=== PATIENT | male | born 1955 | race Caucasian/White ===

== ENCOUNTER → 2016-06-14 | Outpatient (CLI) | payer OTHER ==
[~2016-06-14] MED LIST: AMIT75TA2 PO; ASPI81TA28 PO; ATOR-24 PO; CYAN500T PO; INSU100I23 PO; LIRA18IN SQ; LISI-725 PO; METF-384 PO; NVLNI SQ
[2016-06-14 10:29] LABS: BLOOD UREA NITROGEN 10 mg/dl (7-18); BUN/CREATININE RATIO 10.5 (10-20); CALCIUM 9.1 mg/dl (8.5-10.1); CARBON DIOXIDE 27 mmol/L (21-32); CHLORIDE 107 mmol/L (98-107); GLUCOSE 114 mg/dl (70-99); POTASSIUM 4.7 mmol/L (3.5-5.1); SODIUM 142 mmol/L (136-145)
[2016-06-14 10:34] LABS: CHOLESTEROL 150 mg/dl (0-200); CHOLESTEROL/HDL RATIO 3.8; HDL CHOLESTEROL 40 mg/dl; LDL CHOLESTEROL CALCULATED 74 mg/dl; TRIGLYCERIDES 179 mg/dl (0-150); VERY LOW DENSITY LIPOPROT CALC 36 mg/dl
[2016-06-14 10:40] LABS: ESTIMATED AVERAGE GLUCOSE 192 mg/dl; HA1C FLAG Normal (Normal)
== END | disposition home or self-care (01) ==
LOC: C.LAB1850 09:07
PROVIDERS: ATTEND Internal Medicine Pulmonary Disease
DX: F52.8 Other sexual dysfunction not due to a substance or known physiological condition (principal); E11.42 Type 2 diabetes mellitus with diabetic polyneuropathy

== ENCOUNTER → 2016-11-04 | Outpatient (CLI) | payer OTHER ==
[2016-11-04 12:31] LABS: ESTIMATED AVERAGE GLUCOSE 197 mg/dl; HA1C FLAG Normal (Normal)
== END | disposition home or self-care (01) ==
LOC: C.LAB1850 10:22
PROVIDERS: ATTEND Nurse Practitioner Adult Health
DX: E11.49 Type 2 diabetes mellitus with other diabetic neurological complication (principal)

== ENCOUNTER → 2016-12-12 | Outpatient (CLI) | payer OTHER ==
--- NOTE | 2016-12-12 10:18 | DIAGNOSTIC IMAGING REPORT ---
LUNG SCREENING, LOW DOSE CLINICAL HISTORY: Pulmonary nodule Pain COMPARISON STUDY: No previous studies for comparison. CT DOSE: 89.63 mGy.cm TECHNIQUE: Low-dose helical CT was acquired without intravenous contrast from lung apices to bases and reconstructed at 2.5 mm every 2 mm. CAD was utilized for this study. A dose lowering technique was utilized adhering to the principles of ALARA. FINDINGS: Lungs are clear. No significant pulmonary nodularity. No significant mediastinal or hilar adenopathy. Small pericardial cyst. Trace pericardial effusion. Nonobstructing 4 mm upper pole right renal calcification. Small hiatal hernia. IMPRESSION: 1. Lungs are clear. 2. Small pericardial effusion. 3. Small benign pericardial cyst. 4. Small nonobstructing right renal calcification. CAD FINDINGS: Overall Lung RADS Category: 1 Lung RADS Management Recommendation: Lung-RADS 1: Continue annual screening in 12 months. Lung RADS Follow Up Date: 2017-12-12 Lung RADS Nodule ID: The above report was generated using voice recognition software. It may contain grammatical, syntax or spelling errors. Electronically signed by: New Nunez M.D. 12/12/2016 10:17 AM Dictated Date/Time: 12/12/2016 10:10 AM
== END | disposition home or self-care (01) ==
LOC: C.CTS 09:16
PROVIDERS: ATTEND Neuromusculoskeletal Medicine & OMM
DX: Z72.0 Tobacco use (principal); Z87.891 Personal history of nicotine dependence; I31.3 Pericardial effusion (noninflammatory); N20.0 Calculus of kidney

== ENCOUNTER 2016-12-30 13:56 | Emergency (ER) | payer OTHER ==
[~2016-12-30] VITALS: Ht 175.3 cm; Wt 111.7 kg
[2016-12-30 14:03] VITALS: TEMP 37; Ht 175.3 cm; Wt 111.7 kg
[2016-12-30 14:56] LABS: BASO % 0.4 %; BASO ABS # 0.04 K/uL (0-0.2); COMPLETE YES; EOS % 3.6 %; HEMATOCRIT 42.8 % (42-52); IG% 0.4 %; LYMPH % 39.4 %; LYMPH ABS # 4.47 K/uL (1.2-3.4); MEAN CELL VOLUME 92.4 fL (80-100); MEAN CORPUSCULAR HEMOGLOBIN 30.7 pg (25-34); MEAN CORPUSCULAR HGB CONC 33.2 g/dl (32-36); MEAN PLATELET VOLUME 10.3 fL (7.4-10.4); MONO % 4.3 %; NEUT % 51.9 %; PLATELET COUNT 241 K/uL (130-400); RED BLOOD COUNT 4.63 M/uL (4.7-6.1); WHITE BLOOD COUNT 11.34 K/uL (4.8-10.8)
[2016-12-30 15:02] LABS: URINE APPEARANCE CLEAR (CLEAR); URINE BILIRUBIN NEG (NEG); URINE COLOR YELLOW; URINE NITRITE NEG (NEG); URINE SPECIFIC GRAVITY 1.021 (1.000-1.030); UROBILINOGEN NEG (NEG)
[2016-12-30 15:05] LABS: MANUAL MICROSCOPIC REQUIRED? NO; REVIEW REQ? NO
--- NOTE | 2016-12-30 15:16 | DIAGNOSTIC IMAGING REPORT ---
KUB CLINICAL HISTORY: right flank pain eval for stone pain COMPARISON STUDY: No previous studies for comparison. FINDINGS: Possible 3 mm calculus overlying the course of the distal right ureter within the soft tissue pelvic region. Bilateral nephrocalcinosis poorly seen in the right due to overlying bowel content. Bowel pattern itself is nonobstructive. IMPRESSION: Vascular calcification versus 3 mm calculus distal right ureter. Bilateral nephrocalcinosis. The above report was generated using voice recognition software. It may contain grammatical, syntax or spelling errors. Electronically signed by: New Nunez M.D. 12/30/2016 3:15 PM Dictated Date/Time: 12/30/2016 3:13 PM
[2016-12-30 15:17] LABS: BUN/CREATININE RATIO 12.9 (10-20); CALCIUM 9.6 mg/dl (8.5-10.1); CREATININE 1.2 mg/dl (0.60-1.40); POTASSIUM 4.1 mmol/L (3.5-5.1)
[2016-12-30 16:01] VITALS: BP 135/75; PULSE 80; O2SAT 95
[2016-12-30] MEDS ORDERED: LIRA18IN SQ (16:06)
[2016-12-30] MEDS ORDERED: METF-384 PO (16:06)
[2016-12-30] MEDS ORDERED: INSU100I23 PO (16:06)
[2016-12-30] MEDS ORDERED: ASPI81TA28 PO (16:06)
[2016-12-30] MEDS ORDERED: LISI-725 PO (16:06)
[2016-12-30] MEDS ORDERED: NVLNI SQ (16:06)
[2016-12-30] MEDS ORDERED: AMIT75TA2 PO (16:06)
[2016-12-30] MEDS ORDERED: ATOR-24 PO (16:06)
[2016-12-30] MEDS ORDERED: CYAN500T PO (16:06)
--- NOTE | 2016-12-30 16:20 | EMERGENCY ROOM VISIT NOTE ---
History Report prepared by Tammy: Andrey Ramos Under the Supervision of: Dr. Joselo Holland M.D. First contact with patient: 14:20 Chief Complaint: ABDOMINAL PAIN Stated Complaint: STOMACH PAIN Nursing Triage Summary: pt states, "Something popped in my belly." pt states 40 minutes ago he felt a pop to right lower abdomen, pain radiates to right flank. pt states he was lifting heavy things yesterday. denies urinary symptoms. pt states pain at this time is tolerable. History of Present Illness The patient is a 61 year old male who presents to the Emergency Room with complaints of resolved right lower quadrant abdominal pain that started an hour ago. He rates his pain as a 7/10 in severity. The patient describes his pain as sharp and as if something popped. He states that the pain radiated to his back. The patient reports that he started to experience diaphoresis and hot flashes. He reports that the pain persisted until about 30 minutes ago and the pain resolve. The patient admits that he had a CT scan a couple of weeks ago that showed a right sided kidney stone. He also reports that the CT scan showed a hiatal hernia. He admits that he has a history of hypertension, which he takes medication for, neuropathy, and Diabetes Mellitus. The patient denies fever, vomiting, diarrhea, urinary symptoms, chest pain, and shortness of breath. Source of History: patient Onset: an hour ago Position: abdomen (RLQ) Symptom Intensity: 7/10 Quality: sharp, other ("pop") Timing: resolved Associated Symptoms: + diaphoresis, No fevers, No chest pain, No SOB, No vomiting, No diarrhea, No urinary symptoms Review of Systems See HPI for pertinent positives & negatives. A total of 10 systems reviewed and were otherwise negative. Past Medical & Surgical Medical Problems: (1) Diabetes (2) Hiatal hernia (3) Hypertension (4) Kidney stones (5) Neuropathy Family History Patient reports no known family medical history. Social History Smoking Status: Current Every Day Smoker Marital Status: Housing Status: lives with significant other Current/Historical Medications Scheduled Amitriptyline Hcl (Elavil), 75 MG PO HS Aspirin (Aspirin Ec), 81 MG PO DAILY Atorvastatin (Lipitor), 40 MG PO HS Cyanocobalamin (Vitamin B-12), 1,000 MCG PO DAILY Insulin Glargine (Basaglar Kwikpen), 20 UNITS PO HS Insulin Human NPH (Novolin N), 20 UNITS SQ HS Liraglutide (Victoza), 1.8 MG SQ DAILY Lisinopril (Zestril), 20 MG PO DAILY Metformin Hcl (Glucophage), 1,000 MG PO BID Allergies Coded Allergies: No Known Allergies (Verified , 12/30/16) Physical Exam Vital Signs Date Time Temp Pulse Resp B/P (MAP) Pulse Ox O2 Delivery O2 Flow Rate FiO2 12/30/16 16:01 80 20 135/75 95 12/30/16 14:03 37.0 79 18 134/77 94 Room Air Physical Exam Constitutional: Vital signs reviewed. Eyes: Pupils are equal round reactive to light. Conjunctiva are noninjected. ENT: Pharynx is clear without erythema or exudate. Mucous membranes are moist. Neck supple without meningeal signs. Respiratory: Clear to auscultation bilaterally. Breath sounds are equal bilaterally. Cardiovascular: Regular rate and rhythm. No rubs or gallops. GI: Soft, nondistended and nontender. Bowel sounds are present. No testicular tenderness or swelling. No evidence of inguinal hernia. Musculoskeletal: No peripheral edema. No lower extremity tenderness. Integumentary: No cyanosis. Neurological: The patient is awake and alert. No focal deficits. Psychiatric: Normal affect. Medical Decision & Procedures ER Provider Diagnostic Interpretation: X-ray results as stated below per interpretation by me and the radiologist: KUB CLINICAL HISTORY: right flank pain eval for stone pain COMPARISON STUDY: No previous studies for comparison. FINDINGS: Possible 3 mm calculus overlying the course of the distal right ureter within the soft tissue pelvic region. Bilateral nephrocalcinosis poorly seen in the right due to overlying bowel content. Bowel pattern itself is nonobstructive. IMPRESSION: Vascular calcification versus 3 mm calculus distal right ureter. Bilateral nephrocalcinosis. The above report was generated using voice recognition software. It may contain grammatical, syntax or spelling errors. Electronically signed by: New Nunez M.D. 12/30/2016 3:15 PM Dictated Date/Time: 12/30/2016 3:13 PM Laboratory Results 12/30/16 14:20 Red Blood Count 4.63, Mean Corpuscular Volume 92.4, Mean Corpuscular Hemoglobin 30.7, Mean Corpuscular Hemoglobin Concent 33.2, Mean Platelet Volume 10.3, Neutrophils (%) (Auto) 51.9, Lymphocytes (%) (Auto) 39.4, Monocytes (%) (Auto) 4.3, Eosinophils (%) (Auto) 3.6, Basophils (%) (Auto) 0.4, Neutrophils # (Auto) 5.89, Lymphocytes # (Auto) 4.47, Monocytes # (Auto) 0.49, Eosinophils # (Auto) 0.41, Basophils # (Auto) 0.04 12/30/16 14:20 Test 12/30/16 14:05 12/30/16 14:20 Urine Color YELLOW Urine Appearance CLEAR (CLEAR) Urine pH 5.0 (4.5-7.5) Urine Specific [place] 1.021 (1.000-1.030) Urine Protein NEG (NEG) Urine Glucose (UA) NEG (NEG) Urine Ketones NEG (NEG) Urine Occult Blood 2+ (NEG) Urine Nitrite NEG (NEG) Urine Bilirubin NEG (NEG) Urine Urobilinogen NEG (NEG) Urine Leukocyte Esterase NEG (NEG) Urine WBC (Auto) 1-5 /hpf (0-5) Urine RBC (Auto) 5-10 /hpf (0-4) Urine Hyaline Casts (Auto) 1-5 /lpf (0-5) Urine Epithelial Cells (Auto) 10-20 /lpf (0-5) Urine Bacteria (Auto) NEG (NEG) White Blood Count 11.34 K/uL (4.8-10.8) Red Blood Count 4.63 M/uL (4.7-6.1) Hemoglobin 14.2 g/dL (14.0-18.0) Hematocrit 42.8 % (42-52) Mean Corpuscular Volume 92.4 fL (80-100) Mean Corpuscular Hemoglobin 30.7 pg (25-34) Mean Corpuscular Hemoglobin Concent 33.2 g/dl (32-36) Platelet Count 241 K/uL (130-400) Mean Platelet Volume 10.3 fL (7.4-10.4) Neutrophils (%) (Auto) 51.9 % Lymphocytes (%) (Auto) 39.4 % Monocytes (%) (Auto) 4.3 % Eosinophils (%) (Auto) 3.6 % Basophils (%) (Auto) 0.4 % Neutrophils # (Auto) 5.89 K/uL (1.4-6.5) Lymphocytes # (Auto) 4.47 K/uL (1.2-3.4) Monocytes # (Auto) 0.49 K/uL (0.11-0.59) Eosinophils # (Auto) 0.41 K/uL (0-0.5) Basophils # (Auto) 0.04 K/uL (0-0.2) RDW Standard Deviation 43.8 fL (36.4-46.3) RDW Coefficient of Variation 13.0 % (11.5-14.5) Immature Granulocyte % (Auto) 0.4 % Immature Granulocyte # (Auto) 0.04 K/uL (0.00-0.02) Anion Gap 7.0 mmol/L (3-11) Est Creatinine Clear Calc Drug Dose 81.7 ml/min Estimated GFR () 76.3 Estimated GFR (Non- 65.8 BUN/Creatinine Ratio 12.9 (10-20) Calcium Level 9.6 mg/dl (8.5-10.1) Total Bilirubin 0.6 mg/dl (0.2-1) Direct Bilirubin 0.2 mg/dl (0-0.2) Aspartate Amino Transf (AST/SGOT) 65 U/L (15-37) Alanine Aminotransferase (ALT/SGPT) 242 U/L (12-78) Alkaline Phosphatase 125 U/L (45-117) Total Protein 7.8 gm/dl (6.4-8.2) Albumin 4.2 gm/dl (3.4-5.0) Lipase 276 U/L (73-393) Laboratory results as reviewed by me. ED Course 1434: The patient was evaluated in room A12B. A complete history and physical exam was performed. 1541: I reevaluated the patient and he is no pain. He denies any tenderness in his abdomen. I discussed test results and possible CT scan, which he preferred to hold off on. I told him to follow up with his doctor. The patient is ready for discharge. Medical Decision This is a 61-year-old male who presents with right-sided flank pain. Differential diagnosis includes renal colic, hydronephrosis, hernia, appendicitis, ruptured appendicitis, muscle strain. I did perform a limited focused review of portions of the patient's old chart on the electronic medical record. The patient has had a visit on December 12 when he had a CT done. A non obstructive right kidney stone of 4 mm was found. I did evaluate the patient as noted above. The patient is presenting with sudden onset of right-sided abdominal pain. He states the pain is now completely resolved. He has no tenderness on examination. He has no signs of hernia on examination. He is asymptomatic at this time. He did have a CAT scan of the lungs which demonstrated a right intrarenal calculus. His symptoms seem most likely consistent with renal colic. IV access was established. I did order and personally review the patient's urinalysis as described above. There is hematuria but no signs of infection. I did order and review the patient's blood work as noted in the electronic medical record. His white blood cell count is elevated slightly. His LFTs are also slightly elevated as well. I did order a KUB x-ray. I did review the images myself as well as the radiology report as described above. The patient does have a constipation in the right pelvis that could be consistent with a distal ureteral stone. I did reevaluate the patient. He is completely asymptomatic at this time. He has no tenderness on exam. I did discuss the test results with him in detail. Given his history, physical exam, urine analysis and x-ray I did feel that renal colic was the most likely explanation. I did, however, offer CT scanning for further evaluation but the patient deferred at this time. He will follow closely with his doctor. I did review her return instructions with him as well as his laboratory findings. He will have his doctor repeat his LFTs. He was discharged in good condition. Medication Reconcilliation Current Medication List: was personally reviewed by me Blood Pressure Screening Patient's blood pressure: Elevated blood pressure Blood pressure disposition: Elevated BP felt to be situational Impression Primary Impression: Right flank pain Additional Impression: Abnormal LFTs Scribe Attestation The scribe's documentation has been prepared under my direct and personally reviewed by me in its entirety. I confirm that the note above accurately reflects all work, treatment, procedures, and medical decision making performed by me. Departure Information Dispostion Home / Self-Care Referrals No Doctor, Assigned (PCP) Forms Call Back Authorization, HOME CARE DOCUMENTATION FORM, IMPORTANT VISIT INFORMATION Patient Instructions ED Flank Pain Uncertain Cause, My [facility] Additional Instructions You have been examined and treated today on an emergency basis only. This is not a substitute for, or an effort to provide, complete comprehensive medical care. It is impossible to recognize and treat all injuries or illnesses in a single emergency department visit. It is therefore important that you follow up closely with your physician. Call as soon as possible for an appointment. Return for worsening symptoms or if you develop fever, vomiting, or any other concerning symptoms. Problem Qualifiers
== END 2016-12-30 16:02 | disposition home or self-care (01) ==
LOC: C.EDB 14:00 → C.EDA 16:02
DX: R10.31 Right lower quadrant pain (principal); R94.5 Abnormal results of liver function studies; N20.0 Calculus of kidney; K44.9 Diaphragmatic hernia without obstruction or gangrene; I10 Essential (primary) hypertension; E11.40 Type 2 diabetes mellitus with diabetic neuropathy, unspecified; F17.200 Nicotine dependence, unspecified, uncomplicated; Z87.442 Personal history of urinary calculi; Z79.82 Long term (current) use of aspirin; Z79.4 Long term (current) use of insulin; Z79.84 Long term (current) use of oral hypoglycemic drugs

== ENCOUNTER → 2017-02-25 | Outpatient (CLI) | payer OTHER ==
[2017-02-25 12:19] LABS: ESTIMATED AVERAGE GLUCOSE 197 mg/dl; HA1C FLAG Normal (Normal)
== END | disposition home or self-care (01) ==
LOC: C.LAB1850 11:01
PROVIDERS: ATTEND Neuromusculoskeletal Medicine & OMM
DX: Z51.81 Encounter for therapeutic drug level monitoring (principal); E11.49 Type 2 diabetes mellitus with other diabetic neurological complication; Z79.4 Long term (current) use of insulin

== ENCOUNTER → 2017-06-10 | Outpatient (CLI) | payer OTHER ==
[2017-06-10 09:52] LABS: BLOOD UREA NITROGEN 13 mg/dl (7-18); CALCIUM 9.3 mg/dl (8.5-10.1); CARBON DIOXIDE 24 mmol/L (21-32); CREATININE 1.13 mg/dl (0.60-1.40); GLUCOSE 148 mg/dl (70-99); POTASSIUM 4.2 mmol/L (3.5-5.1); SODIUM 137 mmol/L (136-145)
[2017-06-10 09:56] LABS: ALKALINE PHOSPHATASE 59 U/L (45-117); ALT/SGPT 50 U/L (12-78); AST/SGOT 33 U/L (15-37); CHOLESTEROL 129 mg/dl (0-200); LDL CHOLESTEROL CALCULATED 54 mg/dl; TOTAL PROTEIN 7.6 gm/dl (6.4-8.2)
[2017-06-10 10:22] LABS: HEMOGLOBIN A1C 9.8 % (4.5-5.6)
== END | disposition home or self-care (01) ==
LOC: C.LAB1850 07:08
PROVIDERS: ATTEND Neuromusculoskeletal Medicine & OMM
DX: Z00.00 Encounter for general adult medical examination without abnormal findings (principal); E78.5 Hyperlipidemia, unspecified; I10 Essential (primary) hypertension; E11.49 Type 2 diabetes mellitus with other diabetic neurological complication

== ENCOUNTER 2017-07-18 13:07 | Inpatient (IN) | payer OTHER ==
[~2017-07-18] VITALS: Ht 175.3 cm; Wt 110.0 kg
[~2017-07-18 13:07] MED LIST changes: -AMIT75TA2 PO; -ATOR-24 PO; -CYAN500T PO; -INSU100I23 PO; -LISI-725 PO; -METF-384 PO; -NVLNI SQ
[2017-07-18] MEDS ORDERED: ASPIRIN 81 MG CHEW PO STA (13:36)
[2017-07-18 13:42] LABS: BASO % 0.3 %; BASO ABS # 0.03 K/uL (0-0.2); EOS % 3.1 %; EOS ABS # 0.27 K/uL (0-0.5); HEMATOCRIT 42.1 % (42-52); HEMOGLOBIN 14.7 g/dL (14.0-18.0); IG# 0.03 K/uL (0.00-0.02); LYMPH % 35.4 %; LYMPH ABS # 3.04 K/uL (1.2-3.4); MEAN CELL VOLUME 89.2 fL (80-100); MEAN CORPUSCULAR HEMOGLOBIN 31.1 pg (25-34); MEAN CORPUSCULAR HGB CONC 34.9 g/dl (32-36); MEAN PLATELET VOLUME 9.6 fL (7.4-10.4); MONO % 6.8 %; MONO ABS # 0.58 K/uL (0.11-0.59); NEUT % 54.1 %; NEUT ABS # 4.63 K/uL (1.4-6.5); PLATELET COUNT 210 K/uL (130-400); RED CELL DISTRIBUTION WIDTH SD 42.9 fL (36.4-46.3); WHITE BLOOD COUNT 8.58 K/uL (4.8-10.8)
[2017-07-18] MEDS: NITROGLYCERIN 0.4 MG SL PER TAB CHARGE SL PRN ×3 (13:48→14:01)
--- NOTE | 2017-07-18 14:02 | DIAGNOSTIC IMAGING REPORT ---
SINGLE VIEW CHEST CLINICAL HISTORY: Atypical chest pain. FINDINGS: An AP, portable, upright chest radiograph is compared to study dated 09/29/2012. Correlation is made with chest CT dated 12/12/2016. The examination is degraded by portable technique and apical lordotic positioning. The heart is enlarged and there is atherosclerotic calcification of the thoracic aorta. The pulmonary vasculature is noncongested. Emphysema and chronic interstitial thickening are similar to previous. No airspace consolidation or pleural effusion is identified. No pneumothorax is seen. The bony thorax is grossly intact. IMPRESSION: Cardiomegaly and emphysema with no acute cardiopulmonary abnormality. Electronically signed by: Shaheen Nelson M.D. 07/18/2017 2:01 PM Dictated Date/Time: 07/18/2017 2:00 PM
[2017-07-18 14:04] LABS: BLOOD UREA NITROGEN 13 mg/dl (7-18); CALCIUM 9.8 mg/dl (8.5-10.1); CARBON DIOXIDE 27 mmol/L (21-32); CREATININE 1.22 mg/dl (0.60-1.40); GLUCOSE 237 mg/dl (70-99); POTASSIUM 4.1 mmol/L (3.5-5.1); SODIUM 135 mmol/L (136-145)
[2017-07-18 14:10] LABS: CKMB < 0.5 ng/ml (0.5-3.6)
[2017-07-18] MEDS ORDERED: MoRPHine SULFATE 4 MG/ML 1 ML CARP\\VIAL IV STA (14:21)
[2017-07-18 15:27] LABS: ALBUMIN 4.4 gm/dl (3.4-5.0); TOTAL PROTEIN 8.4 gm/dl (6.4-8.2)
[2017-07-18] MEDS ORDERED: MAGNESIUM HYDROXIDE SUSP 30 ML UDC PO PRN (16:00)
[2017-07-18] MEDS ORDERED: ALUMINUM/MAGNESIUM/SIMETH (MAALOX MAX) 30 ML UDC PO PRN (16:00)
[2017-07-18] MEDS ORDERED: ONDANSETRON INJ 2 MG/ML 2 ML VIAL IV PRN (16:00)
[2017-07-18] MEDS ORDERED: POLYETHYLENE (MIRALAX) 17 GM PACK PO PRN (16:00)
[2017-07-18] MEDS ORDERED: ACETAMINOPHEN 325 MG TAB PO PRN (16:00)
[2017-07-18] MEDS ORDERED: LISI-725 PO (16:06)
[2017-07-18] MEDS ORDERED: CYAN500T PO (16:06)
[2017-07-18] MEDS ORDERED: AMIT75TA2 PO (16:06)
[2017-07-18] MEDS ORDERED: NVLNI SQ (16:06)
[2017-07-18] MEDS ORDERED: METF-384 PO (16:06)
[2017-07-18] MEDS ORDERED: INSU100I23 PO (16:06)
[2017-07-18] MEDS ORDERED: ATOR-24 PO (16:06)
[2017-07-18 17:12] VITALS: BP 122/75; PULSE 74; TEMP 36.5; O2SAT 96; Ht 175.3 cm; Wt 110.0 kg
[2017-07-18 17:14] LABS: HEP C IGG 13 YRS+OLDER_RFLX NEG (NEG)
--- NOTE | 2017-07-18 17:30 | EMERGENCY ROOM VISIT NOTE ---
History Report prepared by Tammy: Maye Yoon Under the Supervision of: Dr. Patrick Ramos D.O. First contact with patient: 13:25 Chief Complaint: CHEST PAIN Stated Complaint: CHEST PAIN WITH TINGLING IN LEFT HAND History of Present Illness The patient is a 62 year old male who presents to the Emergency Room with complaints of constant chest aching beginning at 10 am this morning. The patient states he has had chest pain previously which was indigestion. He reports this current pain is different because he has numbness tingling in his fingers which he has never had before. He reports his pain started in his center chest before moving to left sided chest. The patient rates his pain as a 5/10. He notes taking Zyrtec and Tylenol with no relief. The patient has a history of diabetes, hypertension, high cholesterol and a hiatal hernia. He reports a family history of cardiac disease. The patient is a smoker. Pt denies headache, change in vision, fevers, shortness of breath, nausea, vomiting, diarrhea, pain with urination, and melena. Source of History: patient Onset: 10 am Position: chest (left) Symptom Intensity: 5/10 Quality: ache Timing: constant Associated Symptoms: + chest pain, + numbness, No fevers, No headache, No SOB, No nausea, No vomiting, No diarrhea, No urinary symptoms Review of Systems See HPI for pertinent positives & negatives. A total of 10 systems reviewed and were otherwise negative. Past Medical & Surgical Medical Problems: (1) Chest pain (2) Diabetes (3) Hiatal hernia (4) Hypertension (5) Kidney stones (6) Neuropathy Family History Patient reports no known family medical history. Social History Smoking Status: Current Every Day Smoker Marital Status: Housing Status: lives with significant other Current/Historical Medications Scheduled Amitriptyline Hcl (Elavil), 75 MG PO HS Aspirin (Aspirin Ec), 81 MG PO HS Atorvastatin (Lipitor), 40 MG PO HS Cyanocobalamin (Vitamin B-12), 1,000 MCG PO DAILY Insulin Glargine (Basaglar Kwikpen), 22 UNITS PO QAM Insulin Human NPH (Novolin N), 30 UNITS SQ HS Liraglutide (Victoza), 1.8 MG SQ HS Lisinopril (Zestril), 20 MG PO DAILY Metformin Hcl (Glucophage), 1,000 MG PO BID Allergies Coded Allergies: No Known Allergies (Verified , 12/30/16) Physical Exam Vital Signs Date Time Temp Pulse Resp B/P (MAP) Pulse Ox O2 Delivery O2 Flow Rate FiO2 07/18/17 15:50 84 18 129/63 96 Room Air 07/18/17 14:55 71 18 163/88 95 Room Air 07/18/17 14:03 88 18 148/85 94 Room Air 07/18/17 13:59 91 18 144/91 94 Room Air 07/18/17 13:56 90 18 151/93 95 Room Air 07/18/17 13:40 36.9 95 18 165/93 97 07/18/17 13:40 90 07/18/17 13:30 97 Room Air 07/18/17 13:30 89 18 173/97 96 Room Air 07/18/17 13:17 36.6 84 20 171/89 97 Room Air Physical Exam GENERAL: Sitting up in bed, alert, well appearing, well nourished, no distress, non-toxic EYE EXAM: normal conjunctiva. OROPHARYNX: no exudate, no erythema, lips, buccal mucosa, and tongue normal and mucous membranes are moist NECK: supple, no nuchal rigidity, no adenopathy, non-tender LUNGS: Clear to auscultation. Normal chest wall mechanics HEART: no murmurs, S1 normal and S2 normal ABDOMEN: abdomen soft, non-tender, normo-active bowel sounds, no masses, no rebound or guarding. BACK: Back is symmetrical on inspection and there is no deformity, no midline tenderness, no CVA tenderness. SKIN: no rashes and no bruising UPPER EXTREMITIES: upper extremities are grossly normal. radial pulses equal bilaterally LOWER EXTREMITIES: No pitting edema. calves equal bilaterally. NEURO EXAM: Normal sensorium, cranial nerves II-XII grossly intact, normal speech, no gross weakness of arms, no gross weakness of legs. Medical Decision & Procedures ER Provider Diagnostic Interpretation: Radiology results as stated below per my review and the radiologist's interpretation: SINGLE VIEW CHEST CLINICAL HISTORY: Atypical chest pain. FINDINGS: An AP, portable, upright chest radiograph is compared to study dated 09/29/2012. Correlation is made with chest CT dated 12/12/2016. The examination is degraded by portable technique and apical lordotic positioning. The heart is enlarged and there is atherosclerotic calcification of the thoracic aorta. The pulmonary vasculature is noncongested. Emphysema and chronic interstitial thickening are similar to previous. No airspace consolidation or pleural effusion is identified. No pneumothorax is seen. The bony thorax is grossly intact. IMPRESSION: Cardiomegaly and emphysema with no acute cardiopulmonary abnormality. Electronically signed by: Shaheen Nelson M.D. Laboratory Results 07/18/17 13:30 Red Blood Count 4.72, Mean Corpuscular Volume 89.2, Mean Corpuscular Hemoglobin 31.1, Mean Corpuscular Hemoglobin Concent 34.9, Mean Platelet Volume 9.6, Neutrophils (%) (Auto) 54.1, Lymphocytes (%) (Auto) 35.4, Monocytes (%) (Auto) 6.8, Eosinophils (%) (Auto) 3.1, Basophils (%) (Auto) 0.3, Neutrophils # (Auto) 4.63, Lymphocytes # (Auto) 3.04, Monocytes # (Auto) 0.58, Eosinophils # (Auto) 0.27, Basophils # (Auto) 0.03 07/18/17 13:30 Test 07/18/17 13:30 White Blood Count 8.58 K/uL (4.8-10.8) Red Blood Count 4.72 M/uL (4.7-6.1) Hemoglobin 14.7 g/dL (14.0-18.0) Hematocrit 42.1 % (42-52) Mean Corpuscular Volume 89.2 fL (80-100) Mean Corpuscular Hemoglobin 31.1 pg (25-34) Mean Corpuscular Hemoglobin Concent 34.9 g/dl (32-36) Platelet Count 210 K/uL (130-400) Mean Platelet Volume 9.6 fL (7.4-10.4) Neutrophils (%) (Auto) 54.1 % Lymphocytes (%) (Auto) 35.4 % Monocytes (%) (Auto) 6.8 % Eosinophils (%) (Auto) 3.1 % Basophils (%) (Auto) 0.3 % Neutrophils # (Auto) 4.63 K/uL (1.4-6.5) Lymphocytes # (Auto) 3.04 K/uL (1.2-3.4) Monocytes # (Auto) 0.58 K/uL (0.11-0.59) Eosinophils # (Auto) 0.27 K/uL (0-0.5) Basophils # (Auto) 0.03 K/uL (0-0.2) RDW Standard Deviation 42.9 fL (36.4-46.3) RDW Coefficient of Variation 13.0 % (11.5-14.5) Immature Granulocyte % (Auto) 0.3 % Immature Granulocyte # (Auto) 0.03 K/uL (0.00-0.02) Prothrombin Time 10.6 SECONDS (9.0-12.0) Prothromb Time International Ratio 1.0 (0.9-1.1) Anion Gap 5.0 mmol/L (3-11) Est Creatinine Clear Calc Drug Dose 79.8 ml/min Estimated GFR () 74.2 Estimated GFR (Non- 64.0 BUN/Creatinine Ratio 10.4 (10-20) Calcium Level 9.8 mg/dl (8.5-10.1) Total Bilirubin 1.7 mg/dl (0.2-1) Direct Bilirubin 1.1 mg/dl (0-0.2) Aspartate Amino Transf (AST/SGOT) 897 U/L (15-37) Alanine Aminotransferase (ALT/SGPT) 915 U/L (12-78) Alkaline Phosphatase 158 U/L (45-117) Total Creatine Kinase 107 U/L (39-308) Creatine Kinase MB < 0.5 ng/ml (0.5-3.6) Creatine Kinase MB Ratio (0-3.0) Troponin I < 0.015 ng/ml (0-0.045) Total Protein 8.4 gm/dl (6.4-8.2) Albumin 4.4 gm/dl (3.4-5.0) Lipase 267 U/L (73-393) Hepatitis B Surface Antigen NEG (NEG) Hepatitis C Antibody NEG (NEG) Laboratory results per my review. Medications Administered Medications (Trade) Dose Ordered Sig/Tia Route Start Time Stop Time Status Last Admin Dose Admin Nitroglycerin (Nitrostat Tab) 0.4 mg Q5M PRN SL 07/18/17 13:45 08/17/17 13:44 07/18/17 14:01 0.4 MG Aspirin (Aspirin Chew) 324 mg NOW STAT PO 07/18/17 13:36 4/13/18 13:37 DC 07/18/17 13:48 324 MG Morphine Sulfate (MoRPHine SULFATE INJ) 4 mg NOW STAT IV 07/18/17 14:21 07/18/17 14:22 DC 07/18/17 14:55 4 MG ECG Per My Interpretation Indication: chest pain Rate (beats per minute): 85 Rhythm: normal sinus Findings: no ectopy, other (normal axis) ED Course ED COURSE: Vital signs were reviewed and showed hypertensive The patients medical record was reviewed The above diagnostic studies were performed and reviewed. ED treatments and interventions as stated above. 1331: The patient was evaluated in room C3. A complete history and physical examination was performed. 1336: Ordered Aspirin 324 mg PO. 1345: Ordered Nitroglycerin 0.4 mg SL. 1421: Ordered Morphine Sulfate 4 mg IV. 1503: I updated the patient on his test results. He reports his pain has resolved. 1512: I reviewed the patient's case with Dr. Robins . He will evaluate the patient for further management. 1522: Upon reevaluation, the patient is resting comfortably.I discussed my findings with the patient and he understands and agrees with the treatment plan. Based on the patients age, coexisting illnesses, exam and lab findings the decision to treat as an inpatient was made. The patient remained stable while under my care. The patient will be evaluated for further management. Medical Decision Differential diagnoses includes but is not limited to acute coronary syndrome, myocardial infarction, pericarditis, pulmonary embolus, aortic dissection, pneumonia, pneumothorax, musculoskeletal, shingles, esophageal. Patient is a 62-year-old male presents to the ER for midsternal abdominal pain. Patient notes that this started at 10 AM. He did have some left arm numbness. It is a 3 out of 10 and constant. Patient does have a history of hypertension, hyperlipidemia, diabetes and a smoker. Patient was initially given aspirin and nitro. He was given morphine and did feel significant better. On reevaluation he was having supraumbilical abdominal pain. His chest pain had resolved. At this time added on LFTs and bilirubins. Lipase is normal. Bilirubin was 1.7 and had a transaminitis of 900. Chest x-ray was unremarkable. Patient was given IV fluids. Patient was admitted to internal medicine who will obtain the right upper quadrant ultrasound for additional workup of choledocholithiasis versus cholecystitis. Medication Reconcilliation Current Medication List: was personally reviewed by me Blood Pressure Screening Patient's blood pressure: Elevated blood pressure Blood pressure disposition: Elevated BP felt to be situational Consults Time Called: 1507 Consulting Physician: Dr. Robins Returned Call: 1512 I reviewed the patient's case with Dr. Robins . He will evaluate the patient for further management. Impression Primary Impression: Chest pain, precordial Additional Impressions: Transaminitis Epigastric abdominal pain Question choledocholithiasis versus cholecystitis Scribe Attestation The scribe's documentation has been prepared under my direction and personally reviewed by me in its entirety. I confirm that the note above accurately reflects all work, treatment, procedures, and medical decision making performed by me. Departure Information Dispostion Being Evaluated By Hospitalist Referrals Gaston Gallegos D.O. (PCP) Patient Instructions My [facility] Problem Qualifiers
[2017-07-18] MEDS ORDERED: IV FLUIDS COMPLETED PRN (17:45)
[2017-07-18] MEDS: ENOXAPARIN 40 MG/0.4 ML SYR SC SCH (18:10)
--- NOTE | 2017-07-18 19:55 | History and Physical ---
History & Physical Date & Time of Service: Jul 18, 2017 at 19:54 Chief Complaint: Chest Pain Primary Care Physician: Gaston Gallegos D.O. Past Medical/Surgical History Medical Problems: (1) Abnormal LFTs (2) Diabetes (3) Hiatal hernia (4) Hypertension (5) Kidney stones (6) Neuropathy (7) Right flank pain Family History Patient reports no known family medical history. Social History Smoking Status: Current Every Day Smoker Marital Status: Allergies Coded Allergies: No Known Allergies (Verified , 12/30/16) Home Medications Scheduled Amitriptyline Hcl (Elavil), 75 MG PO HS Aspirin (Aspirin Ec), 81 MG PO HS Atorvastatin (Lipitor), 40 MG PO HS Cyanocobalamin (Vitamin B-12), 1,000 MCG PO DAILY Insulin Glargine (Basaglar Kwikpen), 22 UNITS PO QAM Insulin Human NPH (Novolin N), 30 UNITS SQ HS Liraglutide (Victoza), 1.8 MG SQ HS Lisinopril (Zestril), 20 MG PO DAILY Metformin Hcl (Glucophage), 1,000 MG PO BID Physical Exam Vital Signs Date Time Temp Pulse Resp B/P (MAP) Pulse Ox O2 Delivery O2 Flow Rate FiO2 07/18/17 17:12 36.5 74 18 122/75 96 Room Air 07/18/17 15:50 84 18 129/63 96 Room Air 07/18/17 14:55 71 18 163/88 95 Room Air 07/18/17 14:03 88 18 148/85 94 Room Air 07/18/17 13:59 91 18 144/91 94 Room Air 07/18/17 13:56 90 18 151/93 95 Room Air 07/18/17 13:40 36.9 95 18 165/93 97 07/18/17 13:40 90 07/18/17 13:30 97 Room Air 07/18/17 13:30 89 18 173/97 96 Room Air 07/18/17 13:17 36.6 84 20 171/89 97 Room Air Diagnostics Laboratory Results Results Past 24 Hours Test 07/18/17 13:30 07/18/17 17:15 07/18/17 17:39 Range/Units White Blood Count 8.58 4.8-10.8 K/uL Red Blood Count 4.72 4.7-6.1 M/uL Hemoglobin 14.7 14.0-18.0 g/dL Hematocrit 42.1 42-52 % Mean Corpuscular Volume 89.2 80-100 fL Mean Corpuscular Hemoglobin 31.1 25-34 pg Mean Corpuscular Hemoglobin Concent 34.9 32-36 g/dl Platelet Count 210 130-400 K/uL Mean Platelet Volume 9.6 7.4-10.4 fL Neutrophils (%) (Auto) 54.1 % Lymphocytes (%) (Auto) 35.4 % Monocytes (%) (Auto) 6.8 % Eosinophils (%) (Auto) 3.1 % Basophils (%) (Auto) 0.3 % Neutrophils # (Auto) 4.63 1.4-6.5 K/uL Lymphocytes # (Auto) 3.04 1.2-3.4 K/uL Monocytes # (Auto) 0.58 0.11-0.59 K/uL Eosinophils # (Auto) 0.27 0-0.5 K/uL Basophils # (Auto) 0.03 0-0.2 K/uL RDW Standard Deviation 42.9 36.4-46.3 fL RDW Coefficient of Variation 13.0 11.5-14.5 % Immature Granulocyte % (Auto) 0.3 % Immature Granulocyte # (Auto) 0.03 0.00-0.02 K/uL Prothrombin Time 10.6 9.0-12.0 SECONDS Prothromb Time International Ratio 1.0 0.9-1.1 Sodium Level 135 136-145 mmol/L Potassium Level 4.1 3.5-5.1 mmol/L Chloride Level 103 98-107 mmol/L Carbon Dioxide Level 27 21-32 mmol/L Anion Gap 5.0 3-11 mmol/L Blood Urea Nitrogen 13 7-18 mg/dl Creatinine 1.22 0.60-1.40 mg/dl Est Creatinine Clear Calc Drug Dose 79.8 ml/min Estimated GFR () 74.2 Estimated GFR (Non- 64.0 BUN/Creatinine Ratio 10.4 10-20 Random Glucose 237 70-99 mg/dl Calcium Level 9.8 8.5-10.1 mg/dl Total Bilirubin 1.7 0.2-1 mg/dl Direct Bilirubin 1.1 0-0.2 mg/dl Aspartate Amino Transf (AST/SGOT) 897 15-37 U/L Alanine Aminotransferase (ALT/SGPT) 915 12-78 U/L Alkaline Phosphatase 158 45-117 U/L Total Creatine Kinase 107 39-308 U/L Creatine Kinase MB < 0.5 0.5-3.6 ng/ml Creatine Kinase MB Ratio 0-3.0 Troponin I < 0.015 0-0.045 ng/ml Total Protein 8.4 6.4-8.2 gm/dl Albumin 4.4 3.4-5.0 gm/dl Lipase 267 73-393 U/L Hepatitis B Surface Antigen NEG NEG Hepatitis C Antibody NEG NEG Acetaminophen Level < 2 10-30 ug/ml Bedside Glucose 198 70-99 mg/dl Impression Assessment and Plan admit #[id number] Advanced Directives Existing Living Will: No Existing Power of Geriatrics Physician: No Resuscitation Status VTE Prophylaxis Will order VTE Prophylaxis: Yes
[2017-07-18 19:58] VITALS: BP 129/76; PULSE 77; TEMP 36.9; O2SAT 92
[2017-07-18 20:04] VITALS: O2SAT 92
[2017-07-18] MEDS ORDERED: DEXTROSE 50% 50 ML SYR IV PRN (20:30)
[2017-07-18] MEDS ORDERED: GLUCOSE 10 TABS/TUBE PO PRN (20:30)
[2017-07-18] MEDS ORDERED: GLUCOSE 40% GEL 15 GM TUBE PO PRN (20:30)
[2017-07-18] MEDS ORDERED: GLUCAGON FOR INJ 1 MG VIAL SQ PRN (20:30)
[2017-07-18] MEDS ORDERED: ASPIRIN 81 MG ECTAB PO SCH (21:00)
[2017-07-18] MEDS: AMITRIPTYLINE HCL 50 MG TAB PO SCH (21:32)
[2017-07-18] MEDS: INSULIN ASPART 100 UNITS/ML 3 ML PEN SC SCH (21:39)
--- NOTE | 2017-07-18 21:56 | HISTORY & PHYSICAL EXAMINATION ---
DATE OF ADMISSION: 07/18/2017 CHIEF COMPLAINT: Chest pain. HISTORY OF PRESENT ILLNESS: The patient is a very pleasant 62-year-old male who noted earlier today rather abrupt onset of epigastric and substernal chest pain. He has hard time describing the pain, may be a bit like a pressure, but also more of a kind of a discomfort radiates around to the left side. He has had this off-again, on-again fairly frequently in the past; however, today he broke out in a sweat and had left arm tingling and numb sensation. He came to the ER for further evaluation. The pain has been there absolutely present for at least the last 5-1/2 hours. He notes it waxes and wanes some, but is absolutely not reach to 0. REVIEW OF SYSTEMS: Positive for indigestion on-again, off-again from [id number] or at least a chest pain like this that he believes is indigestion. REVIEW OF SYSTEMS: Otherwise negative, except for as above. PAST MEDICAL HISTORY: Diabetes with polyneuropathy, tobacco abuse, hypertension, hyperlipidemia, obesity, obstructive sleep apnea, and a pulmonary nodule. MEDICATIONS: Amitriptyline, aspirin, atorvastatin, Basaglar, lisinopril, metformin, Victoza, and vitamin B12. PAST SURGICAL HISTORY: Includes a colonoscopy. FAMILY HISTORY: Diabetes. SOCIAL HISTORY: He is a current smoker, a pack a day for several decades. He is . He lives with his . 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 He notes fairly high stress. ALLERGIES: No known drug allergies. PHYSICAL EXAMINATION: VITAL SIGNS: Temperature 36.6, pulse 84, respiratory rate 20, blood pressure 171/89, 97% on room air. GENERAL: He is awake, alert, oriented x3, pleasant, in no acute distress. HEENT: Normocephalic, atraumatic. Mucous membranes are moist. CARDIOVASCULAR: Regular without rubs, murmurs, or gallops. LUNGS: Clear to auscultation bilaterally. No rales, rhonchi, or wheezes. Good effort. ABDOMEN: Soft, nondistended, nontender. He is fairly obese, but there are no masses or organomegaly as best can be ascertained. SKIN: Shows no rashes, no pallor or icterus. EXTREMITIES: Show no cyanosis, clubbing, or edema. No calf tenderness. MUSCULOSKELETAL: Yields no gross lesions. His rib pain is not palpable or reproducible. NEUROLOGIC: Shows cranial nerves II-XII are grossly intact. Gross motor and sensory are intact. MENTAL STATE: Shows good recent and remote recall. Normal mood and affect. Good judgment and insight. LABS AND DIAGNOSTICS: CBC shows a white count of 8.6, hemoglobin 14.7, platelets 210. Complete metabolic panel of sodium 135, potassium 4.1, chloride 103, CO2 27, BUN 13, creatinine 1.22, calcium 9.8, glucose 237, total bilirubin of 1.7 with a direct of 1.1, AST 897, ALT 915, alkaline phosphatase 158. CK total of 107 with an MB of less than 0.5, troponin of less than 0.015. Total protein 8.4, albumin 4.4, lipase 267. Chest x-ray showed cardiomegaly and emphysema. His EKG was sinus without ischemic changes. ASSESSMENT AND PLAN: 1. Acute hepatitis, uncertain etiology of this. This is almost certainly the etiology of his indigestion type pain. See below otherwise. However, he denies any Tylenol ingestions recently. Obviously, we will check the level for completeness. He denies IV drug abuse. He has no recent travel. He has no recent changes in his medications. He has been eating fresh vegetables from the [facility], as a possible source, we will be trending his transaminases, check an acute hepatitis panel. Obviously particularly, if hep A is positive, the department of health will need to be involved. Otherwise, we will continue to trend his LFTs, follow up the ultrasound liver the etiology is yet to be discerned or if his numbers are not improving in the next 12-24 hours, we will need to consult gastroenterology for assistance. 2. Epigastric pain in the context of a smoker, diabetic, male, hypertensive, hyperlipidemic over 45. Given that he is exceedingly high risk, we will rule out acute coronary syndrome and if his cardiac enzymes are negative, check a stress test. 3. Type 2 diabetes. His last A1c was 9.8 just about a month ago. He notes freely that he eats very poorly and likes donuts quite a bit. I discussed the critical need for diet, lifestyle control, and management of his diabetes. His underscores this as well. In the meantime, continue insulin fingersticks and supplemental insulin as needed. 4. Hypertension. Continue his home meds. 5. Tobacco abuse. Weight Loss Physician on cessation. 6. Deep venous thrombosis prophylaxis, Lovenox. RAMÓN
[2017-07-18] MEDS ORDERED: INSULIN HUMAN NPH SQ SCH (22:00)
[2017-07-18 23:37] VITALS: BP 100/61; PULSE 74; TEMP 36.6; O2SAT 90
[2017-07-19 04:03] LABS: BASO % 0.6 %; BASO ABS # 0.05 K/uL (0-0.2); EOS % 3.8 %; EOS ABS # 0.33 K/uL (0-0.5); HEMATOCRIT 43.2 % (42-52); HEMOGLOBIN 15.2 g/dL (14.0-18.0); IG# 0.02 K/uL (0.00-0.02); LYMPH % 37.9 %; LYMPH ABS # 3.28 K/uL (1.2-3.4); MEAN CELL VOLUME 88.9 fL (80-100); MEAN CORPUSCULAR HEMOGLOBIN 31.3 pg (25-34); MEAN CORPUSCULAR HGB CONC 35.2 g/dl (32-36); MEAN PLATELET VOLUME 9.8 fL (7.4-10.4); MONO % 7.3 %; MONO ABS # 0.63 K/uL (0.11-0.59); NEUT % 50.2 %; NEUT ABS # 4.35 K/uL (1.4-6.5); PLATELET COUNT 201 K/uL (130-400); RED CELL DISTRIBUTION WIDTH CV 12.9 % (11.5-14.5); RED CELL DISTRIBUTION WIDTH SD 41.9 fL (36.4-46.3); WHITE BLOOD COUNT 8.66 K/uL (4.8-10.8)
[2017-07-19] MEDS ORDERED: NITROGLYCERIN 0.4 MG SL PER TAB CHARGE SL PRN (04:15)
[2017-07-19] MEDS ORDERED: MoRPHine SULFATE 2 MG/ML CARP IV PRN (04:15)
[2017-07-19 04:17] VITALS: BP 153/80; PULSE 80; TEMP 36.7; O2SAT 92
[2017-07-19 04:40] LABS: ALBUMIN 4.3 gm/dl (3.4-5.0); ALT/SGPT 922 U/L (12-78); AST/SGOT 700 U/L (15-37); BLOOD UREA NITROGEN 11 mg/dl (7-18); CALCIUM 9.3 mg/dl (8.5-10.1); CARBON DIOXIDE 26 mmol/L (21-32); CREATININE 1.16 mg/dl (0.60-1.40); GLUCOSE 159 mg/dl (70-99); POTASSIUM 4.1 mmol/L (3.5-5.1); SODIUM 136 mmol/L (136-145)
[2017-07-19 04:45] LABS: ALKALINE PHOSPHATASE 166 U/L (45-117); CHOLESTEROL 120 mg/dl (0-200); LDL CHOLESTEROL CALCULATED 47 mg/dl; TOTAL PROTEIN 7.8 gm/dl (6.4-8.2)
--- NOTE | 2017-07-19 06:58 | DIAGNOSTIC IMAGING REPORT ---
BILIARY ULTRASOUND CLINICAL HISTORY: Markedly elevated LFTs. COMPARISON STUDY: No previous studies for comparison. FINDINGS: The liver is of increased echogenicity. There are mildly dilated intrahepatic biliary ducts. Pancreas is obscured by overlying bowel. There is no right-sided hydronephrosis. The gallbladder is distended and sludge-filled. There is pericholecystic fluid. The technologist reports a positive sonographic Hernandez sign. The common bile duct is dilated measuring 8 mm. There is a complex mass/fluid collection within the kem hepatis containing echogenic foci. Calculi within a choledochocyst, or calculi within a markedly distended cystic duct cannot be excluded. Additional workup with a CT scan or MRI is suggested. IMPRESSION: 1. Abnormal study with intra and extrahepatic biliary ductal dilatation 2. Distended sludge-filled gallbladder with pericholecystic fluid and a positive sonographic Hernandez sign 3. Indeterminate complex mass/fluid collection within the kem hepatis containing echogenic foci. Calculi within a choledochocyst or markedly distended cystic duct with calculi cannot be excluded. Additional workup is recommended. Electronically signed by: Kash Retana M.D. 07/19/2017 6:56 AM Dictated Date/Time: 07/19/2017 6:48 AM
[2017-07-19] MEDS: CYANOCOBALAMIN 500 MCG TAB (VIT B-12) PO SCH (07:51)
[2017-07-19] MEDS: INSULIN ASPART 100 UNITS/ML 3 ML PEN SC SCH ×4 (07:54→20:21)
[2017-07-19 08:17] VITALS: BP 134/75; PULSE 75; TEMP 36.4; O2SAT 90
[2017-07-19] MEDS ORDERED: CIPROFLOXACIN 400MG / 200ML D5W IV STA (08:40)
[2017-07-19] MEDS ORDERED: INSULIN GLARGINE SOLOSTAR 100 UNITS/ML 3 ML PEN SQ SCH (09:00)
[2017-07-19] MEDS ORDERED: ASPIRIN 81 MG ECTAB PO SCH (09:00)
[2017-07-19] MEDS: LACTATED RINGER'S 1000ML 1,000 ML IV SCH ×2 (09:26→19:43)
[2017-07-19] MEDS: CIPROFLOXACIN / D5W 400 MG in PREMIXED IN D5W 200 ML IV SCH ×2 (09:31→20:28)
--- NOTE | 2017-07-19 10:50 | DIAGNOSTIC IMAGING REPORT ---
MRCP CLINICAL HISTORY: Acute cholangitis abdominal pain COMPARISON STUDY: No previous studies for comparison. FINDINGS: There is a small to moderate pericardial effusion. There is a 4.3 cm right anterior pericardial mass. There is mild intrahepatic biliary ductal dilatation. There is a 5.2 cm mass at the level of the kem hepatis. There is no pancreatic ductal dilatation. The gallbladder is distended, and there is mild pericholecystic edema/fluid. There is a 3 cm long area of common bile duct narrowing, likely secondary to the kem hepatus mass. The common bile duct distal to the mass measures 5 mm. The spleen is top normal in size measuring 11.6 cm. Coronal images reveal a lower mediastinal mass at the thoracoabdominal junction measuring 7 cm. IMPRESSION: 1. Lower mediastinal mass at the thoracoabdominal junction measuring 7 cm in diameter 2. 5.2 cm mass at the level kem hepatis 3. 4.3 cm right anterior pericardial mass 4. Common bile duct narrowing, likely extrinsic and secondary to the kem hepatis mass 5. Intrahepatic biliary ductal dilatation 6. Distended gallbladder with mild pericholecystic edema/fluid 7. No evidence of pancreatic mass. No evidence of pancreatic ductal dilatation. 8. Likely diagnostic considerations include lymphoma or metastatic disease. Electronically signed by: Kash Retana M.D. 07/19/2017 10:49 AM Dictated Date/Time: 07/19/2017 10:38 AM
[2017-07-19 12:29] VITALS: BP 110/70; PULSE 73; TEMP 36.5; O2SAT 90
--- NOTE | 2017-07-19 12:56 | Gastrointestinal Consultation ---
Gastrointestinal Consultation Date of Consultation: Jul 19, 2017 Attending Physician: Dr. Dyson Consulting Physician: Adarsh Frey MD Reason for Consultation: abnormal LFT History of Present Illness Patient is a 62 year old male admitted with abdominal pain and increasing lfts. His pain is now better after pains meds, last dose was at 6:15. First time this happened. He thought this was a heart attack, pain was RUQ + epi gastric and felt tingling on his arm. This has never happened before. has had heart burn kind of symptoms that did NOT respond to tums. Reviewed MR and US. Note hilar area mass Past Medical/Surgical History Medical Problems: (1) Chest pain, precordial Status: Acute (2) Epigastric abdominal pain Status: Acute (3) Transaminitis Status: Acute Family History Leukemia in mother, no colon cancer of other cancers Social History Smoking Status: Current Every Day Smoker Marital Status: Housing Status: lives with significant other Allergies Coded Allergies: No Known Allergies (Verified , 12/30/16) Current Medications Home Meds and Scripts Medications Dose Route/Sig Max Daily Dose Days Date Category Dose Instructions Vitamin B-12 (Cyanocobalamin) 500 Mcg Tab 1,000 Mcg PO DAILY 12/30/16 Reported Victoza (Liraglutide) 18 Mg/3 Ml Inj 1.8 Mg SQ HS 12/30/16 Reported Novolin N (Insulin Human NPH) 100 Units/Ml Susp 30 Units SQ HS 12/30/16 Reported increase ud Glucophage (Metformin Hcl) 1,000 Mg Tab 1,000 Mg PO BID 12/30/16 Reported Zestril (Lisinopril) 20 Mg Tab 20 Mg PO DAILY 12/30/16 Reported Basaglar Kwikpen (Insulin Glargine) 100 Unit/Ml Inj 22 Units PO QAM 12/30/16 Reported Lipitor (Atorvastatin Calcium) 40 Mg Tab 40 Mg PO HS 12/30/16 Reported Aspirin Ec (Aspirin) 81 Mg Tab 81 Mg PO HS 12/30/16 Reported Elavil (Amitriptyline Hcl) 75 Mg Tab 75 Mg PO HS 12/30/16 Reported Review of Systems Constitutional: + weight loss ( very minimal a couple pounds, poorly controlled DM), No fever, No chills Respiratory: No shortness of breath Cardiac: + chest pain Abdomen: + pain, + dark urine, No diarrhea, No constipation, No acolic stools Skin: No rash Physical Exam Date Time Temp Pulse Resp B/P (MAP) Pulse Ox O2 Delivery O2 Flow Rate FiO2 07/19/17 12:29 36.5 73 20 110/70 (83) 90 Room Air 07/19/17 12:00 Room Air 07/19/17 08:17 36.4 75 20 134/75 (94) 90 Room Air 07/19/17 08:00 Room Air 07/19/17 04:17 36.7 80 18 153/80 (104) 92 Room Air 07/19/17 04:10 Room Air 07/19/17 00:00 Room Air 07/18/17 23:37 36.6 74 18 100/61 (74) 90 Room Air 07/18/17 20:04 92 Room Air 07/18/17 19:58 36.9 77 20 129/76 (93) 92 Room Air 07/18/17 17:12 36.5 74 18 122/75 96 Room Air 07/18/17 15:50 84 18 129/63 96 Room Air 07/18/17 14:55 71 18 163/88 95 Room Air 07/18/17 14:03 88 18 148/85 94 Room Air 07/18/17 13:59 91 18 144/91 94 Room Air 07/18/17 13:56 90 18 151/93 95 Room Air 07/18/17 13:40 36.9 95 18 165/93 97 07/18/17 13:40 90 07/18/17 13:30 97 Room Air 07/18/17 13:30 89 18 173/97 96 Room Air 07/18/17 13:17 36.6 84 20 171/89 97 Room Air General Appearance: no apparent distress Neck: no adenopathy, thyroid normal, no JVD Abdomen: normal bowel sounds, no pulsatile mass, + guarding, + tenderness ( livr edge, GB tender), + hepatomegaly ( egde > 2 finger breadth below costal margin.) Extremities: normal inspection, no pedal edema Laboratory Results Last 24 Hours Test 07/18/17 13:30 07/18/17 17:15 07/18/17 17:39 07/18/17 20:31 White Blood Count 8.58 K/uL Red Blood Count 4.72 M/uL Hemoglobin 14.7 g/dL Hematocrit 42.1 % Mean Corpuscular Volume 89.2 fL Mean Corpuscular Hemoglobin 31.1 pg Mean Corpuscular Hemoglobin Concent 34.9 g/dl Platelet Count 210 K/uL Mean Platelet Volume 9.6 fL Neutrophils (%) (Auto) 54.1 % Lymphocytes (%) (Auto) 35.4 % Monocytes (%) (Auto) 6.8 % Eosinophils (%) (Auto) 3.1 % Basophils (%) (Auto) 0.3 % Neutrophils # (Auto) 4.63 K/uL Lymphocytes # (Auto) 3.04 K/uL Monocytes # (Auto) 0.58 K/uL Eosinophils # (Auto) 0.27 K/uL Basophils # (Auto) 0.03 K/uL RDW Standard Deviation 42.9 fL RDW Coefficient of Variation 13.0 % Immature Granulocyte % (Auto) 0.3 % Immature Granulocyte # (Auto) 0.03 K/uL Prothrombin Time 10.6 SECONDS Prothromb Time International Ratio 1.0 Sodium Level 135 mmol/L Potassium Level 4.1 mmol/L Chloride Level 103 mmol/L Carbon Dioxide Level 27 mmol/L Anion Gap 5.0 mmol/L Blood Urea Nitrogen 13 mg/dl Creatinine 1.22 mg/dl Est Creatinine Clear Calc Drug Dose 79.8 ml/min Estimated GFR () 74.2 Estimated GFR (Non- 64.0 BUN/Creatinine Ratio 10.4 Random Glucose 237 mg/dl Calcium Level 9.8 mg/dl Total Bilirubin 1.7 mg/dl Direct Bilirubin 1.1 mg/dl Aspartate Amino Transf (AST/SGOT) 897 U/L Alanine Aminotransferase (ALT/SGPT) 915 U/L Alkaline Phosphatase 158 U/L Total Creatine Kinase 107 U/L Creatine Kinase MB < 0.5 ng/ml Creatine Kinase MB Ratio Troponin I < 0.015 ng/ml Total Protein 8.4 gm/dl Albumin 4.4 gm/dl Lipase 267 U/L Hepatitis B Surface Antigen NEG Hepatitis C Antibody NEG Acetaminophen Level < 2 ug/ml Bedside Glucose 198 mg/dl 269 mg/dl Test 07/18/17 21:59 07/18/17 23:07 07/19/17 03:40 07/19/17 03:49 Troponin I < 0.015 ng/ml < 0.015 ng/ml Bedside Glucose 197 mg/dl 142 mg/dl White Blood Count 8.66 K/uL Red Blood Count 4.86 M/uL Hemoglobin 15.2 g/dL Hematocrit 43.2 % Mean Corpuscular Volume 88.9 fL Mean Corpuscular Hemoglobin 31.3 pg Mean Corpuscular Hemoglobin Concent 35.2 g/dl Platelet Count 201 K/uL Mean Platelet Volume 9.8 fL Neutrophils (%) (Auto) 50.2 % Lymphocytes (%) (Auto) 37.9 % Monocytes (%) (Auto) 7.3 % Eosinophils (%) (Auto) 3.8 % Basophils (%) (Auto) 0.6 % Neutrophils # (Auto) 4.35 K/uL Lymphocytes # (Auto) 3.28 K/uL Monocytes # (Auto) 0.63 K/uL Eosinophils # (Auto) 0.33 K/uL Basophils # (Auto) 0.05 K/uL RDW Standard Deviation 41.9 fL RDW Coefficient of Variation 12.9 % Immature Granulocyte % (Auto) 0.2 % Immature Granulocyte # (Auto) 0.02 K/uL Sodium Level 136 mmol/L Potassium Level 4.1 mmol/L Chloride Level 107 mmol/L Carbon Dioxide Level 26 mmol/L Anion Gap 3.0 mmol/L Blood Urea Nitrogen 11 mg/dl Creatinine 1.16 mg/dl Est Creatinine Clear Calc Drug Dose 83.9 ml/min Estimated GFR () 78.9 Estimated GFR (Non- 68.1 BUN/Creatinine Ratio 9.2 Random Glucose 159 mg/dl Calcium Level 9.3 mg/dl Total Bilirubin 2.2 mg/dl Aspartate Amino Transf (AST/SGOT) 700 U/L Alanine Aminotransferase (ALT/SGPT) 922 U/L Alkaline Phosphatase 166 U/L Total Protein 7.8 gm/dl Albumin 4.3 gm/dl Globulin 3.5 gm/dl Albumin/Globulin Ratio 1.2 Triglycerides Level 233 mg/dl Cholesterol Level 120 mg/dl HDL Cholesterol 26 mg/dl LDL Cholesterol, Calculated 47 mg/dl VLDL Cholesterol, Calculated 47 mg/dl Cholesterol/HDL Ratio 4.6 Test 07/19/17 06:59 07/19/17 09:19 07/19/17 11:33 Bedside Glucose 225 mg/dl 221 mg/dl Impression Patient is a 62 year old male with rising bilirubin and transaminases. MR suggesting hilar mass/ mediastinal mass: Personally I think this mediastinal area is a HH and the mass is originating form the GB infundibulum/CHD, this makes cholangiocarcinoma the top diagnosis. Consider differential of lymphoma, local hematoma, metastasis. Plan 1. CT abdomen, liver protocol 2. Repeat lfts, cbc today, if rising may do ERCP today: Else later with brushing. 3. check LDH and CEA levels 4. keep NPO for now 5. May need EUS with FNA
[2017-07-19 13:44] LABS: ALBUMIN 4.1 gm/dl (3.4-5.0); TOTAL PROTEIN 7.6 gm/dl (6.4-8.2)
[2017-07-19] MEDS ORDERED: OPTIRAY 320 IV PRN (14:45)
[2017-07-19 15:34] VITALS: BP 119/73; PULSE 72; TEMP 36.8; O2SAT 92
--- NOTE | 2017-07-19 16:53 | Progress Note ---
Subjective Date of Service: Jul 19, 2017. 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 w/ furniture sales consultant, review of inpatient medication list You have chest pain and epigastric pain, feels when pressed right upper quadrant no pain on the chest is getting worse, denies fever and chills, denies nausea vomiting diarrhea constipation Problem List Medical Problems: (1) Chest pain, precordial Status: Acute (2) Epigastric abdominal pain Status: Acute (3) Transaminitis Status: Acute Review of Systems Constitutional: + weakness, + fatigue, No fever, No chills, No sweats, No weight loss, No problem reported Eyes: No worsening of vision, No eye pain, No redness, No discharge, No diplopia ENT: No hearing loss, No unusual epistaxis, No nasal symptoms, No sore throat, No tinnitus, No dental problems, No trouble swallowing Respiratory: No cough, No sputum, No wheezing, No shortness of breath, No dyspnea on exertion, No dyspnea at rest, No hemoptysis Cardiac: + chest pain, No orthopnea, No PND, No edema, No claudication, No palpitations Abdomen: + pain, No nausea, No vomiting, No diarrhea, No constipation Musculoskeletal: No joint pain, No muscle pain, No swelling, No calf pain Male : No dysuria, No urinary frequency, No incontinence, No nocturia more than once/night, No slowing stream, No hematuria Neurologic: No memory loss, No paralysis, No weakness, No numbness/tingling, No vertigo, No balance problems Psychiatric: No depression symptoms, No anhedonism, No anxiety, No insomnia, No substance abuse Heme: No abnormal bleeding/bruising, No clotting problems, No swollen lymph nodes, No night sweats Endo: No fatigue, No excessive thirst, No excessive urination Skin: No rash, No itch, No new/changing skin lesions, No color change, No bleeding Objective Vital Signs Date Time Temp Pulse Resp B/P (MAP) Pulse Ox O2 Delivery O2 Flow Rate FiO2 07/19/17 16:00 Room Air 07/19/17 15:34 36.8 72 18 119/73 (88) 92 Room Air 07/19/17 12:29 36.5 73 20 110/70 (83) 90 Room Air 07/19/17 12:00 Room Air 07/19/17 08:17 36.4 75 20 134/75 (94) 90 Room Air 07/19/17 08:00 Room Air 07/19/17 04:17 36.7 80 18 153/80 (104) 92 Room Air 07/19/17 04:10 Room Air 07/19/17 00:00 Room Air 07/18/17 23:37 36.6 74 18 100/61 (74) 90 Room Air 07/18/17 20:04 92 Room Air 07/18/17 19:58 36.9 77 20 129/76 (93) 92 Room Air 07/18/17 17:12 36.5 74 18 122/75 96 Room Air Physical Exam General Appearance: WD/WN, no apparent distress, + obese Eyes: normal inspection, PERRL, EOMI, sclerae normal ENT: normal ENT inspection, hearing grossly normal, pharynx normal Neck: supple, no adenopathy, thyroid normal, no JVD, no carotid bruits, trachea midline Respiratory/Chest: chest non-tender, lungs clear, normal breath sounds, no respiratory distress, no accessory muscle use Cardiovascular: regular rate, rhythm, no edema, no gallop, no JVD, no murmur Abdomen: normal bowel sounds, no organomegaly, no pulsatile mass, + tenderness (In deep right upper quadrant) Extremities: normal range of motion, non-tender, normal inspection, no pedal edema, no calf tenderness, normal capillary refill, pelvis stable Neurologic/Psychiatric: cane cutter II-XII nml as tested, no motor/sensory deficits, alert, normal mood/affect, oriented x 3 Skin: normal color, warm/dry, no rash Lymphatic: no adenopathy Laboratory Results Last 24 Hours Test 07/18/17 17:15 07/18/17 17:39 07/18/17 20:31 07/18/17 21:59 Acetaminophen Level < 2 ug/ml Bedside Glucose 198 mg/dl 269 mg/dl Troponin I < 0.015 ng/ml Test 07/18/17 23:07 07/19/17 03:40 07/19/17 03:49 07/19/17 06:59 Bedside Glucose 197 mg/dl 142 mg/dl 225 mg/dl White Blood Count 8.66 K/uL Red Blood Count 4.86 M/uL Hemoglobin 15.2 g/dL Hematocrit 43.2 % Mean Corpuscular Volume 88.9 fL Mean Corpuscular Hemoglobin 31.3 pg Mean Corpuscular Hemoglobin Concent 35.2 g/dl Platelet Count 201 K/uL Mean Platelet Volume 9.8 fL Neutrophils (%) (Auto) 50.2 % Lymphocytes (%) (Auto) 37.9 % Monocytes (%) (Auto) 7.3 % Eosinophils (%) (Auto) 3.8 % Basophils (%) (Auto) 0.6 % Neutrophils # (Auto) 4.35 K/uL Lymphocytes # (Auto) 3.28 K/uL Monocytes # (Auto) 0.63 K/uL Eosinophils # (Auto) 0.33 K/uL Basophils # (Auto) 0.05 K/uL RDW Standard Deviation 41.9 fL RDW Coefficient of Variation 12.9 % Immature Granulocyte % (Auto) 0.2 % Immature Granulocyte # (Auto) 0.02 K/uL Sodium Level 136 mmol/L Potassium Level 4.1 mmol/L Chloride Level 107 mmol/L Carbon Dioxide Level 26 mmol/L Anion Gap 3.0 mmol/L Blood Urea Nitrogen 11 mg/dl Creatinine 1.16 mg/dl Est Creatinine Clear Calc Drug Dose 83.9 ml/min Estimated GFR () 78.9 Estimated GFR (Non- 68.1 BUN/Creatinine Ratio 9.2 Random Glucose 159 mg/dl Calcium Level 9.3 mg/dl Total Bilirubin 2.2 mg/dl Aspartate Amino Transf (AST/SGOT) 700 U/L Alanine Aminotransferase (ALT/SGPT) 922 U/L Alkaline Phosphatase 166 U/L Troponin I < 0.015 ng/ml Total Protein 7.8 gm/dl Albumin 4.3 gm/dl Globulin 3.5 gm/dl Albumin/Globulin Ratio 1.2 Triglycerides Level 233 mg/dl Cholesterol Level 120 mg/dl HDL Cholesterol 26 mg/dl LDL Cholesterol, Calculated 47 mg/dl VLDL Cholesterol, Calculated 47 mg/dl Cholesterol/HDL Ratio 4.6 Test 07/19/17 09:19 07/19/17 11:33 07/19/17 12:48 07/19/17 13:09 Bedside Glucose 221 mg/dl Total Bilirubin 1.0 mg/dl Direct Bilirubin 0.4 mg/dl Aspartate Amino Transf (AST/SGOT) 409 U/L Alanine Aminotransferase (ALT/SGPT) 796 U/L Alkaline Phosphatase 163 U/L Total Protein 7.6 gm/dl Albumin 4.1 gm/dl Lactate Dehydrogenase 230 U/L Carcinoembryonic Antigen 2.8 ng/ml Prostate Specific Antigen 2.770 ng/ml Assessment and Plan 62 year old male with admitted on July 18, 2017 because of rising bilirubin and transaminases Chest pain upon admission, there was no EKG changes, cardiac enzymes troponin negative 3, believe is atypical chest pain which is from possible radiation of gallbladder disease, differential diagnosis for the chest pain also include acute PE, however patient general condition looks good, possible was 92% in room air, denies difficulty breathing, shortness of breath, or hemoptysis therefore the risk of PE is very low Hilar mass/ mediastinal mass vs the mass form the GB infundibulum/CHD, Differential diagnoses include cholangiocarcinoma Under differential differential of lymphoma, local hematoma, metastasis CT abdomen and pelvis, liver protocol was done, will check chest CT if needed, stable biomarkers were ordered as well Talk to on-call GI doctor planning ERCP if rising liver function test keep NPO for now, May need EUS with FNA History of diabetes with polyneuropathy, tobacco abuse, hypertension, hyperlipidemia, obesity, obstructive sleep apnea, and a pulmonary nodule; related to stable continue current care check HbA1c, also quit smoking offered help, watch blood pressure, GI DVT prophylaxis is covered Continued [facility] stay due to: multiple IV medications needed Discharge planning: home
--- NOTE | 2017-07-19 17:17 | DIAGNOSTIC IMAGING REPORT ---
ABDOMEN AND PELVIS CT WITH IV AND ORAL CONTRAST CT DOSE: 1443.05 mGy.cm HISTORY: Esophageal mass. TECHNIQUE: Multiaxial CT images of the abdomen and pelvis were performed following the use of intravenous and oral contrast. A dose lowering technique was utilized adhering to the principles of ALARA. COMPARISON STUDY: MRCP 07/19/2017. FINDINGS: Bibasilar linear densities consistent with subsegmental atelectasis. No pneumoperitoneum. No pneumatosis. No suspicious lytic or blastic osseous lesions. There is a 4.7 x 2.5 cm anterior pericardial mass. Small pericardial effusion. There is also an ill-defined mass surrounding the distal esophagus/gastroesophageal junction and extending along the undersurface of the heart. This partially surrounds and results in mild narrowing of the suprahepatic IVC. This mass measures approximately 9.9 x 8.1 cm. Multiple gastrohepatic lymph nodes which are borderline enlarged. Dominant lymph node measures 1.4 x 0.9 cm. Gallbladder wall thickening with pericholecystic fluid/inflammatory change. There are few small layering gallstones. There is an infiltrative soft tissue mass at the kem hepatis which surrounds the intra and extrahepatic portions of the portal veins. This measures approximately 6.8 x 5.4 cm. This does not result in portal vein occlusion or significant stenosis. The pancreas and adrenal glands are unremarkable. Bilateral nephrolithiasis. No hydronephrosis. The kidneys enhance normally. There is an enlarged periportal lymph node measuring 2.2 cm. The bladder is unremarkable. No pelvic or inguinal lymphadenopathy. Normal caliber abdominal aorta. No significant bladder wall thickening. A few colonic diverticula. Moderate stool within the colon. No bowel wall thickening or obstruction. Normal appendix. No suspicious lytic or blastic osseous lesions. IMPRESSION: 1. A large soft tissue mass surrounding the distal esophagus and extending along the undersurface of the heart. This measures approximately 9.9 x 8.1 cm. There is a similar-appearing anterior pericardial mass and a kem hepatis mass as described above. There are few prominent gastrohepatic and periportal lymph nodes. Therefore, these findings are highly suspicious for a lymphoma. Metastatic disease could also have a similar appearance. 2. Small pericardial effusion. 3. Gallbladder wall thickening with pericholecystic fluid/inflammatory change and a few small gallstones. This is concerning for acute cholecystitis and could be due to compression of the common bile duct/cystic duct from the kem hepatis mass. Electronically signed by: Flynn Putnam M.D. 07/19/2017 5:16 PM Dictated Date/Time: 07/19/2017 5:06 PM
[2017-07-19] MEDS: ENOXAPARIN 40 MG/0.4 ML SYR SC SCH (18:33)
[2017-07-19 19:57] VITALS: BP 143/76; PULSE 75; TEMP 36.6; O2SAT 90
[2017-07-19] MEDS: AMITRIPTYLINE HCL 50 MG TAB PO SCH (20:27)
[2017-07-19] MEDS: INSULIN HUMAN NPH SQ SCH (20:35)
[2017-07-20 00:38] VITALS: BP 112/65; PULSE 68; TEMP 36.8; O2SAT 92
[2017-07-20 03:57] VITALS: BP 107/66; PULSE 67; TEMP 37.1; O2SAT 91
[2017-07-20] MEDS: LACTATED RINGER'S 1000ML 1,000 ML IV SCH ×2 (05:55→17:31)
[2017-07-20 06:16] LABS: BASO % 0.3 %; BASO ABS # 0.03 K/uL (0-0.2); EOS % 4.1 %; EOS ABS # 0.38 K/uL (0-0.5); HEMATOCRIT 41.1 % (42-52); HEMOGLOBIN 14.3 g/dL (14.0-18.0); IG# 0.02 K/uL (0.00-0.02); LYMPH % 37.9 %; LYMPH ABS # 3.51 K/uL (1.2-3.4); MEAN CELL VOLUME 88.6 fL (80-100); MEAN CORPUSCULAR HEMOGLOBIN 30.8 pg (25-34); MEAN CORPUSCULAR HGB CONC 34.8 g/dl (32-36); MEAN PLATELET VOLUME 9.8 fL (7.4-10.4); MONO % 7.4 %; MONO ABS # 0.68 K/uL (0.11-0.59); NEUT % 50.1 %; NEUT ABS # 4.63 K/uL (1.4-6.5); PLATELET COUNT 202 K/uL (130-400); RED CELL DISTRIBUTION WIDTH CV 13.2 % (11.5-14.5); RED CELL DISTRIBUTION WIDTH SD 42.5 fL (36.4-46.3); WHITE BLOOD COUNT 9.25 K/uL (4.8-10.8)
[2017-07-20 06:55] LABS: ALBUMIN 3.6 gm/dl (3.4-5.0); CALCIUM 9.2 mg/dl (8.5-10.1); CREATININE 1.05 mg/dl (0.60-1.40)
[2017-07-20 06:57] LABS: PHOSPHORUS 3.5 mg/dl (2.5-4.9); TOTAL PROTEIN 7.3 gm/dl (6.4-8.2)
[2017-07-20] MEDS ORDERED: OPTIRAY 320 IV PRN (08:00)
--- NOTE | 2017-07-20 08:11 | DIAGNOSTIC IMAGING REPORT ---
CT (CHEST) THORAX WITH CLINICAL HISTORY: 62 years-old Male presenting with lymphoma. TECHNIQUE: Multidetector CT imaging of the chest was performed without the use of intravenous contrast. IV contrast: None. A dose lowering technique was used consistent with the principles of ALARA (as low as reasonably achievable). COMPARISON: Chest x-ray from 07/18/[address] of the abdomen and pelvis from 07/19/2017. CT DOSE (mGy.cm): The estimated cumulative dose is 828.41. FINDINGS: Rubberizing Mechanic topogram: Unremarkable. On soft tissue windows, subcentimeter nodule noted in the right lobe of the thyroid. Pathologically enlarged pericardial lymph node measuring 2.4 cm in the short axis. Atherosclerosis of the aorta. Normal heart size. Coronary artery calcification. Small pericardial effusion. Extensive hypodensity along the inferior wall of the heart circumferentially involving the distal esophagus. This hypodensity is more dense than the small pericardial effusion. Ill-defined soft tissue at the level of the kem hepatis likely a harsh conglomerate. Additional pathologically enlarged lymph node in the kem hepatis measures 1.4 cm in the short axis. On lung windows, minimal dependent changes likely atelectasis. Mild apical predominant emphysema. No other focal nodule or infiltrate. Airways patent. On bone windows, degenerative changes of the spine. IMPRESSION: 1. Extensive abnormal hypodense soft tissue along the inferior wall of the heart and circumferentially involving the distal esophagus. This is associated with a pathologically enlarged pericardial lymph node and harsh conglomerate at the kem hepatis. These findings are highly suspicious for lymphoma. Further evaluation with PET CT to be considered. 2. Small pericardial effusion. A malignant effusion cannot be excluded. 3. Mild emphysema. Electronically signed by: Brooks Stephens M.D. 07/20/2017 8:10 AM Dictated Date/Time: 07/20/2017 8:03 AM
[2017-07-20] MEDS: INSULIN ASPART 100 UNITS/ML 3 ML PEN SC SCH ×4 (08:23→20:31)
[2017-07-20] MEDS: CYANOCOBALAMIN 500 MCG TAB (VIT B-12) PO SCH (08:24)
[2017-07-20] MEDS: CIPROFLOXACIN / D5W 400 MG in PREMIXED IN D5W 200 ML IV SCH ×2 (08:24→20:29)
[2017-07-20] MEDS: INSULIN GLARGINE SOLOSTAR 100 UNITS/ML 3 ML PEN SQ SCH (08:25)
[2017-07-20 08:39] VITALS: BP 138/80; PULSE 78; TEMP 36; O2SAT 92
--- NOTE | 2017-07-20 11:52 | ONCOLOGY CONSULTATION ---
DATE OF CONSULTATION: 07/20/2017 REASON FOR CONSULTATION: Suspected lymphoproliferative or neoplastic process involving the inferior wall of the heart and distal esophagus. HISTORY OF PRESENT ILLNESS: Mr. Clements is a very pleasant 62-year-old gentleman who presents and subsequently admitted to [facility] with atypical chest pain on 07/18/2017. On the day of admission, the patient had described substernal chest pain. He describes as a dull ache which had radiated towards the left side. He admits to previously experiencing similar pain, but became more alarmed during the last episode because of radiation to the left hand and fingers. The patient thought he was having a myocardial infarction and thought it was best to come to the Emergency Room. He describes the pain event lasting several hours. He was administered IV morphine with immediate relief. Part of the initial workup included a CT scan of the chest, abdomen, and pelvis which reveals an extensive hypodense soft tissue lesion along the inferior wall of the heart and circumferentially around the distal esophagus. A small pleural effusion is also noted. CT of the abdomen and pelvis again reveals the same described mass circumferentially around the distal esophagus in addition to gallbladder wall thickening concerning for acute cholecystitis. Mr. Clements's transaminases are markedly elevated. The primary service is screening for an underlying hepatitis. Clinically, the patient denies fevers, chills or sweats. His appetite and weight have remained stable. There is suggestion he will undergo an endobronchial ultrasound in hopes of obtaining a biopsy. At present, however, no established diagnosis has been made. PAST MEDICAL HISTORY: Significant for hyperlipidemia and hypertension as well as type 2 diabetes mellitus. MEDICATIONS: Prior to admission include aspirin, atorvastatin, amitriptyline, lisinopril, metformin, Victoza, vitamin B12, and BASAGLAR. ALLERGIES: No known drug allergies. 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 He is , has grown children. He is a pack and half a day smoker x45 years and no longer drinks alcohol. FAMILY HISTORY: Mother suffers from CLL and diabetes mellitus. REVIEW OF SYSTEMS: As per HPI, negative for fevers, chills or sweats. He is not anorexic or losing weight. SKIN: No rashes or lesions. No history of dermatoses. HEENT: Negative for headaches, lightheadedness or dizziness. No acute visual or hearing deficits. No sinus symptoms, sore throat or dysphagia noted. LYMPH: No history of lymphoproliferative disorder or peripheral lymphadenopathy. CARDIAC: Negative for history of coronary artery disease. Again, he was admitted for atypical chest pain, no palpitations otherwise described. PULMONARY: Negative for COPD. No shortness of breath, dyspnea or orthopnea. No cough or hemoptysis. GASTROINTESTINAL: Negative for abdominal pain, nausea, vomiting, diarrhea or constipation, hematochezia or melenic stools. GENITOURINARY: No hematuria, dysuria, urinary incontinence. PSYCHIATRIC: Negative for anxiety, depression or psychoses. ENDOCRINE: Positive for type 2 diabetes mellitus. NEUROLOGIC: Negative for seizure, stroke, or migraine headache. HEMATOLOGIC: No history of anemia, thrombophilia or bleeding diathesis. PHYSICAL EXAMINATION: GENERAL: Well developed and nourished 62-year-old gentleman, awake, alert and appropriate, in no acute distress. VITAL SIGNS: Temperature 36, pulse 78, respirations 18, blood pressure 138/80. SKIN: Warm, dry, noncyanotic without petechia, rash or ecchymosis. HEAD: Atraumatic, normocephalic. EYES: PERRLA, EOMI. Sclerae nonicteric. No conjunctival injection. ENT: Nares patent without rhinorrhea or discharge. Throat clear. Tongue is midline. Mucous membranes are moist. NECK: Supple without JVD or thyromegaly. LYMPH: No cervical, supraclavicular, axillary or inguinal palpable nodes. HEART: Regular rate and rhythm. No clicks, rubs, murmurs or gallops. LUNGS: Clear to auscultation bilaterally. ABDOMEN: Soft, nontender, nondistended, without palpable hepatosplenomegaly. EXTREMITIES: No calf tenderness or swelling. No clubbing, cyanosis or edema. NEUROLOGICAL: He is awake, alert and oriented x3. Cranial nerves are intact. No gross motor or sensory deficits are noted. LABORATORY DATA: WBC count 9250, hemoglobin 14.3, platelet count 202,000, sodium 136, potassium 4.0, chloride 106, carbon dioxide 26, BUN 11, creatinine 1.05. AST 194, ALT 527, alkaline phosphatase elevated at 141, direct bilirubin mildly elevated at 0.4. IMPRESSION: 1. Endocardial/distal esophageal soft tissue lesion. 2. Possible cholecystitis. 3. Elevated liver transaminases. 4. Atypical chest pain attributable to #1. PLAN: I had the pleasure to meet Mr. Clements at bedside today. I reviewed the most recent clinical notes, lab reports, and radiographic results. Clearly he has a relatively large soft tissue mass that surrounds the inferior portion of his heart and extends down to the distal esophagus. This anatomic location may be amenable to endobronchial ultrasound and subsequent biopsy. If not, would recommend consulting Dr. Osman, thoracic surgery, to facilitate obtaining tissue. As the interpreting radiologist suggests lymphomas tend to develop in unusual places and conceivably may be the diagnosis. However, he does have an extensive smoking history and therefore lung cancer cannot be excluded. Obviously, I cannot provde formal recommendations until diagnosis is confirmed. I will sign Mr. Clements's case out to my partner who will take over service tomorrow morning. His pain seems to be reasonably well controlled. As for the liver transaminases, I agree with screening for hepatitis. However, his gallbladder appears to be inflamed and therefore may be the underlying cause. I have nothing further to add at this time and we will continue to periodically follow Mr. Clements and arrange for outpatient followup as appropriate upon discharge. Thank you very much for allowing me to participate in his care. If you have any questions or concerns, feel free to call me at any time. RAMÓN
[2017-07-20 12:50] VITALS: BP 153/80; PULSE 72; TEMP 36.7; O2SAT 91
--- NOTE | 2017-07-20 13:01 | ECHOCARDIOGRAM REPORT ---
*NOTICE TO RECEIVING [employer] This information is strictly Confidential and protected under [place] law. [place] law prohibits you from making any further disclosure of this information unless further disclosure is expressly permitted by the written consent of the person to whom it pertains or is authorized by law. A general authorization for the release of medical or other information is not sufficient for this purpose. Hospital accepts no responsibility if the information is made available to any other person, INCLUDING THE PATIENT. Interpretation Summary * Name: PETTY GANNON Study Date: 07/20/2017 10:13 AM BP: 107/66 mmHg * Patient Location: C.2T\S\S231\S\1 HR: 67 * : 1955 (M/d/yyyy) Gender: Male Height: 69 in * Age: 62 yrs Ethnicity: CA Weight: 248 lb * Ordering Physician: Juan Pablo Dyson * Performed By: Mary Mast RDCS * * Reason For Study: LYMPHOMA * BSA: 2.3 m2 * -- Conclusions -- * 1. Normal LV size. Mild concentric LVH. * 2. Normal LV systolic function. LVEF 55-60 %. No regional wall motion abnormalities. Grade 1 diastolic dysfunction. * 3. Normal RV size and function. * 4. Moderate aortic valve sclerosis without stenosis. * 5. Small pericardial effusion without signs of tamponade. * 6. Normal estimated PA and RA pressures. * 7. No prior studies for comparison. Procedure Details * A complete two-dimensional transthoracic echocardiogram was performed (2D, M-mode, Doppler and color flow Doppler). Left Ventricle * The left ventricle is grossly normal size. * There is mild concentric left ventricular hypertrophy. * Ejection Fraction = 55-60%. * No regional wall motion abnormalities noted. Right Ventricle * The right ventricle is grossly normal size. * The right ventricular systolic function is normal as assessed by tricuspid annular plane systolic excursion (TAPSE) (normal >1.5 cm). Atria * The left atrial size is normal. * The right atrium is mildly dilated. Mitral Valve * The mitral valve leaflets appear normal. There is no evidence of stenosis, fluttering, or prolapse. * There is no mitral valve stenosis. * There is trace mitral regurgitation. Tricuspid Valve * There is trace tricuspid regurgitation. Aortic Valve * Aortic valve sclerosis moderate, without significant aortic valvular stenosis. * The aortic valve is trileaflet. * There is no significant aortic regurgitation. Pulmonic Valve * The pulmonary valve is inadequately visualized, but the Doppler data is adequate for interpretation. * Pulmonic stenosis is absent. * There is no significant pulmonary regurgitation. Great Vessels * The aortic root and proximal ascending aorta are normal sized. Pericardium/Pleural * Small pericardial effusion. * There are no echocardiographic indications of cardiac tamponade. Great Vessels * Normal inferior vena cava size and collapsability with sniff indicates a normal right atrial pressure of 3 mmHg Left Ventricular Diastolic Function * Grade I diastolic dysfunction, (abnormal relaxation pattern). MMode 2D Measurements and Calculations IVSd 1.1 cm IVSs 1.7 cm LVIDd 5.7 cm LVIDs 3.6 cm LVPWd 1.4 cm LVPWs 2.3 cm IVS/LVPW 0.75 FS 36.3 % EDV(Teich) 160.5 ml ESV(Teich) 55.7 ml EF(Teich) 65.3 % EDV(cubed) 185.9 ml ESV(cubed) 48.0 ml EF(cubed) 74.2 % % IVS thick 62.0 % % LVPW thick 61.1 % LV mass(C)d 308.0 grams LV mass(C)dI 136.1 grams/m\S\2 LV mass(C)s 339.4 grams LV mass(C)sI 149.9 grams/m\S\2 SV(Teich) 104.8 ml SI(Teich) 46.3 ml/m\S\2 SV(cubed) 137.9 ml SI(cubed) 60.9 ml/m\S\2 ACS 1.0 cm LA dimension 4.1 cm asc Aorta Diam 3.9 cm LVOT diam 2.4 cm LVOT area 4.7 cm\S\2 LVAd ap4 31.1 cm\S\2 LVLd ap4 8.0 cm EDV(MOD-sp4) 103.9 ml EDV(sp4-el) 103.4 ml LVAs ap4 15.6 cm\S\2 LVLs ap4 6.6 cm ESV(MOD-sp4) 37.1 ml ESV(sp4-el) 31.1 ml EF(MOD-sp4) 64.3 % EF(sp4-el) 69.9 % LVAd ap2 37.3 cm\S\2 LVLd ap2 8.6 cm EDV(MOD-sp2) 131.1 ml EDV(sp2-el) 137.6 ml LVAs ap2 19.4 cm\S\2 LVLs ap2 7.1 cm ESV(MOD-sp2) 45.2 ml ESV(sp2-el) 45.4 ml EF(MOD-sp2) 65.6 % EF(sp2-el) 67.0 % LVLd %diff 7.3 % EDV(MOD-bp) 119.6 ml LVLs %diff 5.9 % ESV(MOD-bp) 40.9 ml EF(MOD-bp) 65.8 % SV(MOD-sp4) 66.7 ml SI(MOD-sp4) 29.5 ml/m\S\2 SV(MOD-sp2) 85.9 ml SI(MOD-sp2) 38.0 ml/m\S\2 SV(MOD-bp) 78.8 ml SI(MOD-bp) 34.8 ml/m\S\2 SV(sp4-el) 72.3 ml SI(sp4-el) 31.9 ml/m\S\2 SV(sp2-el) 92.1 ml SI(sp2-el) 40.7 ml/m\S\2 Doppler Measurements and Calculations MV E max manny 87.0 cm/sec MV A max manny 92.1 cm/sec MV E/A 0.95 MV dec time 0.17 sec Ao V2 max 188.1 cm/sec Ao max PG 14.2 mmHg Ao max PG (full) 12.0 mmHg GISSELLE(V,A) 1.8 cm\S\2 GISSELLE(V,D) 1.8 cm\S\2 LV V1 max PG 2.1 mmHg LV V1 max 72.5 cm/sec PA V2 max 69.0 cm/sec PA max PG 1.9 mmHg
--- NOTE | 2017-07-20 14:41 | Progress Note ---
Subjective Date of Service: Jul 20, 2017. Subjective Pt evaluation today including: conversation w/ patient, conversation w/ family , physical exam, chart review, lab review, review of studies, conversation w/ siebel consultant, review of inpatient medication list Voiding: no voiding problems Generally doing good, but is over whelmed with too much informations Problem List Medical Problems: (1) Chest pain, precordial Status: Acute (2) Epigastric abdominal pain Status: Acute (3) Transaminitis Status: Acute Review of Systems Constitutional: + weakness, + fatigue, No fever, No chills, No sweats, No weight loss, No problem reported Eyes: No worsening of vision, No eye pain, No redness, No discharge, No diplopia ENT: No hearing loss, No unusual epistaxis, No nasal symptoms, No sore throat, No tinnitus, No dental problems, No trouble swallowing Respiratory: No cough, No sputum, No wheezing, No shortness of breath, No dyspnea on exertion, No dyspnea at rest, No hemoptysis Cardiac: No chest pain, No orthopnea, No PND, No edema, No claudication, No palpitations Abdomen: No pain, No nausea, No vomiting, No diarrhea, No constipation Musculoskeletal: No joint pain, No muscle pain, No swelling, No calf pain Male : No dysuria, No urinary frequency, No incontinence, No nocturia more than once/night, No slowing stream, No hematuria Neurologic: No memory loss, No paralysis, No weakness, No numbness/tingling, No vertigo, No balance problems Psychiatric: No depression symptoms, No anhedonism, No anxiety, No insomnia, No substance abuse Heme: No abnormal bleeding/bruising, No clotting problems, No swollen lymph nodes, No night sweats Endo: No fatigue, No excessive thirst, No excessive urination Skin: No rash, No itch, No new/changing skin lesions, No color change, No bleeding Objective Vital Signs Date Time Temp Pulse Resp B/P (MAP) Pulse Ox O2 Delivery O2 Flow Rate FiO2 07/20/17 12:50 36.7 72 20 153/80 (104) 91 Room Air 07/20/17 12:00 Room Air 07/20/17 08:39 36.0 78 18 138/80 (99) 92 Room Air 07/20/17 08:00 Room Air 07/20/17 04:00 Room Air 07/20/17 03:57 37.1 67 18 107/66 (80) 91 07/20/17 00:38 36.8 68 18 112/65 (81) 92 07/20/17 00:00 Room Air 07/19/17 20:00 Room Air 07/19/17 19:57 36.6 75 18 143/76 (98) 90 Room Air 07/19/17 16:00 Room Air 07/19/17 15:34 36.8 72 18 119/73 (88) 92 Room Air Physical Exam General Appearance: WD/WN, no apparent distress, + obese Eyes: normal inspection, PERRL, EOMI, sclerae normal ENT: normal ENT inspection, hearing grossly normal, pharynx normal Neck: supple, no adenopathy, thyroid normal, no JVD, no carotid bruits, trachea midline Respiratory/Chest: chest non-tender, normal breath sounds, no respiratory distress, no accessory muscle use, + decreased breath sounds Cardiovascular: regular rate, rhythm, no edema, no gallop, no JVD, no murmur Abdomen: normal bowel sounds, non tender, soft, no organomegaly, no pulsatile mass Extremities: normal range of motion, non-tender, normal inspection, no pedal edema, no calf tenderness, normal capillary refill, pelvis stable Neurologic/Psychiatric: jackerman II-XII nml as tested, no motor/sensory deficits, alert, normal mood/affect, oriented x 3 Skin: normal color, warm/dry, no rash Lymphatic: no adenopathy Laboratory Results Last 24 Hours Test 07/19/17 17:40 07/19/17 20:14 07/20/17 05:41 07/20/17 06:55 Bedside Glucose 105 mg/dl 129 mg/dl 134 mg/dl White Blood Count 9.25 K/uL Red Blood Count 4.64 M/uL Hemoglobin 14.3 g/dL Hematocrit 41.1 % Mean Corpuscular Volume 88.6 fL Mean Corpuscular Hemoglobin 30.8 pg Mean Corpuscular Hemoglobin Concent 34.8 g/dl Platelet Count 202 K/uL Mean Platelet Volume 9.8 fL Neutrophils (%) (Auto) 50.1 % Lymphocytes (%) (Auto) 37.9 % Monocytes (%) (Auto) 7.4 % Eosinophils (%) (Auto) 4.1 % Basophils (%) (Auto) 0.3 % Neutrophils # (Auto) 4.63 K/uL Lymphocytes # (Auto) 3.51 K/uL Monocytes # (Auto) 0.68 K/uL Eosinophils # (Auto) 0.38 K/uL Basophils # (Auto) 0.03 K/uL RDW Standard Deviation 42.5 fL RDW Coefficient of Variation 13.2 % Immature Granulocyte % (Auto) 0.2 % Immature Granulocyte # (Auto) 0.02 K/uL Sodium Level 136 mmol/L Potassium Level 4.0 mmol/L Chloride Level 106 mmol/L Carbon Dioxide Level 26 mmol/L Anion Gap 4.0 mmol/L Blood Urea Nitrogen 11 mg/dl Creatinine 1.05 mg/dl Est Creatinine Clear Calc Drug Dose 92.7 ml/min Estimated GFR () 89.0 Estimated GFR (Non- 76.8 BUN/Creatinine Ratio 10.0 Random Glucose 122 mg/dl Calcium Level 9.2 mg/dl Phosphorus Level 3.5 mg/dl Magnesium Level 2.0 mg/dl Total Bilirubin 1.0 mg/dl Direct Bilirubin 0.4 mg/dl Aspartate Amino Transf (AST/SGOT) 194 U/L Alanine Aminotransferase (ALT/SGPT) 527 U/L Alkaline Phosphatase 141 U/L Total Protein 7.3 gm/dl Albumin 3.6 gm/dl Report of chest CT on July 20, 2017: 1. Extensive abnormal hypodense soft tissue along the inferior wall of the heart and circumferentially involving the distal esophagus. This is associated with a pathologically enlarged pericardial lymph node and harsh conglomerate at the kem hepatis. These findings are highly suspicious for lymphoma. Further evaluation with PET CT to be considered. 2. Small pericardial effusion. A malignant effusion cannot be excluded. 3. Mild emphysema. MRCP on July 19, 2017 per report 1. Lower mediastinal mass at the thoracoabdominal junction measuring 7 cm in diameter 2. 5.2 cm mass at the level kem hepatis 3. 4.3 cm right anterior pericardial mass 4. Common bile duct narrowing, likely extrinsic and secondary to the kem hepatis mass 5. Intrahepatic biliary ductal dilatation 6. Distended gallbladder with mild pericholecystic edema/fluid 7. No evidence of pancreatic mass. No evidence of pancreatic ductal dilatation. 8. Likely diagnostic considerations include lymphoma or metastatic disease. Abdominal CT per report: 1. A large soft tissue mass surrounding the distal esophagus and extending along the undersurface of the heart. This measures approximately 9.9 x 8.1 cm. There is a similar-appearing anterior pericardial mass and a kem hepatis mass as described above. There are few prominent gastrohepatic and periportal lymph nodes. Therefore, these findings are highly suspicious for a lymphoma. Metastatic disease could also have a similar appearance. 2. Small pericardial effusion. 3. Gallbladder wall thickening with pericholecystic fluid/inflammatory change and a few small gallstones. This is concerning for acute cholecystitis and could be due to compression of the common bile duct/cystic duct from the kem hepatis mass. Assessment and Plan 62 year old male with admitted on July 18, 2017 because of rising bilirubin and transaminases Chest pain upon admission, there was no EKG changes, cardiac enzymes troponin negative 3, believe is atypical chest pain which is from possible radiation of gallbladder disease, differential diagnosis for the chest pain also include acute PE, however patient general condition looks good, possible was 92% in room air, denies difficulty breathing, shortness of breath, or hemoptysis therefore the risk of PE is very low Possible lymphoma with Hilar mass/ mediastinal mass vs the mass form the GB infundibulum/CHD, Endocardial/distal esophageal soft tissue lesion. differential differential of lymphoma, local hematoma, metastasis Possible cholecystitis, Differential diagnoses include cholangiocarcinoma Elevated liver transaminases. MRCP, abdominal CT and chest CT results see in the above keep NPO for now, GI Dr. Ronquillo plan for EUS with FNA tomorrow with flow cytometry Has requested surgeon to see if need to have cholecystectomy or not, will continue current antibiotics for now, possible only need a short course of antibiotics such as total 7 days for possible cholecystitis, all possible patient will need to follow-up with surgeons recommendation above possible cholecystitis If he was not able to get enough samples we will recommend consulting Dr. Osman, thoracic surgery, to facilitate obtaining tissue. Discussed with patient and with the present orders bedside in detail about patient conditions, oncologist Dr. Gaitan saw the patient as well, can follow-up with him after definite pathology report. Patient may be okay to discharge to home if has good enough sample was obtained tomorrow. History of diabetes with polyneuropathy, tobacco abuse, hypertension, hyperlipidemia, obesity, obstructive sleep apnea, and a pulmonary nodule: relative to stable, continue current care His consult to quit smoking offered help, watch blood pressure, GI DVT prophylaxis is covered Continued [facility] stay due to: multiple IV medications needed Discharge planning: home
[2017-07-20 14:46] LABS: HEPATITIS A IGM TC 51813E NON-REACTIVE (NON-REACTIVE); HEPATITIS B CORE IGM TC51854R NON-REACTIVE (NON-REACTIVE)
[2017-07-20 15:23] VITALS: BP 153/91; PULSE 75; TEMP 36.8; O2SAT 90
[2017-07-20] MEDS: ENOXAPARIN 40 MG/0.4 ML SYR SC SCH (17:32)
--- NOTE | 2017-07-20 17:46 | Medical Consult ---
Consultation Date of Consultation: Jul 20, 2017. Attending Physician: Juan Pablo Dyson MD, PhD Reason for Consultation: Possible Cholecystitis. History of Present Illness Mr. Clements is a 62-year-old male with past medical history significant for diabetes, hypertension, hyperlipidemia, obstructive sleep apnea and lung nodule who was admitted to [facility] with abdominal pain and increasing LFTs. Patient reports that he has experienced pain in his right upper quadrant and epigastric region off and on now for a while. He denies nausea or vomiting. He denies constipation or diarrhea. Total Bili 1.0; Direct Bili 0.4; AST 194; ALT 527; Alk Phos 141. Currently, patient is afebrile. The abdominal pain has greatly improved since admission. Past Medical/Surgical History Medical Problems: (1) Chest pain, precordial Status: Acute (2) Epigastric abdominal pain Status: Acute (3) Transaminitis Status: Acute Family History Patient reports no known family medical history. Social History Smoking Status: Current Every Day Smoker Marital Status: Housing Status: lives with significant other Allergies Coded Allergies: No Known Allergies (Verified , 12/30/16) Current Inpatient Medications Current Inpatient Medications Medications (Trade) Dose Ordered Sig/Tia Route Start Time Stop Time Status Last Admin Dose Admin Enoxaparin Sodium (Lovenox Inj) 40 mg Q24H SC 07/18/17 18:00 08/17/17 17:59 07/19/17 18:33 40 MG Al Hydrox/Mg Hydrox/Simethicone (Maalox Max Susp) 15 ml Q4H PRN PO 07/18/17 16:00 08/17/17 15:59 07/19/17 04:15 15 ML Magnesium Hydroxide (Milk Of Magnesia Susp) 30 ml Q12H PRN PO 07/18/17 16:00 08/17/17 15:59 Ondansetron HCl (Zofran Inj) 4 mg Q6H PRN IV 07/18/17 16:00 08/17/17 15:59 Polyethylene (Miralax Powder Packet) 17 gm DAILY PRN PO 07/18/17 16:00 08/17/17 15:59 Miscellaneous (Iv Fluids Completed) 1 ea PRN PRN N/A 07/18/17 17:45 07/18/18 17:44 Insulin Aspart (novoLOG ASPART) SLIDING SCALE G... ACHS SC 07/18/17 21:00 08/17/17 20:59 07/20/17 12:19 2 UNITS Glucose (Glucose 40% Gel) 15-30 GRAMS 15 GRAMS... UD PRN PO 07/18/17 20:30 08/17/17 20:29 Glucose (Glucose Chew Tab) 4-8 Tablets 4 Tabl... UD PRN PO 07/18/17 20:30 08/17/17 20:29 Dextrose (Dextrose 50% 50ML Syringe) 25-50ML OF 50% DW IV FOR... UD PRN IV 07/18/17 20:30 08/17/17 20:29 Glucagon (Glucagon Inj) 1 mg UD PRN SQ 07/18/17 20:30 08/17/17 20:29 Amitriptyline HCl (Elavil Tab) 75 mg HS PO 07/18/17 21:00 08/17/17 20:59 07/19/17 20:27 75 MG Aspirin (Ecotrin Tab) 81 mg HS PO 07/18/17 21:00 08/17/17 20:59 Future Hold 07/18/17 21:32 81 MG Cyanocobalamin (Vitamin B-12 Tab) 1,000 mcg DAILY PO 07/19/17 09:00 08/18/17 08:59 07/20/17 08:24 1,000 MCG Nitroglycerin (Nitrostat Tab) 0.4 mg UD PRN SL 07/19/17 04:15 08/18/17 04:14 07/19/17 04:15 0.4 MG Morphine Sulfate (MoRPHine SULFATE INJ) 2 mg Q30M PRN IV 07/19/17 04:15 08/02/17 04:14 07/19/17 06:15 2 MG Ciprofloxacin/ Dextrose 400 mg/ Prmx 200 ml @ 100 mls/hr Q12 IV 07/19/17 09:00 07/29/17 08:59 07/20/17 08:24 100 MLS/HR Insulin Glargine (Lantus Solostar Pen) 11 units QAM SQ 07/20/17 09:00 08/19/17 08:59 07/20/17 08:25 11 UNITS Lactated Ringer's 1,000 ml @ 100 mls/hr Q10H IV 07/19/17 09:00 08/18/17 08:59 07/20/17 05:55 100 MLS/HR Ioversol (Optiray 320) 100 ml UD PRN IV 07/19/17 14:45 07/23/17 14:44 Insulin Human NPH (novoLIN-N NPH) 15 units HS SQ 07/19/17 21:00 08/17/17 21:59 07/19/17 20:35 15 UNITS Ioversol (Optiray 320) 100 ml UD PRN IV 07/20/17 08:00 07/24/17 07:59 Review of Systems Constitutional: No fever, No chills, No fatigue Cardiovascular: No chest pain Abdomen: No pain, No nausea, No vomiting, No diarrhea, No constipation Physical Exam Date Time Temp Pulse Resp B/P (MAP) Pulse Ox O2 Delivery O2 Flow Rate FiO2 07/20/17 16:00 Room Air 07/20/17 15:23 36.8 75 18 153/91 (111) 90 Room Air 07/20/17 12:50 36.7 72 20 153/80 (104) 91 Room Air 07/20/17 12:00 Room Air 07/20/17 08:39 36.0 78 18 138/80 (99) 92 Room Air 07/20/17 08:00 Room Air 07/20/17 04:00 Room Air 07/20/17 03:57 37.1 67 18 107/66 (80) 91 07/20/17 00:38 36.8 68 18 112/65 (81) 92 07/20/17 00:00 Room Air 07/19/17 20:00 Room Air 07/19/17 19:57 36.6 75 18 143/76 (98) 90 Room Air General Appearance: WD/WN, no apparent distress Head: normocephalic, atraumatic Eyes: normal inspection Respiratory/Chest: no respiratory distress, no accessory muscle use Abdomen/GI: non tender, soft Skin: normal color, warm/dry Laboratory Results Last 24 Hours Test 07/19/17 17:40 07/19/17 20:14 07/20/17 05:41 07/20/17 06:55 Bedside Glucose 105 mg/dl 129 mg/dl 134 mg/dl White Blood Count 9.25 K/uL Red Blood Count 4.64 M/uL Hemoglobin 14.3 g/dL Hematocrit 41.1 % Mean Corpuscular Volume 88.6 fL Mean Corpuscular Hemoglobin 30.8 pg Mean Corpuscular Hemoglobin Concent 34.8 g/dl Platelet Count 202 K/uL Mean Platelet Volume 9.8 fL Neutrophils (%) (Auto) 50.1 % Lymphocytes (%) (Auto) 37.9 % Monocytes (%) (Auto) 7.4 % Eosinophils (%) (Auto) 4.1 % Basophils (%) (Auto) 0.3 % Neutrophils # (Auto) 4.63 K/uL Lymphocytes # (Auto) 3.51 K/uL Monocytes # (Auto) 0.68 K/uL Eosinophils # (Auto) 0.38 K/uL Basophils # (Auto) 0.03 K/uL RDW Standard Deviation 42.5 fL RDW Coefficient of Variation 13.2 % Immature Granulocyte % (Auto) 0.2 % Immature Granulocyte # (Auto) 0.02 K/uL Sodium Level 136 mmol/L Potassium Level 4.0 mmol/L Chloride Level 106 mmol/L Carbon Dioxide Level 26 mmol/L Anion Gap 4.0 mmol/L Blood Urea Nitrogen 11 mg/dl Creatinine 1.05 mg/dl Est Creatinine Clear Calc Drug Dose 92.7 ml/min Estimated GFR () 89.0 Estimated GFR (Non- 76.8 BUN/Creatinine Ratio 10.0 Random Glucose 122 mg/dl Calcium Level 9.2 mg/dl Phosphorus Level 3.5 mg/dl Magnesium Level 2.0 mg/dl Total Bilirubin 1.0 mg/dl Direct Bilirubin 0.4 mg/dl Aspartate Amino Transf (AST/SGOT) 194 U/L Alanine Aminotransferase (ALT/SGPT) 527 U/L Alkaline Phosphatase 141 U/L Total Protein 7.3 gm/dl Albumin 3.6 gm/dl Test 07/20/17 11:33 07/20/17 16:27 Bedside Glucose 177 mg/dl 128 mg/dl Ultrasound of Abdomen: IMPRESSION 1. Abnormal study with intra and extrahepatic biliary ductal dilatation 2. Distended sludge-filled gallbladder with pericholecystic fluid and a positive sonographic Hernandez sign 3. Indeterminate complex mass/fluid collection within the kem hepatis containing echogenic foci. Calculi within a choledochocyst or markedly distended cystic duct with calculi cannot be excluded. Additional workup is recommended. MRCP IMPRESSION: 1. Lower mediastinal mass at the thoracoabdominal junction measuring 7 cm in diameter 2. 5.2 cm mass at the level kem hepatis 3. 4.3 cm right anterior pericardial mass 4. Common bile duct narrowing, likely extrinsic and secondary to the kem hepatis mass 5. Intrahepatic biliary ductal dilatation 6. Distended gallbladder with mild pericholecystic edema/fluid 7. No evidence of pancreatic mass. No evidence of pancreatic ductal dilatation. 8. Likely diagnostic considerations include lymphoma or metastatic disease. CT of Abdomen and Pelvis with IV and PO contrast. IMPRESSION: 1. A large soft tissue mass surrounding the distal esophagus and extending along the undersurface of the heart. This measures approximately 9.9 x 8.1 cm. There is a similar-appearing anterior pericardial mass and a kem hepatis mass as described above. There are few prominent gastrohepatic and periportal lymph nodes. Therefore, these findings are highly suspicious for a lymphoma. Metastatic disease could also have a similar appearance. 2. Small pericardial effusion. 3. Gallbladder wall thickening with pericholecystic fluid/inflammatory change and a few small gallstones. This is concerning for acute cholecystitis and could be due to compression of the common bile duct/cystic duct from the kem hepatis mass. Assessment & Plan 62-year-old male - Possible Lymphoma with Metastatic Disease, Gen Surg Consult for Possible Cholecystitis. Patient seen and examined with Dr. Osman. Imaging and recent labs reviewed. GI consultation reviewed. At this time, surgical intervention is not required. Agree that patient should receive EUS tomorrow with Dr. Justin. Discussed with patient and patient's - they are in agreement that other medical issues need to be completely worked up at this time. They had no further questions. Please call with questions or concerns.
[2017-07-20 19:34] VITALS: BP 144/80; PULSE 75; TEMP 36.9; O2SAT 91
[2017-07-20] MEDS: AMITRIPTYLINE HCL 50 MG TAB PO SCH (20:28)
[2017-07-20] MEDS: INSULIN HUMAN NPH SQ SCH (20:30)
[2017-07-21] VITALS (7 sets, daily range): BP systolic 129–150; BP diastolic 74–92; PULSE 68–82; TEMP 34.8–36.6; O2SAT 85–95
[2017-07-21] MEDS: LACTATED RINGER'S 1000ML 1,000 ML IV SCH ×2 (01:00→21:14)
[2017-07-21] MEDS: INSULIN ASPART 100 UNITS/ML 3 ML PEN SC SCH ×4 (07:00→21:04)
--- NOTE | 2017-07-21 07:48 | Progress Note ---
Subjective Date of Service: Jul 21, 2017. Subjective this pt is doing well, tolerating after procedure and discussed with . Problem List Medical Problems: (1) Chest pain, precordial Status: Acute (2) Epigastric abdominal pain Status: Acute (3) Transaminitis Status: Acute Review of Systems Constitutional: No fever, No chills, No weakness, No fatigue Respiratory: No cough, No sputum, No wheezing, No shortness of breath Cardiac: No chest pain, No orthopnea, No edema Abdomen: No pain, No nausea, No vomiting, No diarrhea Musculoskeletal: No joint pain, No muscle pain Male : No dysuria, No urinary frequency, No incontinence Objective Vital Signs Date Time Temp Pulse Resp B/P (MAP) Pulse Ox O2 Delivery O2 Flow Rate FiO2 07/21/17 04:00 Room Air 07/21/17 03:44 36.5 71 16 129/74 (92) 91 Room Air 07/21/17 00:39 36.6 68 16 130/78 (95) 91 07/21/17 00:00 Room Air 07/20/17 20:00 Room Air 07/20/17 19:34 36.9 75 18 144/80 (101) 91 Room Air 07/20/17 16:00 Room Air 07/20/17 15:23 36.8 75 18 153/91 (111) 90 Room Air 07/20/17 12:50 36.7 72 20 153/80 (104) 91 Room Air 07/20/17 12:00 Room Air 07/20/17 08:39 36.0 78 18 138/80 (99) 92 Room Air 07/20/17 08:00 Room Air Physical Exam General Appearance: WD/WN, no apparent distress Neck: supple, no JVD Respiratory/Chest: chest non-tender, lungs clear, normal breath sounds Cardiovascular: regular rate, rhythm, no murmur Abdomen: normal bowel sounds, non tender, soft Extremities: no pedal edema, no calf tenderness Neurologic/Psychiatric: alert, oriented x 3 Laboratory Results Last 24 Hours Test 07/20/17 11:33 07/20/17 16:27 07/20/17 19:48 07/21/17 06:49 Bedside Glucose 177 mg/dl 128 mg/dl 168 mg/dl 136 mg/dl Assessment and Plan 62 year old male with admitted on July 18, 2017 because of rising bilirubin and transaminases, found to have distal esophageal and pericardial mass with some concern for mass in the kem hepatis also, awaiting tissue diagnosis Chest pain upon admission, there was no EKG changes, cardiac enzymes troponin negative 3, believe is atypical chest pain which is from Masses identified on CT chest, stress echo without concern 07/21 Possible lymphoma with Hilar mass/ mediastinal mass vs the mass form the GB infundibulum/CHD, Endocardial/distal esophageal soft tissue lesion. Differential will be malignancy lymphoma or esophageal, possibly cholangiocarcinoma Possible cholecystitis,Elevated liver transaminases. MRCP, abdominal CT and chest CT results see in the above plan for EUS with FNA with flow cytometry continue current antibiotics Consult surgeons to consider recommendation above possible cholecystitis History of diabetes with polyneuropathy, tobacco abuse, hypertension, hyperlipidemia, obesity, obstructive sleep apnea, and a pulmonary nodule: continue outpatient medicines His consult to quit smoking offered help Continued [facility] stay due to: multiple IV medications needed Discharge planning: home
[2017-07-21] MEDS: CIPROFLOXACIN / D5W 400 MG in PREMIXED IN D5W 200 ML IV SCH (08:14)
[2017-07-21] MEDS: INSULIN GLARGINE SOLOSTAR 100 UNITS/ML 3 ML PEN SQ SCH (09:29)
--- NOTE | 2017-07-21 10:28 | Hematology/Oncology Prog Note ---
Hematology/Onc Progress Note Date of Service Jul 21, 2017. Diagnoses Mediastinal mass Medications Medications Administered Medications (Trade) Dose Ordered Sig/Tia Route Start Time Stop Time Status Last Admin Dose Admin Nitroglycerin (Nitrostat Tab) 0.4 mg Q5M PRN SL 07/18/17 13:45 07/18/17 21:13 DC 07/18/17 14:01 0.4 MG Aspirin (Aspirin Chew) 324 mg NOW STAT PO 07/18/17 13:36 07/18/17 13:37 DC 07/18/17 13:48 324 MG Morphine Sulfate (MoRPHine SULFATE INJ) 4 mg NOW STAT IV 07/18/17 14:21 07/18/17 14:22 DC 07/18/17 14:55 4 MG Enoxaparin Sodium (Lovenox Inj) 40 mg Q24H SC 07/18/17 18:00 08/17/17 17:59 07/20/17 17:32 40 MG Al Hydrox/Mg Hydrox/Simethicone (Maalox Max Susp) 15 ml Q4H PRN PO 07/18/17 16:00 08/17/17 15:59 07/19/17 04:15 15 ML Insulin Aspart (novoLOG ASPART) SLIDING SCALE G... ACHS SC 07/18/17 21:00 08/17/17 20:59 07/20/17 20:31 1 UNITS Amitriptyline HCl (Elavil Tab) 75 mg HS PO 07/18/17 21:00 08/17/17 20:59 07/20/17 20:28 75 MG Aspirin (Ecotrin Tab) 81 mg HS PO 07/18/17 21:00 08/17/17 20:59 Future Hold 07/18/17 21:32 81 MG Cyanocobalamin (Vitamin B-12 Tab) 1,000 mcg DAILY PO 07/19/17 09:00 08/18/17 08:59 07/20/17 08:24 1,000 MCG Insulin Glargine (Lantus Solostar Pen) 22 units QAM SQ 07/19/17 09:00 07/19/17 09:00 DC 07/19/17 07:55 22 UNITS Insulin Human NPH (novoLIN-N NPH) 30 units HS SQ 07/18/17 22:00 07/19/17 16:54 DC 07/18/17 23:09 30 UNITS Nitroglycerin (Nitrostat Tab) 0.4 mg UD PRN SL 07/19/17 04:15 08/18/17 04:14 07/19/17 04:15 0.4 MG Morphine Sulfate (MoRPHine SULFATE INJ) 2 mg Q30M PRN IV 07/19/17 04:15 08/02/17 04:14 07/19/17 06:15 2 MG Ciprofloxacin/ Dextrose 400 mg/ Prmx 200 ml @ 100 mls/hr Q12 IV 07/19/17 09:00 07/29/17 08:59 07/21/17 08:14 100 MLS/HR Insulin Glargine (Lantus Solostar Pen) 11 units QAM SQ 07/20/17 09:00 08/19/17 08:59 07/21/17 09:29 5 UNITS Lactated Ringer's 1,000 ml @ 100 mls/hr Q10H IV 07/19/17 09:00 08/18/17 08:59 07/21/17 01:00 100 MLS/HR Insulin Human NPH (novoLIN-N NPH) 15 units HS SQ 07/19/17 21:00 08/17/17 21:59 07/20/17 20:30 15 UNITS Subjective He seems to be doing well. He really denies any new pain. He denies dysphagia. He states he is able to swallow most everything. Review of Systems: Constitutional: Negative for night sweats, or fever Eyes: Negative for event change of vision ENT: Negative for epistaxis, nasal discharge, sore throat, or deafness Cardiovascular: Negative for chest pain, palpitations, dizziness, diaphoresis Respiratory: Negative for new shortness of breath,hemoptysis, or purulent cough Gastrointestinal: Negative for diarrhea, hematemesis, melena, nausea, vomiting , or dyspepsia Integumentary (skin): Negative for rash or jaundice discoloration Genitourinary: Negative for urinary frequency, hematuria, or dysuria Neurological: Negative for weakness, seizure activity, headache, or dizziness Lymphatic/Hematologic: Negative for petechiae, bleeding or new adenopathy Musculoskeletal: Negative for new joint or back pain Allergic/Immunologic: Negative for unusual rash or pruritis. Vital Signs Vital Signs Past 12 Hours Date Time Temp Pulse Resp B/P (MAP) Pulse Ox O2 Delivery O2 Flow Rate FiO2 07/21/17 08:18 36.3 81 18 138/79 (98) 91 Room Air 07/21/17 04:00 Room Air 07/21/17 03:44 36.5 71 16 129/74 (92) 91 Room Air 07/21/17 00:39 36.6 68 16 130/78 (95) 91 07/21/17 00:00 Room Air Physical Exam Constitutional: vitals are stable. Eyes: Eyes are AUGUSTIN EOMI without conjuctival erythema or icterus. ENT: External examination was negative for masses. Neck: Negative for masses or palpable thyromegaly Respiratory: Lung sounds were generally clear bilaterally Cardiovascular: Heart was RRR without significant murmur, gallops aoe rubs Gastrointestinal: No palpable hepatic or splenomegaly. The abdomen was soft with normal bowel sounds. Lymphatic system: there was no palpable peripheral lymphadenopathy Musculoskeletal System: The musculoskeletal system seemed concordant with age. Skin: The skin was negative for jaundice. Neurologic exam: The exam was negative for any focal findings. Deep tendon reflexes were equal and symmetrical. Psychiatric exam: Was essentially negative with normal mood and effect. Extremities: negative for edema Laboratory Last 24 Hours Test 07/20/17 11:33 07/20/17 16:27 07/20/17 19:48 07/21/17 06:49 Bedside Glucose 177 mg/dl 128 mg/dl 168 mg/dl 136 mg/dl Assessment & Plan I understand an EUS is being planned today and hopefully we will get some tissue. Scans were reviewed and the radiologist feels that the findings are most consistent with perhaps an lymphoproliferative process. We will of course await for the results of the biopsy. His scans were reviewed at bedside with him today.
[2017-07-21] MEDS ORDERED: SODIUM CHLORIDE 0.9% 500ML 500 ML IV ONE (13:10)
--- NOTE | 2017-07-21 13:11 | History & Physical Bridge Note ---
H&P Re-Evaluation Bridge Note: I have examined the patient, reviewed the History & Physical and in the interval since the performance of the History & Physical I have noted the following changes of clinical significance: No changes noted
--- NOTE | 2017-07-21 13:32 | EXERCISE STRESS ECHO ---
*NOTICE TO RECEIVING DEMOCRAT AGENCY This information is strictly Confidential and protected under [place] law. [place] law prohibits you from making any further disclosure of this information unless further disclosure is expressly permitted by the written consent of the person to whom it pertains or is authorized by law. A general authorization for the release of medical or other information is not sufficient for this purpose. Hospital accepts no responsibility if the information is made available to any other person, INCLUDING THE PATIENT. Interpretation Summary * Name: PETTY GANNON Study Date: 07/21/2017 10:43 AM BP: 124/82 mmHg * Patient Location: C.2T\S\S231\S\1 HR: 77 * : 1955 (M/d/yyyy) Gender: Male Height: 69 in * Age: 62 yrs Ethnicity: [place] Weight: 248 lb * Ordering Physician: Patrick Sheriff * Referring Physician: Self, Referred * Performed By: Annmarie Weathers RCS * * Reason For Study: Chest Pain * BSA: 2.3 m2 * -- Conclusions -- * Stress Echo: * 1. Negative stress echo for ischemia at 88 % MPHR. * 2. Negative exercise ECG for ischemia at 88 % MPHR. * 3. Hypertensive blood pressure response to exercise. * 4. No arrhythmia. * 5. Study terminated due to fatigue. No chest pain reported. * 6. Poor exercise tolerance. * 7. Technically difficult study, enhanced with IV Definity. Procedure Details * ECHOEX, CPT #13916 * A contrast injection of Definity was performed to improve assessment of LV function. * Contrast was injected into an intravenous site in the right arm. * One vial of Definity ultrasound contrast was diluted in normal saline to a total volume of 10 ml. A total of '2' ml of solution was administered during imaging. * Lot # [id number] of Definity utilized for procedure. * Expiration date 1APR19. * The attending nurse who injected the contrast agent was Altagracia Farrell RN. Left Ventricle * The left ventricle is normal in size. * Left ventricular systolic function is normal. * The left ventricular ejection fraction increases normally with stress. The left ventricular end-systolic cavity size reduces post-stress (normal response). The left ventricular wall motion with stress is normal. * Resting wall motion: Normal. Stress wall motion: Appropriate increase in Left ventricular systolic function and decrease in cavity size. No stress induced segmental wall motion abnormalities. Stress Parameters * Sinus rhythm at 77 bpm. * Stress ECG: No ST changes. No arrhythmias. * No arrhythmia were noted with stress. * Rest heart rate was '77' BPM. * Rest blood pressure was '124/82' * Maximum heart rate achieved was 142 bpm. * Maximum heart rate was 88 % of maximum age-predicted heart rate. * Maximum blood pressure was '203/79' * Total exercise time was '3.53' * Maximum exercise MET level achieved was '5.6' METS * Maximum treadmill speed was '2.5' miles per hour. * Maximum treadmill elevation was '12'% grade. * Exercise was terminated due to 'fatigue after achieving target heart rate' * Normal blood pressure response to exercise.
[2017-07-21] MEDS ORDERED: ONDANSETRON INJ 2 MG/ML 2 ML VIAL ONE (13:52)
[2017-07-21] MEDS ORDERED: NEOSTIGMINE METHYLSULFATE 5 MG/5 ML SYR ONE (13:52)
[2017-07-21] MEDS ORDERED: LARYING-O-JET KIT (LTA) ONE (13:52)
[2017-07-21] MEDS ORDERED: ROCURONIUM BROMIDE 10 MG/ML 5 ML VIAL IV ONE (13:52)
[2017-07-21] MEDS ORDERED: MIDAZOLAM HCL 1 MG/ML 2ML VIAL ONE (13:52)
[2017-07-21] MEDS ORDERED: SUCCINYLCHOLINE CHLORIDE 20 MG/ML 10 ML VIAL IV ONE (13:52)
[2017-07-21] MEDS ORDERED: GLYCOPYRROLATE INJ 0.2 MG/ML VIAL ONE (13:52)
[2017-07-21] MEDS ORDERED: PROPOFOL IV EMULSION 10 MG/ML 20 ML VIAL IV ONE (13:52)
[2017-07-21] MEDS ORDERED: DEXAMETHASONE SOD INJ 4 MG/ML VIAL ONE (13:52)
[2017-07-21] MEDS ORDERED: FENTANYL CITRATE INJ 50 MCG/1 ML 2 ML VIAL ONE (13:52)
[2017-07-21] MEDS ORDERED: LIDOCAINE HCL 2% 2 ML VIAL (20MG/ML) ONE (13:52)
[2017-07-21] MEDS ORDERED: PERFLUTREN LIPID MICROSPHERE (DEFINITY) IV ONE (14:06)
[2017-07-21] MEDS ORDERED: EpHEDrine SULFATE INJ 50 MG/ML AMP IV PRN (15:15)
[2017-07-21] MEDS ORDERED: ATROPINE SULFATE 0.1 MG/ML 5ML SYR IV PRN (15:15)
[2017-07-21] MEDS ORDERED: HYDROmorphone INJ 0.5 MG/0.5 ML SYR IV PRN (15:15)
[2017-07-21] MEDS ORDERED: LABETALOL HCL IV 5 MG/ML 20ML IV PRN (15:15)
[2017-07-21] MEDS ORDERED: PHENYLEPHRINE 100MCG/ML 5ML SYR IV PRN (15:15)
[2017-07-21] MEDS ORDERED: ONDANSETRON INJ 2 MG/ML 2 ML VIAL IV PRN (15:15)
[2017-07-21] MEDS ORDERED: PROMETHAZINE HCL INJ 12.5 MG in SODIUM CHLORIDE 0.9% 50ML 50 ML IV PRN (15:15)
[2017-07-21] MEDS ORDERED: FENTANYL CITRATE INJ 50 MCG/1 ML 2 ML VIAL IV PRN (15:15)
[2017-07-21] MEDS ORDERED: CIPROFLOXACIN 400MG / 200ML D5W IV STA (16:07)
[2017-07-21] MEDS ORDERED: CIPROFLOXACIN 400MG / 200ML D5W ONE (16:09)
--- NOTE | 2017-07-21 16:48 | [facility] Post Operative Brief Note ---
Immediate Operative Summary Operative Date Jul 21, 2017. Pre-Operative Diagnosis Abnormal liver tests; Abnormal imaging Post-Operative Diagnosis Abnormal liver tests; Abnormal imaging Gastritis, Fatty Liver, Lymph node sample Procedure(s) Performed Upper Gastrointestinal Endoscopy, Endoscopic Ultrasound with fine needle aspiration of kem hepatis mass and core biopsies, Lymph node sample Surgeon Dr. Saurabh Justin Configuration Management Architect Surgeon(s) None Estimated Blood Loss 0 mL Findings Consistent with Post-Op Diagnosis Specimens All pathology specimens to be labeled and handled as needed by Endoscopy staff and Cytology staff Anesthesia Type General Complication(s) none Disposition Disposition: Recovery Room / PACU
--- NOTE | 2017-07-21 16:59 | GI REPORT ---
Procedure Date: 07/21/2017 3:03 PM Procedure: Upper GI endoscopy Indications: Abnormal CT of the GI tract Medicines: General Anesthesia Complications: No immediate complications. Estimated blood loss: Minimal. Estimated Blood Loss: Estimated blood loss was minimal. Procedure: Pre-Anesthesia Assessment: - Prior to the procedure, a History and Physical was performed, and patient medications and allergies were reviewed. The patient's tolerance of previous anesthesia was also reviewed. The risks and benefits of the procedure and the sedation options and risks were discussed with the patient. All questions were answered, and informed consent was obtained. Prior Anticoagulants: The patient has taken no previous anticoagulant or antiplatelet agents. ASA Grade Assessment: III - A patient with severe systemic disease. After reviewing the risks and benefits, the patient was deemed in satisfactory condition to undergo the procedure. After obtaining informed consent, the endoscope was passed under direct vision. Throughout the procedure, the patient's blood pressure, pulse, and oxygen saturations were monitored continuously. The Scope was introduced through the mouth, and advanced to the second part of duodenum. The upper GI endoscopy was accomplished without difficulty. The patient tolerated the procedure well. Findings: The examined esophagus was normal. Patchy mild inflammation characterized by erosions and erythema was found in the entire examined stomach. Biopsies were taken with a cold forceps for histology. Estimated blood loss was minimal. Verification of patient identification for the specimen was done by the physician and clean room technician using the patient's name and medical record number. Retained gastric contents are not identified on this exam. The examined duodenum was normal. The cardia and gastric fundus were normal on retroflexion. Impression: - Normal esophagus. - Gastritis. Biopsied. - Normal examined duodenum. Recommendation: - Return patient to hospital art for ongoing care. - Perform an upper endoscopic ultrasound (UEUS) today. - Await pathology results. - Clear liquid diet today. - Cipro (ciprofloxacin) 500 mg PO BID for 3 weeks. MD Saurabh Fuentes MD 07/21/2017 4:58:24 PM This report has been signed electronically. Note Initiated On: 07/21/2017 3:03 PM I attest to the content of the Intraoperative Record and orders documented therein, exceptions below
--- NOTE | 2017-07-21 17:28 | GASTROENTEROLOGY PROGRESS NOTE ---
DATE: 07/21/2017 This is an inpatient gastroenterology progress note update. Chart reviewed and the patient examined. The patient underwent EUS and EGD today for abnormal findings on CT scan. In addition, the patient had abnormal liver tests on initial presentation with total and direct bilirubin of 1.7 and 1.1, AST 897, ALT 915, alkaline phosphatase 158. Over the subsequent days, the patient had an elevated GGT of 2028 with transaminases eventually slowly trending downward with yesterday's labs showing alkaline phosphatase down to 141, ALT 527, AST 194, total and direct of 1 and 0.4. EGD revealed a mild pattern of diffuse patchy gastritis; otherwise without any mucosal masses, evidence of obstruction or retained gastric contents. This was to the second portion of the duodenum. EUS revealed an approximate 11 x 6 mm lymph node at 36 cm from the incisors at the distal esophagus. This underwent FNA and final cytology is pending, although may represent a benign lymph node. Liver has a fatty appearance and there was a questionable soft tissue density mass in the vicinity of the kem hepatis that was adjacent to the bile duct, although this does not demonstrate good echogenic features. The mass is described in the distal esophageal region, kem hepatis region are not well identified by this technique. There was one questionable area in the kem hepatis and this one underwent FNA and results are pending at this time. Bile duct was approximately 7 mm by ultrasound, although in the one area there may be a slight narrowing adjacent to what may represent a soft tissue mass that has poor echo quality. These lesions may not be amenable to ultrasound detection as these are better seen on CT imaging, perhaps a CT guided biopsy of these lesions may yield better samples. We will await the results of FNA. The patient was given Cipro 400 mg during the procedure as an FNA was performed and will continue 500 mg twice daily for 3 days. The patient can advance his diet to clears this evening and can further advance later tonight if feeling well. Further recommendations once the gastric mucosal biopsies and FNAs are known. Would follow LFTs tomorrow to see if there is an ongoing resolution of these. The gallbladder itself may contain a fair amount of sludge that occasionally had bright tiny particles that may reflect a small sludge or microcrystals. At some point, consideration for cholecystectomy may be needed. MTDD
--- NOTE | 2017-07-21 17:28 | Anesthesiology Progress Note ---
Anesthesia Post Op Note Date & Time Jul 21, 2017 at 17:28 Vital Signs Pain Intensity: 0 Vital Signs Past 12 Hours Date Time Temp Pulse Resp B/P (MAP) Pulse Ox O2 Delivery O2 Flow Rate FiO2 07/21/17 17:07 36.4 73 18 133/82 (89) 95 Nasal Cannula 2 Oxymask 07/21/17 17:06 130/77 07/21/17 17:06 130/77 07/21/17 17:05 76 16 91 07/21/17 17:05 76 16 91 07/21/17 17:05 76 16 07/21/17 17:05 76 16 07/21/17 17:01 123/77 07/21/17 17:01 123/77 07/21/17 17:00 78 14 07/21/17 17:00 78 14 07/21/17 17:00 79 14 92 07/21/17 17:00 79 14 92 07/21/17 16:56 127/79 07/21/17 16:56 127/79 07/21/17 16:55 78 12 96 07/21/17 16:55 78 12 07/21/17 16:55 78 12 96 07/21/17 16:55 78 12 07/21/17 16:54 77 14 07/21/17 16:54 76 14 95 07/21/17 16:51 129/79 07/21/17 16:49 80 17 97 07/21/17 16:49 81 17 07/21/17 16:46 127/71 07/21/17 16:44 77 17 98 07/21/17 16:44 78 17 07/21/17 16:41 138/67 07/21/17 16:40 130/80 07/21/17 16:39 36.2 74 16 130/80 (114) 97 Oxymask 10 07/21/17 16:39 76 14 96 07/21/17 16:39 76 14 07/21/17 12:00 Room Air 07/21/17 08:18 36.3 81 18 138/79 (98) 91 Room Air 07/21/17 08:00 Room Air Notes Mental Status: alert / awake / arousable, participated in evaluation Pt Amnestic to Procedure: Yes Nausea / Vomiting: adequately controlled Pain: adequately controlled Airway Patency, RR, SpO2: stable & adequate BP & HR: stable & adequate Hydration State: stable & adequate Anesthetic Complications: no major complications apparent
--- NOTE | 2017-07-21 17:35 | GI REPORT ---
Procedure Date: 07/21/2017 2:36 PM Procedure: Upper EUS Indications: Suspected mass in esophagus on CT scan, Suspected mass in liver on CT scan, Abnormal abdominal/pelvic CT scan Medicines: General Anesthesia Complications: No immediate complications. Estimated blood loss: Minimal. Estimated Blood Loss: Estimated blood loss was minimal. Procedure: Pre-Anesthesia Assessment: - Prior to the procedure, a History and Physical was performed, and patient medications and allergies were reviewed. The patient's tolerance of previous anesthesia was also reviewed. The risks and benefits of the procedure and the sedation options and risks were discussed with the patient. All questions were answered, and informed consent was obtained. Prior Anticoagulants: The patient has taken no previous anticoagulant or antiplatelet agents. ASA Grade Assessment: III - A patient with severe systemic disease. After reviewing the risks and benefits, the patient was deemed in satisfactory condition to undergo the procedure. After obtaining informed consent, the endoscope was passed under direct vision. Throughout the procedure, the patient's blood pressure, pulse, and oxygen saturations were monitored continuously. The scope was introduced through the mouth, and advanced to the duodenum for ultrasound examination from the esophagus, stomach and duodenum. The upper EUS was accomplished without difficulty. The patient tolerated the procedure well. The patient tolerated the procedure well. Findings: Endosonographic Finding : The esophagus, stomach and duodenum and adjacent structures were visualized endosonographically. There was no sign of significant endosonographic abnormality in the esophagus. There was no sign of significant endosonographic abnormality in the area of major papilla, within the duodenum and in the examined duodenum. No pathologic lymphadenopathy and no masses were identified. There was no sign of significant endosonographic abnormality in the ampulla. No pathologic lymphadenopathy was identified. Moderate hyperechoic material consistent with sludge was visualized endosonographically in the gallbladder. There was diffuse abnormal echotexture in the visualized portion of the liver. This was characterized by a heterogenous appearance and a hyperechoic appearance. There was no sign of significant endosonographic abnormality in the pancreatic head, pancreatic body and pancreatic tail. The pancreatic duct measured up to 2 mm in diameter. The pancreas was well visualized, no masses, no cysts. One abnormal lymph node was visualized in the lower paraesophageal mediastinum (level 8L) with the ultrasound probe located 36 cm from the incisors. It measured 11 mm by 6 mm in maximal cross-sectional diameter. The node was oval, hypoechoic and heterogenous and had well defined margins. Fine needle aspiration for cytology was performed. Color Doppler imaging was utilized prior to needle puncture to confirm a lack of significant vascular structures within the needle path. Three passes were made with the 22 gauge needle using a transesophageal approach. A stylet was used. A personnel quality assurance auditor was present to evaluate the adequacy of the specimen. The cellularity of the specimen was adequate. Final cytology results are pending. Estimated blood loss was minimal. A single irregularly shaped lesion was found in the portahepatis region. This lesion was hypoechoic and hyperechoic. Fine needle aspiration for cytology was performed. Color Doppler imaging was utilized prior to needle puncture to confirm a lack of significant vascular structures within the needle path. Two passes were made with the 22 gauge needle using a transduodenal approach. A stylet was used. A pen tester was present and performed a preliminary cytologic examination. The cellularity of the specimen was adequate. Final cytology results are pending. No other lymph nodes are dectetd during this exam. Impression: - There was no sign of significant pathology in the esophagus. - Normal stomach. - There was no sign of significant pathology in the area of major papilla, within the duodenum and in the examined duodenum. - There was no sign of significant pathology in the ampulla. - Hyperechoic material consistent with sludge was visualized endosonographically in the gallbladder. - There was diffuse abnormal echotexture in the visualized portion of the liver. This was characterized by a heterogenous appearance and a hyperechoic appearance. - There was no sign of significant pathology in the pancreatic head, pancreatic body and pancreatic tail. - One abnormal lymph node was visualized in the lower paraesophageal mediastinum (level 8L) at 36 cm. Fine needle aspiration performed. - A single hypoechoic, hyperechoic density was found in the port hepatitis region adjacent to bile duct. Fine needle aspiration performed. Recommendation: - Return patient to hospital art for ongoing care. - Clear liquid diet today. - Continue present medications. - Await cytology results and await path results. - Follow LFTs for trend. Await cytology, if unrvealing , CT guided bx may be a better choice as these sizable lesions are not well detected by US technique. MD Saurabh Fuentes MD 07/21/2017 5:34:56 PM This report has been signed electronically. Note Initiated On: 07/21/2017 2:36 PM I attest to the content of the Intraoperative Record and orders documented therein, exceptions below
[2017-07-21] MEDS: CYANOCOBALAMIN 500 MCG TAB (VIT B-12) PO SCH (17:55)
[2017-07-21] MEDS: ENOXAPARIN 40 MG/0.4 ML SYR SC SCH (17:55)
[2017-07-21] MEDS: INSULIN HUMAN NPH SQ SCH (21:04)
[2017-07-21] MEDS: CIPROFLOXACIN 500 MG TAB PO SCH (21:05)
[2017-07-21] MEDS: AMITRIPTYLINE HCL 50 MG TAB PO SCH (21:06)
[2017-07-22 00:11] VITALS: BP 119/69; PULSE 73; TEMP 37.1; O2SAT 90
[2017-07-22 04:00] VITALS: BP 125/75; PULSE 78; TEMP 37.1; O2SAT 90
[2017-07-22] MEDS: INSULIN ASPART 100 UNITS/ML 3 ML PEN SC SCH ×2 (07:00→11:57)
[2017-07-22 07:33] VITALS: BP 120/76; PULSE 74; TEMP 37.2; O2SAT 96
--- NOTE | 2017-07-22 07:49 | Anesthesiology Progress Note ---
Anesthesia Post Op Note Date & Time Jul 22, 2017 at 07:49 Vital Signs Pain Intensity: 0.0 Vital Signs Past 12 Hours Date Time Temp Pulse Resp B/P (MAP) Pulse Ox O2 Delivery O2 Flow Rate FiO2 07/22/17 04:00 37.1 78 18 125/75 (92) 90 07/22/17 04:00 Room Air 07/22/17 00:11 37.1 73 18 119/69 (86) 90 Room Air 07/22/17 00:00 Room Air 07/21/17 20:00 Room Air 07/21/17 19:56 34.8 82 18 137/92 (107) 92 Room Air 07/21/17 19:50 36.2 78 16 150/89 (109) 85 Room Air Notes Mental Status: alert / awake / arousable, participated in evaluation Pt Amnestic to Procedure: Yes Nausea / Vomiting: adequately controlled Pain: adequately controlled Airway Patency, RR, SpO2: stable & adequate BP & HR: stable & adequate Hydration State: stable & adequate Anesthetic Complications: no major complications apparent
[2017-07-22] MEDS: CIPROFLOXACIN 500 MG TAB PO SCH (08:18)
[2017-07-22] MEDS: INSULIN GLARGINE SOLOSTAR 100 UNITS/ML 3 ML PEN SQ SCH (08:23)
[2017-07-22] MEDS: CYANOCOBALAMIN 500 MCG TAB (VIT B-12) PO SCH (08:37)
--- NOTE | 2017-07-22 09:31 | Discharge Instructions ---
Discharge Instructions Date of Service Jul 22, 2017. Admission Reason for Admission: Chest Pain Discharge Discharge Diagnosis / Problem: non cardiac chest pain, paraesophageal, pericardial and portahepatis mass Discharge Goals Goal(s): Diagnostic testing, Therapeutic intervention Activity Recommendations Activity Limitations: as noted below Lifting Limitations: gradually increase as tolerated . Current Hospital Diet Patient's current hospital diet: Diabetes Type 2 Diet, Low Fat Diet Discharge Diet Recommended Diet: Regular Diet Procedures Procedures Performed: Upper Gastrointestinal Endoscopy, Endoscopic Ultrasound with fine needle aspiration of kem hepatis mass and core biopsies, Lymph node sample Pending Studies Studies pending at discharge: yes List of pending studies: final pathology report Laboratory Results Hemoglobin A1c Test 06/10/17 07:11 Range/Units Estimated Average Glucose 235 mg/dl Hemoglobin A1c 9.8 H 4.5-5.6 % Lipid Panel Test 07/19/17 03:49 Range/Units Triglycerides Level 233 H 0-150 mg/dl Cholesterol Level 120 0-200 mg/dl HDL Cholesterol 26 mg/dl Cholesterol/HDL Ratio 4.6 LDL Cholesterol, Calculated 47 mg/dl Medical Emergencies . Who to Call and When: Medical Emergencies: If at any time you feel your situation is an emergency, please call 911 immediately. . Non-Emergent Contact Non-Emergency issues call your: Primary Care Provider Call Non-Emergent contact if: temperature is above 101, your pain is unusual for you . . "Provider Documentation" section prepared by Joselo Leyva. .
[2017-07-22 09:39] VITALS: BP 120/76; PULSE 74; TEMP 37.2; O2SAT 96
[2017-07-22 10:35] VITALS: BP 144/76; PULSE 74; TEMP 36.6; O2SAT 97
[2017-07-22 12:59] LABS: ALBUMIN 3.9 gm/dl (3.4-5.0); TOTAL PROTEIN 7.6 gm/dl (6.4-8.2)
--- NOTE | 2017-07-22 14:37 | SURGICAL CONSULTATION ---
DATE OF CONSULTATION: 07/22/2017 REASON FOR CONSULTATION: Chest masses. HISTORY OF PRESENT ILLNESS: This is a 62-year-old outwardly healthy male, who has a history of cigarette smoking for many years. He has a long history of cigarette smoking, started smoking at 17, smoked up until the time he came into the hospital. For the last 45 years, he has been averaged 1-2 packs per day. He developed atypical chest pain on 07/18/2017 with radiation down his left arm and presented for rule out [facility]. He has been to multiple studies and his heart appears to be stable. He does not have evidence of ischemia. A CTA was obtained compared to a screening CAT scan done in December 2016. The patient has a mass anteriorly adjacent to his pericardium behind the sternum. It is on the right side. This is well-delineated and does not appear to be growing into anything. He also has a mass around his distal esophagus. This was not well-seen on the screening CT because there was no contrast use. It was seen much better on the CTA which was done on this admission. The patient has absolutely no signs of any systemic disease. His weight has been stable. He has no night sweats. He has no pain other than that described in history of present illness and that is now resolved. He has no joint pain. 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 Denies shortness of breath or cough. In short, he looks quite good. In comparing these two scans, it could be seen that he does have a small pericardial effusion that appeared to be the same. This mass encircling his distal esophagus is very similar. His transaminases are elevated, however, it appears this process may be occluding his cystic duct. PAST MEDICAL HISTORY: 1. Obesity. 2. History of cigarette smoking. 3. Hyperlipidemia. 4. Hypertension. 5. Adult onset diabetes mellitus. PAST SURGICAL HISTORY: Endoscopic ultrasound with biopsy. MEDICATIONS (AT HOME): 1. Elavil. 2. Aspirin. 3. Metformin. 4. Lipitor. 5. Zestril. 6. Victoza. 7. Vitamin B12. 8. Insulin Glargine. 9. NPH insulin. ALLERGIES: No known drug allergies. 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 Smokes about a pack of cigarettes a day. He lives with his of many years. He has children and grandchildren in the area and he is quite involved with them. He is independent in his activities of daily living. FAMILY MEDICAL HISTORY: The patient's mother and father are still alive. Mother had leukemia, treated many years ago, still living in her late 70s. Father in his early 80s. His siblings, children, and grandchildren are all healthy. REVIEW OF SYSTEMS: The patient's weight has been stable. He has had no night sweats. He has had no chills. He has no dysphagia. He has no nausea, vomiting, or diarrhea. He did have chest pain as described in history of present illness, this is resolved. He has no palpitations. He denies any visual or auditory symptoms. He has had no skin breakdown or rashes. He denies any neurologic events such as amaurosis fugax, transient ischemic attack, or seizures. He denies peripheral edema. He has no dyspnea on exertion. PHYSICAL EXAMINATION: GENERAL: This is a 5 feet 9 inch, 243 pound male, who is awake, alert, and oriented. HEENT: His extraocular movements are intact. Pupils are equal, round, and reactive. Sclerae are anicteric. Teeth are in fairly good repair. He has no nasolabial flattening. Tongue is midline. NECK: I palpated his axillary, supraclavicular, and cervical areas quite well. I did not detect any significant adenopathy. LUNGS: His lungs are grossly clear. HEART: He has a regular rate and rhythm of his heart. ABDOMEN: His abdomen is a bit distended, but nontender. He has no ascites or hepatosplenomegaly. I do not palpate any right upper epigastric masses. EXTREMITIES: He has excellent peripheral pulses. He has no joint effusions. NEUROLOGIC: He is awake, alert, and oriented. He has no focal deficits. ASSESSMENT AND PLAN: 1. Process involving the distal esophagus and kem hepatis area. 2. Process involving the anterior pericardial area on the right. We discussed this at our multidisciplinary cancer conference today. These are both solid masses. This is not a pericardial cyst. More than likely, we are dealing with a lymphoma. We had a long discussion, we elected to proceed with a right thoracoscopy, biopsy of the paraesophageal as well and excise the mass anterior to the pericardium. This will give us an answer as we are quite suspicious we are dealing with lymphoma despite his lack of symptoms. We will allow the patient to be discharged home today and I will set him up for surgery in the office. Thank you very much. RAMÓN
--- NOTE | 2017-07-22 15:20 | Discharge Summary ---
Discharge Summary Date of Service Jul 22, 2017. Discharge Summary Admission Date: Jul 19, 2017 at 12:43 Discharge Date: Jul 22, 2017 Discharge Disposition: Home Principal Diagnosis: non cardiac chest pain, transaminitis, paraesophageal mass Procedures: Stress echo negative for concern for ACS Consultations: Dr More performed EGD and eus biopsy Medication Reconciliation Continued Medications: Amitriptyline Hcl (Elavil) 75 Mg Tab 75 MG PO HS, TAB Aspirin (Aspirin Ec) 81 Mg Tab 81 MG PO HS Atorvastatin (Lipitor) 40 Mg Tab 40 MG PO HS, TAB Cyanocobalamin (Vitamin B-12) 500 Mcg Tab 1000 MCG PO DAILY, TAB Insulin Glargine (Basaglar Kwikpen) 100 Unit/Ml Inj 22 UNITS PO QAM Insulin Human NPH (Novolin N) 100 Units/Ml Susp 30 UNITS SQ HS increase ud Liraglutide (Victoza) 18 Mg/3 Ml Inj 1.8 MG SQ HS Lisinopril (Zestril) 20 Mg Tab 20 MG PO DAILY, TAB Metformin Hcl (Glucophage) 1,000 Mg Tab 1000 MG PO BID, TAB Discharge Exam Review of Systems: Constitutional: No fever, No chills, No sweats Cardiovascular: No chest pain, No edema Abdomen: No pain, No nausea, No diarrhea Musculoskeletal: No joint pain, No muscle pain Genitourinary - Male: No hematuria, No dysuria Physical Exam: General Appearance: WD/WN, no apparent distress Eyes: normal inspection, sclerae normal Respiratory/Chest: chest non-tender, lungs clear, normal breath sounds Cardiovascular: regular rate, rhythm, no murmur Abdomen / GI: normal bowel sounds, non tender, soft Neurologic/Psychiatric: alert, oriented x 3 Hospital Course 62 year old male with admitted on July 18, 2017 because of rising bilirubin and transaminases, found to have distal esophageal and pericardial mass with some concern for mass in the kem hepatis also, awaiting tissue diagnosis Chest pain upon admission, there was no EKG changes, cardiac enzymes troponin negative 3, believe is atypical chest pain which is from Masses identified on CT chest, stress echo without concern 07/21 Possible lymphoma with Hilar mass/ mediastinal mass vs the mass form the GB infundibulum/CHD, Endocardial/distal esophageal soft tissue lesion. Differential will be malignancy lymphoma or esophageal, possibly cholangiocarcinoma Possible cholecystitis,Elevated liver transaminases. MRCP, abdominal CT and chest CT results plan for EUS with FNA with flow cytometry, pending at time of discharge but preliminary not with confirmed diagnosis History of diabetes with polyneuropathy, tobacco abuse, hypertension, hyperlipidemia, obesity, obstructive sleep apnea, and a pulmonary nodule: continue outpatient medicines His councelled to quit smoking I personally spoke to Dr Almonte and Dr Osman approximately 30 minutes to coordinate further diagnostic workup of the paraesophageal lesions, Dr Osman will coordinate outpt biopsy Total Time Spent: Greater than 30 minutes This includes examination of the patient, discharge planning, medication reconciliation, and communication with other providers. Discharge Instructions Please refer to the electronic Patient Visit Report (Discharge Instructions) for additional information.
== END 2017-07-22 12:43 | disposition home or self-care (01) | DRG 358 ==
LOC: C.EDB 13:08 → C.2T 15:59 → ENRESERV 16:06 → OBSVTOIN 07-19 12:43
PROVIDERS: ADMIT Family Medicine; ATTEND Internal Medicine
PROC: 0FB04ZX Excision of Liver, Percutaneous Endoscopic Approach, Diagnostic (ICD-10-PCS; principal; 2017-07-21 10:00)
PROC: 0DB68ZX Excision of Stomach, Via Natural or Artificial Opening Endoscopic, Diagnostic (ICD-10-PCS; principal; 2017-07-21 10:00)
PROC: 07B74ZX Excision of Thorax Lymphatic, Percutaneous Endoscopic Approach, Diagnostic (ICD-10-PCS; principal; 2017-07-21 10:00)
DX: K22.8 Other specified diseases of esophagus (principal); R16.0 Hepatomegaly, not elsewhere classified; R74.0 Nonspecific elevation of levels of transaminase and lactic acid dehydrogenase [LDH]; E11.40 Type 2 diabetes mellitus with diabetic neuropathy, unspecified; I10 Essential (primary) hypertension; E78.5 Hyperlipidemia, unspecified; E66.9 Obesity, unspecified; F17.200 Nicotine dependence, unspecified, uncomplicated; G47.33 Obstructive sleep apnea (adult) (pediatric); Z79.4 Long term (current) use of insulin; Z79.82 Long term (current) use of aspirin; Z79.84 Long term (current) use of oral hypoglycemic drugs; Z79.899 Other long term (current) drug therapy

== ENCOUNTER 2017-08-08 07:15 | Inpatient (IN) | payer OTHER ==
[2017-08-04 15:29] VITALS: BMI 39.0
[~2017-08-08] VITALS: Ht 170.2 cm; Wt 113.6 kg
[2017-08-08] VITALS (10 sets, daily range): BP systolic 107–126; BP diastolic 57–78; PULSE 65–87; TEMP 36.2–36.9; O2SAT 91–97; Ht 170.2 cm; Wt 113.6 kg
[~2017-08-08 07:15] MED LIST changes: +AMIT75TA2 PO; +ATOR-24 PO; +CYAN500T PO; +INSDGI SC; +LACTATED RINGER'S 1000ML 1,000 ML IV SCH; +LISI-725 PO; +METF-384 PO; +NVLNI SQ
[2017-08-08] MEDS ORDERED: DEXAMETHASONE SOD INJ 4 MG/ML VIAL ONE (08:12)
[2017-08-08] MEDS ORDERED: FENTANYL CITRATE INJ 50 MCG/1 ML 2 ML VIAL ONE (08:12)
[2017-08-08] MEDS ORDERED: GLYCOPYRROLATE INJ 0.2 MG/ML VIAL ONE (08:12)
[2017-08-08] MEDS ORDERED: NEOSTIGMINE METHYLSULFATE 5 MG/5 ML SYR ONE (08:12)
[2017-08-08] MEDS ORDERED: ONDANSETRON INJ 2 MG/ML 2 ML VIAL ONE (08:12)
[2017-08-08] MEDS ORDERED: MIDAZOLAM HCL 1 MG/ML 2ML VIAL ONE (08:12)
[2017-08-08] MEDS ORDERED: LIDOCAINE HCL 2% 2 ML VIAL (20MG/ML) ONE (08:12)
[2017-08-08] MEDS ORDERED: PROPOFOL IV EMULSION 10 MG/ML 20 ML VIAL ONE (08:12)
[2017-08-08] MEDS ORDERED: ROCURONIUM BROMIDE 10 MG/ML 5 ML VIAL ONE (08:12)
[2017-08-08] MEDS ORDERED: ATROPINE SULFATE 0.1 MG/ML 5ML SYR IV PRN (09:00)
[2017-08-08] MEDS ORDERED: EpHEDrine SULFATE INJ 50 MG/ML AMP IV PRN (09:00)
[2017-08-08] MEDS ORDERED: ONDANSETRON INJ 2 MG/ML 2 ML VIAL IV PRN ×2 (09:00→11:45)
[2017-08-08] MEDS ORDERED: FENTANYL CITRATE INJ 50 MCG/1 ML 2 ML VIAL IV PRN (09:00)
[2017-08-08] MEDS ORDERED: BUPIVACAINE LIPOSOME 1/3% 266 MG/20 ML VIAL ONE (09:11)
[2017-08-08] MEDS ORDERED: BUPIVACAINE 0.5 % 5 MG/1 ML MPF 30ML VIAL ONE (09:11)
[2017-08-08] MEDS ORDERED: SODIUM CHLORIDE 0.9% PF 50 ML VIAL ONE ×2 (09:11)
[2017-08-08] MEDS ORDERED: CEFAZOLIN SOD 1 GM VIAL ONE ×2 (10:00→10:04)
--- NOTE | 2017-08-08 11:20 | [facility] Post Operative Brief Note ---
Immediate Operative Summary Operative Date August 08, 2017. Pre-Operative Diagnosis Right Anterior mediastinal masses Distal esophageal and kem hepatis infiltrative mass Post-Operative Diagnosis Same Procedure(s) Performed Right Video Assisted Thoracoscopy with Biopsy of Mediastinal Masses Surgeon Dr Osman Game Agent Surgeon(s) Manny Benítez PA-C Estimated Blood Loss 5ml Findings Consistent with Post-Op Diagnosis Specimens Frozen section #1 mediastinal mass for diagnosis sent out at [address] Osman Frozen section #2 mediastinal tissue sent out at 1107 Frozen section #3 inferior mediastinal tissue sent out at 1117 Anesthesia Type General
[2017-08-08] MEDS ORDERED: METOCLOPRAMIDE HCL INJ 5 MG/ML 2 ML VIAL IV. STA (11:34)
[2017-08-08] MEDS ORDERED: OXYCODONE HCL IR 5 MG TAB (IMMEDIATE RELEASE) PO PRN (11:45)
[2017-08-08] MEDS ORDERED: MoRPHine SULFATE 2 MG/ML CARP IV PRN (11:45)
--- NOTE | 2017-08-08 12:10 | DIAGNOSTIC IMAGING REPORT ---
SINGLE VIEW CHEST CLINICAL HISTORY: Postoperative examination. Status post VATS. FINDINGS: An AP, portable, upright chest radiograph is compared to study dated 07/18/2017. Correlation is made with chest CT dictated 07/20/2017. The examination is degraded by portable technique and apical lordotic positioning. The heart is enlarged and there is atherosclerotic calcification of the thoracic aorta. The pulmonary vasculature is noncongested. Emphysema and chronic interstitial thickening are similar to previous. A chest tube projects over the right apex. There is a trace right apical pneumothorax. Trace pleural fluid is seen at the right lung base. Bibasilar scarring/atelectasis is similar to previous. The skeletal structures are osteopenic. The bony thorax is grossly intact. IMPRESSION: 1. Cardiomegaly and emphysema. 2. A right-sided chest tube is in place. There is a trace right apical pneumothorax. 3. Trace pleural fluid seen at the right lung base, likely on a postoperative basis. Electronically signed by: Shaheen Nelson M.D. 08/08/2017 12:09 PM Dictated Date/Time: 08/08/2017 12:06 PM
--- NOTE | 2017-08-08 13:09 | Anesthesiology Progress Note ---
Anesthesia Post Op Note Date & Time August 08, 2017 at 13:09 Vital Signs Pain Intensity: 1 Vital Signs Past 12 Hours Date Time Temp Pulse Resp B/P (MAP) Pulse Ox O2 Delivery O2 Flow Rate FiO2 08/08/17 12:42 68 95 08/08/17 12:42 68 08/08/17 12:37 72 14 08/08/17 12:37 72 14 95 08/08/17 12:36 115/58 08/08/17 12:32 66 16 93 08/08/17 12:32 66 16 08/08/17 12:31 118/73 08/08/17 12:27 63 16 08/08/17 12:27 62 16 92 08/08/17 12:25 117/63 08/08/17 12:22 63 18 95 08/08/17 12:22 63 18 08/08/17 12:20 113/64 08/08/17 12:17 65 16 94 08/08/17 12:17 66 16 08/08/17 12:16 36.4 112/51 08/08/17 12:15 64 22 08/08/17 12:15 63 22 93 08/08/17 12:11 118/52 08/08/17 12:10 63 18 94 08/08/17 12:10 64 18 08/08/17 12:06 112/44 08/08/17 12:05 69 19 96 08/08/17 12:05 70 19 08/08/17 12:01 113/50 08/08/17 12:00 Nasal Cannula 3 08/08/17 12:00 67 18 98 08/08/17 12:00 67 18 08/08/17 11:55 66 18 08/08/17 11:55 65 18 113/57 99 08/08/17 11:51 112/50 08/08/17 11:50 67 16 08/08/17 11:50 16 08/08/17 11:40 36 71 16 109/57 96 Oxymask 7 08/08/17 07:54 36.6 79 20 123/66 (85) 96 Room Air Notes Mental Status: alert / awake / arousable, participated in evaluation Pt Amnestic to Procedure: Yes Nausea / Vomiting: adequately controlled Pain: adequately controlled Airway Patency, RR, SpO2: stable & adequate BP & HR: stable & adequate Hydration State: stable & adequate Anesthetic Complications: no major complications apparent
[2017-08-08] MEDS ORDERED: GLUCOSE 10 TABS/TUBE PO PRN (13:45)
[2017-08-08] MEDS ORDERED: GLUCOSE 40% GEL 15 GM TUBE PO PRN (13:45)
[2017-08-08] MEDS ORDERED: DEXTROSE 50% 50 ML SYR IV PRN (13:45)
[2017-08-08] MEDS ORDERED: CARBOHYDRATES FOR HYPOGLYCEMIA PO PRN (13:45)
[2017-08-08] MEDS ORDERED: GLUCAGON FOR INJ 1 MG VIAL IM PRN (13:45)
--- NOTE | 2017-08-08 14:15 | OPERATIVE REPORT ---
DATE OF OPERATION: 08/08/2017 PREOPERATIVE DIAGNOSES: Anterior mediastinal mass and infiltrative process of lower thorax and upper abdomen involving the kem hepatis. POSTOPERATIVE DIAGNOSIS: Questionable parathyroid carcinoma. ANESTHESIA: General anesthesia with single lumen intubation. PROCEDURE: Right thoracoscopy with biopsies of both of these masses. SURGEON: Philip Osman MD STAGE ELECTRICIAN: CASTILLO Miles (Mr. Carranza was present for the entire case and was masterful at managing the camera and first assisting. He closed skin incisions at the conclusion of the case.) SPECIFICS OF PROCEDURE: This is a 62-year-old male who had presented with chest pain. A CT scan showed some asymptomatic anterior mediastinal mass and he also had infiltrative process in the lower mediastinum and upper abdomen involving the kem hepatis. We had a long discussion about this. The patient underwent an endoscopic ultrasound with biopsy but we did not get an answer. This was discussed at our multidisciplinary cancer conference and we elected to proceed with a biopsy thoracoscopically. On 08/18/2017 patient underwent uncomplicated biopsy. The frozen section was interesting in that Dr. Watts felt that this represented parathyroid tissue. We will have to wait for immunohistochemical stains. He tolerated it well. PROCEDURE: Patient was brought to the operating room and laid in supine position. General anesthesia induced and endotracheal intubation was performed with a single lumen tube. The patient was turned in the left lateral decubitus position, his right chest prepped and draped in usual sterile fashion. After appropriate timeout, a call had been called and prophylactic antibiotics were given. Three separate ports were made. Two 5 mm ports were made, 1 about the fourth space anteriorly to the latissimus dorsi. Another 5-mm port was placed posteriorly at about the one interspace below the tip of the scapula posteriorly. CO2 was insufflated. We could see there were no adhesions. I then could immediately see this mass, although there was a large amount of pericardial fat around it. This is anterior and I used the Harmonic scalpel rather liberally to remove much of this; however, it was very difficult to grasp because it was so hard. I ended up using the Harmonic scalpel around it multiple times but it came out in pieces. We then put an Endobag and removed several of these pieces into the Endobag and delivered them off the field. Aquamantys was used to control bleeding. It was difficult to get this entire mass out and I removed probably the 3/4 of it. Frozen section came back as possible parathyroid tissue. We did not send all the tissue for frozen. Dr. Watts asked this be sent, he froze it again and again, this looked like parathyroid tissue. Attention was then turned towards the posterior mediastinum, right the diaphragmatic hiatus essentially. There was whitish tissue and I grasped this and removed a good portion of this. There was minimal bleeding with this. It should be noted also that this appeared to be involving the lung also, not in this particular area, but around the inferior pulmonary vein was this whitish hard tissue also. I did not biopsy that. 266 mg of Exparel mixed with 30 mL of 0.5% bupivacaine and 150 mL of normal saline was used to not only block all of the incisions but also did an intercostal block from the 2nd-11th rib. A 20-Moldovan chest tube was directed to the anterior thoracoscopy port and directed towards the apex. It was sutured in place with heavy silk suture. A 4-0 Monocryl was used in running subcuticular fashion to approximate the wound edges of the other 2 thoracostomy incisions. He tolerated it well and was extubated in the room with negligible blood loss. I attest to the content of the Intraoperative Record and any orders documented therein. Any exception s are noted below.
[2017-08-08] MEDS: SODIUM CHLORIDE 0.9% 1000ML 1,000 ML IV SCH (14:21)
[2017-08-08] MEDS: KETOROLAC TROMETHAMINE 15 MG/ML VIAL IV. SCH ×2 (14:21→21:59)
[2017-08-08] MEDS: ACETAMINOPHEN IV 1,000 MG in EMPTY BAG 0 ML IV SCH ×2 (14:21→21:59)
[2017-08-08] MEDS: METOCLOPRAMIDE HCL INJ 5 MG/ML 2 ML VIAL IV. SCH ×2 (14:22→21:58)
[2017-08-08] MEDS: INSULIN ASPART 100 UNITS/ML 3 ML PEN SC SCH ×2 (18:01→20:47)
[2017-08-08] MEDS: DOCUSATE SODIUM 100 MG CAP PO SCH (20:43)
[2017-08-08] MEDS ORDERED: ASPIRIN 81 MG ECTAB PO SCH (21:00)
[2017-08-08] MEDS ORDERED: AMITRIPTYLINE HCL 50 MG TAB PO SCH (21:00)
[2017-08-08] MEDS ORDERED: INSULIN HUMAN NPH SQ SCH (21:00)
[2017-08-08] MEDS ORDERED: ATORVASTATIN 20 MG TAB PO SCH (21:00)
[2017-08-09 00:48] VITALS: BP 119/68; PULSE 77; TEMP 36.4; O2SAT 90
[2017-08-09] MEDS: SODIUM CHLORIDE 0.9% 1000ML 1,000 ML IV SCH (02:25)
[2017-08-09 04:50] VITALS: BP 126/67; PULSE 80; TEMP 36.4; O2SAT 92
[2017-08-09] MEDS: KETOROLAC TROMETHAMINE 15 MG/ML VIAL IV. SCH (05:21)
[2017-08-09] MEDS: METOCLOPRAMIDE HCL INJ 5 MG/ML 2 ML VIAL IV. SCH (05:21)
[2017-08-09] MEDS: ACETAMINOPHEN IV 1,000 MG in EMPTY BAG 0 ML IV SCH (05:22)
--- NOTE | 2017-08-09 07:20 | DIAGNOSTIC IMAGING REPORT ---
CHEST ONE VIEW PORTABLE CLINICAL HISTORY: 62 years-old Male presenting with RVATS. TECHNIQUE: Portable upright AP view of the chest was obtained. COMPARISON: 08/08/2017. FINDINGS: Large bore right pleural drain remains positioned at the right upper lung. Atherosclerosis of the aortic arch. Cardiac silhouette mildly enlarged, unchanged. Pulmonary vasculature prominence has slightly decreased from prior. No focal opacity or large effusion in the right lung. Allowing for portable technique, no residual pneumothorax is apparent. Left lung and pleural space clear. Osseous structures normal. IMPRESSION: 1. Large bore right pleural drain remains in place. Allowing for portable technique, no residual pneumothorax. 2. Mild cardiomegaly with decreased vascular prominence. Electronically signed by: Brooks Stephens M.D. 08/09/2017 7:18 AM Dictated Date/Time: 08/09/2017 7:17 AM
[2017-08-09 08:17] VITALS: BP 120/69; PULSE 73; TEMP 36.4; O2SAT 94
[2017-08-09] MEDS: DOCUSATE SODIUM 100 MG CAP PO SCH (08:58)
[2017-08-09] MEDS ORDERED: ENOXAPARIN 40 MG/0.4 ML SYR SQ SCH (09:00)
[2017-08-09] MEDS ORDERED: CYANOCOBALAMIN 500 MCG TAB (VIT B-12) PO SCH (09:00)
[2017-08-09] MEDS ORDERED: LISINOPRIL 20 MG TAB PO SCH (09:00)
[2017-08-09] MEDS ORDERED: INSULIN GLARGINE SOLOSTAR 100 UNITS/ML 3 ML PEN SC SCH (09:00)
[2017-08-09] MEDS: INSULIN ASPART 100 UNITS/ML 3 ML PEN SC SCH (09:07)
--- NOTE | 2017-08-09 10:06 | Discharge Instructions ---
Discharge Instructions Date of Service August 09, 2017. Admission Reason for Admission: Mediastinal Masses, Type 2 Diabetes Discharge Discharge Diagnosis / Problem: Mediastinal / Ge junction masses Discharge Goals Goal(s): Learn about illness (Return to office next week to go over pathology) Activity Recommendations Activity Limitations: as noted below Lifting Limitations: gradually increase as tolerated Exercise/Sports Limitations: gradually increase as tolerated May Resume Sexual Activity: when tolerated Shower/Bathe: may shower/bathe in 3 days . Instructions / Follow-Up Instructions / Follow-Up Remove all dressings and shower on Saturday, August 12, 2017. Walk!!! Current Hospital Diet Patient's current hospital diet: Diabetes Type 2 Diet Discharge Diet Recommended Diet: Diabetes Type 2 Diet Procedures Procedures Performed: Right Video Assisted Thoracoscopy with Biopsy of Mediastinal Masses Pending Studies Studies pending at discharge: yes List of pending studies: Final pathology Laboratory Results Hemoglobin A1c Test 06/10/17 07:11 Range/Units Estimated Average Glucose 235 mg/dl Hemoglobin A1c 9.8 H 4.5-5.6 % Lipid Panel Test 07/19/17 03:49 Range/Units Triglycerides Level 233 H 0-150 mg/dl Cholesterol Level 120 0-200 mg/dl HDL Cholesterol 26 mg/dl Cholesterol/HDL Ratio 4.6 LDL Cholesterol, Calculated 47 mg/dl Medical Emergencies . Who to Call and When: Medical Emergencies: If at any time you feel your situation is an emergency, please call 911 immediately. . Non-Emergent Contact Non-Emergency issues call your: Surgeon (Call [phone] Osman for any issues.) . "Provider Documentation" section prepared by Philip Osman. .
--- NOTE | 2017-08-09 10:10 | DIAGNOSTIC IMAGING REPORT ---
CHEST ONE VIEW PORTABLE CLINICAL HISTORY: 62 years-old Male presenting with chest tube removal. TECHNIQUE: Portable supine AP view of the chest was obtained. COMPARISON: 08/09/2017 at 6:48 AM. FINDINGS: Atherosclerosis of aortic arch. Cardiac silhouette enlarged. The large bore right pleural drain has been removed. Trace soft tissue emphysema noted over the right anterior chest wall. No focal opacity. No large effusion or pneumothorax. Osseous structures normal. IMPRESSION: 1. No pneumothorax status post right chest tube removal. Electronically signed by: Brooks Stephens M.D. 08/09/2017 10:09 AM Dictated Date/Time: 08/09/2017 10:08 AM
[2017-08-09 10:40] VITALS: BP 120/69; PULSE 73; TEMP 36.4; O2SAT 94
--- NOTE | 2017-08-09 14:25 | DISCHARGE SUMMARY ---
DISCHARGE DIAGNOSES: Anterior mediastinal mass and gastroesophageal junction mass (questionable parathyroid tissue). HOSPITAL COURSE: Manuela Clements is a very nice 62-year-old male who underwent a screening CT scan back in December and was found to have an anterior mediastinal mass which was felt to be a possible pericardial cyst. It was benign in appearance. He had no symptoms. He then presented with chest pain, he underwent a CT scan to rule out pulmonary embolism and was found to have not only this mass, but also some process around his GE junction. Endoscopic ultrasound just showed reactive tissue. We discussed his case at our multidisciplinary cancer conference and I elected to proceed with biopsy of this. On 08/18/2017, the patient underwent an uncomplicated left thoracoscopy. I removed the majority of the anterior mediastinal mass. Frozen section showed this to be parathyroid tissue. I then biopsied the GE junction tumor and this likewise was appeared to be parathyroid tissue on frozen. Endocrine markers are still pending of course. The patient did superbly. We had no air leak. He had really no pain. I removed his chest tube the following morning. His x-ray looked very good after we removed this. I will see him back in the office next week to go over our final pathology.
== END 2017-08-09 11:44 | disposition home or self-care (01) | DRG 989 ==
LOC: C.ACU 07:15 → C.MSW 08:55 → ENRESERV 12:03
PROVIDERS: ADMIT Surgery; ATTEND Surgery
PROC: 0WBF4ZX Excision of Abdominal Wall, Percutaneous Endoscopic Approach, Diagnostic (ICD-10-PCS; principal; 2017-08-08 09:00)
PROC: 0WBC4ZX Excision of Mediastinum, Percutaneous Endoscopic Approach, Diagnostic (ICD-10-PCS; principal; 2017-08-08 09:00)
DX: J98.59 Other diseases of mediastinum, not elsewhere classified (principal); R09.89 Other specified symptoms and signs involving the circulatory and respiratory systems; E11.42 Type 2 diabetes mellitus with diabetic polyneuropathy; R20.8 Other disturbances of skin sensation; Z85.828 Personal history of other malignant neoplasm of skin; Z87.891 Personal history of nicotine dependence; E78.5 Hyperlipidemia, unspecified; I10 Essential (primary) hypertension; F52.8 Other sexual dysfunction not due to a substance or known physiological condition; E66.9 Obesity, unspecified; G47.33 Obstructive sleep apnea (adult) (pediatric); E11.49 Type 2 diabetes mellitus with other diabetic neurological complication; E11.65 Type 2 diabetes mellitus with hyperglycemia; Z79.4 Long term (current) use of insulin; J44.9 Chronic obstructive pulmonary disease, unspecified; Z87.2 Personal history of diseases of the skin and subcutaneous tissue; Z83.3 Family history of diabetes mellitus; Z80.42 Family history of malignant neoplasm of prostate; Z82.49 Family history of ischemic heart disease and other diseases of the circulatory system; Z79.82 Long term (current) use of aspirin; Z68.38 Body mass index [BMI] 38.0-38.9, adult

== ENCOUNTER → 2017-08-19 | Outpatient (CLI) | payer OTHER ==
[~2017-08-19] MED LIST changes: -LACTATED RINGER'S 1000ML 1,000 ML IV SCH
--- NOTE | 2017-08-19 08:53 | DIAGNOSTIC IMAGING REPORT ---
CHEST 2 VIEWS ROUTINE HISTORY: R91.1 Pulmonary [id number] COMPARISON: Chest 08/09/2017. FINDINGS: No pleural effusions. No pneumothorax. The heart remains mildly enlarged. No evidence for pulmonary edema. Trace right pleural effusion and right basilar linear density. Otherwise, the lungs are clear. IMPRESSION: 1. Trace right pleural effusion and a right basilar linear density suggestive of subsegmental atelectasis. 2. No pneumothorax. 3. Stable mild cardiomegaly. Electronically signed by: Flynn Putnam M.D. 08/19/2017 8:52 AM Dictated Date/Time: 08/19/2017 8:50 AM
== END | disposition home or self-care (01) ==
LOC: C.RAD 08:23
PROVIDERS: ATTEND Surgery
DX: R91.1 Solitary pulmonary nodule (principal); J90 Pleural effusion, not elsewhere classified

== ENCOUNTER 2022-11-09 19:10 | Inpatient (IN) ==
[2022-11-09] MEDS ORDERED: SODIUM CHLORIDE 0.9% 1000ML 1,000 ML IV ONE (19:25)
--- NOTE | 2022-11-09 19:49 | XRay Report ---
SINGLE VIEW CHEST CLINICAL HISTORY: Sepsis. FINDINGS: 2 AP, portable, upright chest radiographs are compared to study dated 08/15/2022. The cardio mediastinal silhouette is unremarkable noting atherosclerotic calcification of the thoracic aorta. Th ere is bibasilar scarring/atelectasis. No airspace consolidation or large pleural effusion is identif ied. No pneumothorax is seen. The bony thorax is grossly intact. IMPRESSION: No active disease in the chest. ACT 112: Negative or not required by law. Electronically signed by: Shaheen Nelson M.D. 11/09/2022 7:46 PM
[2022-11-09 20:18] LABS: Basophils # (auto) 0.05 K/uL (0-0.2); Basophils % (auto) 0.3 %; Eosinophils # (auto) 0.19 K/uL (0-0.50); Eosinophils % (auto) 1.3 %; Hematocrit (blood only) 36.4 % (42.0-52.0); Hemoglobin 12.4 g/dl (14.0-18.0); Immature Granulocytes # (auto) 0.07 K/uL (0.01-0.20); Immature Granulocytes % (auto) 0.5 %; Lymphocytes # (auto) 0.98 K/uL (1.2-3.4); Lymphocytes % (auto) 6.6 %; Mean Corpuscular Hemoglobin 30.9 pg (25.0-34.0); Mean Corpuscular Hgb Conc 34.1 g/dL (32.0-36.0); Mean Corpuscular Volume 90.8 fL (80.0-100.0); Mean Platelet Volume 10.4 fL (9.4-12.4); Monocytes % (auto) 8.8 %; Neutrophils # (auto) 12.17 K/uL (1.40-6.50); Neutrophils % (auto) 82.5 %; Platelet Count 203 K/uL (130-400); RDW Coefficient of Variation 12.7 % (11.5-14.5); RDW Standard Deviation 41.9 fL (36.4-46.3); Red Blood Count 4.01 M/uL (4.70-6.10); White Blood Count 14.76 K/ul (4.8-10.8)
[2022-11-09] MEDS ORDERED: SODIUM CHLORIDE 0.9% 1000ML 500 ML IV ONE (20:22)
[2022-11-09] MEDS ORDERED: SODIUM CHLORIDE 0.9% 1000ML 2,000 ML IV ONE (20:22)
[2022-11-09] MEDS ORDERED: PIPERACILLIN/TAZOBACTAM 4.5 GM/120 ML BAG IV ONE (20:22)
[2022-11-09 20:36] LABS: Albumin Level 4.7 gm/dl (3.4-5.0); BUN Creatinine Ratio 9.2 (10-20); Bilirubin Direct 0.2 mg/dl (0-0.2); Bilirubin,Total 0.8 mg/dl (0.2-1.0); Calcium 10.1 mg/dl (8.6-10.3); Creatinine Clr Calc Pharmacy 63.7 ml/min; Est GFR (African American) 59.6 ml/min; Est GFR (Non-African American) 51.5 ml/min; Magnesium 1.3 mg/dl (1.7-2.4); Potassium 4.2 mmol/L (3.5-5.1); Total Protein 7.7 gm/dl (6.0-8.3)
[2022-11-09 20:43] LABS: Troponin I High Sensitivity 8.8 pg/ml (0-20)
[2022-11-09 20:46] LABS: INR 1.1 (0.9-1.1); Partial Thromboplastin Ratio 0.9; Partial Thromboplastin Time 26.6 Seconds (21.0-31.0); Prothrombin Time 11.5 Seconds (9.0-12.0)
[2022-11-09] MEDS ORDERED: IBUPROFEN 600 MG TAB PO STA (20:48)
[2022-11-09 22:15] LABS: Appearance Urine Clear (Clear); Bacteria Urine Automated 4+ (Negative); Bilirubin Urine Negative (Negative); Blood Urine Trace (Negative); Color Urine Yellow; Epithelial Cell Urine Auto 0-5 /lpf (0-5); Glucose Urine UA Negative (Negative); Ketones Urine Trace (Negative); Leukocyte Esterase Urine 2+ (Negative); Nitrite Urine Positive (Negative); Protein Urine Negative (Negative); RBC Urine Automated 0-4 /hpf (0-4); Urobilinogen Urine Negative (Negative)
[2022-11-09 22:18] LABS: Cast Urine Automated >30 /lpf (0-5)
[2022-11-09] MEDS ORDERED: ACETAMINOPHEN 325 MG TAB PO STA (22:37)
[2022-11-09] MEDS ORDERED: DEXTROSE 50% 50 ML SYRINGE IV PRN (23:35)
[2022-11-09] MEDS ORDERED: GLUCAGON FOR INJ 1 MG VIAL SQ PRN (23:35)
[2022-11-09] MEDS ORDERED: GLUCOSE 10 TAB/TUBE PO PRN (23:35)
[2022-11-09] MEDS ORDERED: ACETAMINOPHEN 325 MG TAB PO PRN (23:35)
[2022-11-09] MEDS ORDERED: CARBOHYDRATES FOR HYPOGLYCEMIA PO PRN (23:35)
[2022-11-09] MEDS ORDERED: SODIUM CHLORIDE 0.9% 1000ML 1,000 ML IV SCH (23:35)
[2022-11-09] MEDS ORDERED: GLUCOSE 40% GEL 15 GM TUBE PO PRN (23:35)
[2022-11-09] MEDS ORDERED: ONDANSETRON INJ 2 MG/ML 2 ML VIAL IV PRN (23:35)
--- NOTE | 2022-11-09 23:45 | Emergency Department Note ---
History of Present Illness General Chief complaint: Fever Stated complaint: SHAKES,FEVER Time Seen by Provider: 11/09/22 19:44 History of Present Illness Provider complaint: Fever Onset (ago): day(s) 1 Associated symptoms: + fever/chills 67-year-old male presents emergency department for fever and chills. Patient reports symptoms began today. Tmax 103.1 today. Patient took Tylenol prior to arrival in the emergency department. Patient reports he is having hematuria. No dysuria. No chest pain or abdominal pain. No difficulty breathing. No headache. Patient reports he had a recent biopsy done by urology. Home Medications Medication Instructions Recorded Confirmed Type cyanocobalamin (vitamin B-12) 500 1,000 mcg PO QAM 11/10/18 11/09/22 History mcg tablet aspirin 81 mg tablet,delayed 81 mg PO QPM 02/14/21 11/09/22 History release pen needle, diabetic 31 gauge x #500 ea 05/15/21 11/08/22 Rx 3/16" (BD Ultra-Fine Mini Pen Needle) cholecalciferol (vitamin D3) 50 100 mcg PO DAILY #30 caps 10/15/21 11/09/22 Rx mcg (2,000 unit) capsule lisinopril 20 mg tablet 20 mg PO QAM Hypertension #90 tabs 12/13/21 11/09/22 Rx amitriptyline 75 mg tablet 75 mg PO HS Diabetic Polyneuopathy 01/01/22 11/09/22 Rx 90 days #90 tabs semaglutide 2 mg/dose (8 mg/3 mL) 2 mg (0.75 mL) subcut Q7D 3 months 01/16/22 11/09/22 Rx subcutaneous pen injector (Ozempic) #9 mL Basaglar KwikPen U-100 Insulin 100 See Rx Instructions .Route 04/24/22 11/09/22 Rx unit/mL (3 mL) subcutaneous .COMPLEX #45 mL (insulin glargine) atorvastatin 40 mg tablet 40 mg PO QPM #90 tabs 05/14/22 11/09/22 Rx OneTouch Ultra Test (blood sugar #300 ea 06/03/22 11/09/22 Rx diagnostic) Novolin N FlexPen 100 unit/mL (3 25 unit (0.25 mL) subcut QPM #30 mL 06/20/22 11/09/22 Rx mL) subcutaneous insulin pen (insulin NPH isoph U-100 human) metformin 1,000 mg tablet 1,000 mg PO BID #180 tabs 06/20/22 11/09/22 Rx insulin aspart U-100 100 unit/mL See Rx Instructions subcut TID 06/24/22 11/09/22 Rx (3 mL) subcutaneous pen (Novolog Type 2 Diabetes #60 mL FlexPen U-100 Insulin aspart) oxybutynin chloride 5 mg 5 mg PO DAILY #30 tabs 08/22/22 11/09/22 Rx tablet,extended release 24 hr (Ditropan XL) tamsulosin 0.4 mg capsule 0.4 mg PO DAILY 20 days #30 caps 08/28/22 11/09/22 Rx pantoprazole 40 mg tablet,delayed 40 mg PO DAILY #90 tabs 09/12/22 11/09/22 Rx release Allergies Allergy/AdvReac Type Severity Reaction Status Date / Time No Known Allergies Allergy Unknown Verified 11/08/22 14:39 Past Med/Surg History Medical History Carotid bruit No hemodynamically significant stenosis noted on 2012 carotid doppler; no carotid bruit noted on 08/05/22 at sleep medicine appt No bruits noted at PCP appt 2020 Diabetic neuropathy DM type 2 (diabetes mellitus, type 2) IDDM Esophagitis Hairy cell leukemia Dx 2017, 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 Jorge History of colonoscopy History of esophagogastroduodenoscopy (EGD) History of melanoma excision History of removal of Port-a-Cath (03/07/20) Port removal. Dr. Jorge 03/07/2020 History of tooth extraction Hx of cystoscopy 08/2022 [facility] S/P tonsillectomy Status post lung surgery (~07/2017) right thoracoscopy with biopsy Family History Father Diabetes Grandfather (Paternal) Diabetes Denies family history of Ovarian cancer Prostate cancer Myocardial infarction Breast cancer Colorectal cancer Social History Smoking Status: Current every day smoker Tobacco Type: Cigarettes Age Started Using Tobacco: 18; packs per day: 1.5; Cigarettes Per Day: 1 PPD- ADVISED; Second Hand Exposure: Yes (as a child); Do You Dip or Chew Tobacco: No; Hx Alcohol Use: No Hx Substance Use: No Preferred Language: Maltese Communication Ability: Effective Visual Impairment: No Limitations Hearing Ability: Normal Gold Prospector Required: No Beliefs That Will Affect Care: None marital status: Current Living Situation: Spouse current occupational status: retired 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 [employer] Feels Safe at Home: Yes Childhood Exposure to Second-Hand Smoke: Yes Dental Care, Regularly: No Physical Activity Frequency: Does not Exercise Physical Activity Frequency Comment: Walking Seatbelt Use: always Sunscreen Use: Yes Do you think of yourself as: straight/heterosexual Assistive Devices: CPAP and Denture - Upper Physical Exam Vital Signs Vital Signs - 24 hr 11/09/22 19:15 11/09/22 20:01 11/09/22 20:03 Temperature 37.7 C H Temperature Source Temporal Artery Scan Pulse Rate 128 H 116 H 116 H Pulse Rate [Apical] Pulse Rate from SpO2 Sensor Pulse Rhythm Regular Pulse Rhythm [Apical] Pulse Strength Normal Pulse Strength [Apical] Respiratory Rate 20 28 H 26 H Respiratory Effort / Characteristics Non-Labored Spontaneous Respiratory Depth Normal Blood Pressure 135/65 144/64 H Blood Pressure [Right Arm] Blood Pressure Mean 88 90 Blood Pressure Mean [Right Arm] Blood Pressure Position Sitting Pulse Oximetry 94 93 93 Oxygen Delivery Method Room Air Room Air Room Air Sepsis Recent Fever Within 48 Hours Yes Sepsis New/Unexplained Change in Mental Status N/A Sepsis Action Taken by Nursing No Action Required 11/09/22 20:04 11/09/22 20:10 11/09/22 20:40 Temperature 37.3 C 39.2 C H Temperature Source Oral Oral Pulse Rate 111 H Pulse Rate [Apical] 119 H Pulse Rate from SpO2 Sensor Pulse Rhythm Pulse Rhythm [Apical] Regular Pulse Strength Pulse Strength [Apical] Normal Respiratory Rate 22 Respiratory Effort / Characteristics Respiratory Depth Deep Blood Pressure Blood Pressure [Right Arm] 187/99 H Blood Pressure Mean Blood Pressure Mean [Right Arm] 128 Blood Pressure Position Pulse Oximetry 94 Oxygen Delivery Method Room Air Sepsis Recent Fever Within 48 Hours Sepsis New/Unexplained Change in Mental Status Sepsis Action Taken by Nursing 11/09/22 20:10 11/09/22 20:15 11/09/22 20:30 Temperature Temperature Source Pulse Rate 111 H 112 H 109 H Pulse Rate [Apical] Pulse Rate from SpO2 Sensor 111 H 112 H 111 H Pulse Rhythm Pulse Rhythm [Apical] Pulse Strength Pulse Strength [Apical] Respiratory Rate 26 H 29 H 24 Respiratory Effort / Characteristics Respiratory Depth Blood Pressure Blood Pressure [Right Arm] Blood Pressure Mean Blood Pressure Mean [Right Arm] Blood Pressure Position Pulse Oximetry 93 93 97 Oxygen Delivery Method Sepsis Recent Fever Within 48 Hours Sepsis New/Unexplained Change in Mental Status Sepsis Action Taken by Nursing 11/09/22 20:31 11/09/22 20:45 11/09/22 20:46 Temperature Temperature Source Pulse Rate 113 H 122 H 121 H Pulse Rate [Apical] Pulse Rate from SpO2 Sensor 113 H Pulse Rhythm Pulse Rhythm [Apical] Pulse Strength Pulse Strength [Apical] Respiratory Rate 29 H 29 H 22 Respiratory Effort / Characteristics Respiratory Depth Blood Pressure 187/99 H 136/84 Blood Pressure [Right Arm] Blood Pressure Mean 128 101 Blood Pressure Mean [Right Arm] Blood Pressure Position Pulse Oximetry 97 95 Oxygen Delivery Method Sepsis Recent Fever Within 48 Hours Sepsis New/Unexplained Change in Mental Status Sepsis Action Taken by Nursing 11/09/22 21:00 11/09/22 21:15 11/09/22 22:00 Temperature 39.3 C H Temperature Source Skin Pulse Rate 110 H 110 H Pulse Rate [Apical] Pulse Rate from SpO2 Sensor 116 H 111 H Pulse Rhythm Pulse Rhythm [Apical] Pulse Strength Pulse Strength [Apical] Respiratory Rate 33 H 35 H Respiratory Effort / Characteristics Respiratory Depth Blood Pressure 126/83 142/67 H Blood Pressure [Right Arm] Blood Pressure Mean 97 92 Blood Pressure Mean [Right Arm] Blood Pressure Position Pulse Oximetry 94 95 Oxygen Delivery Method Room Air Sepsis Recent Fever Within 48 Hours Sepsis New/Unexplained Change in Mental Status Sepsis Action Taken by Nursing 11/09/22 21:30 11/09/22 21:45 11/09/22 22:00 Temperature Temperature Source Pulse Rate 117 H 113 H 112 H Pulse Rate [Apical] Pulse Rate from SpO2 Sensor 113 H 112 H Pulse Rhythm Pulse Rhythm [Apical] Pulse Strength Pulse Strength [Apical] Respiratory Rate 24 33 H 29 H Respiratory Effort / Characteristics Respiratory Depth Blood Pressure 129/66 127/71 Blood Pressure [Right Arm] Blood Pressure Mean 87 89 Blood Pressure Mean [Right Arm] Blood Pressure Position Pulse Oximetry 90 89 L Oxygen Delivery Method Sepsis Recent Fever Within 48 Hours Sepsis New/Unexplained Change in Mental Status Sepsis Action Taken by Nursing Physical Exam GENERAL: She is oriented to person, place, and time. She appears well-developed and well-nourished. She does not appear distressed. HENT: Exam performed. -Head: Normocephalic and atraumatic. -Right Ear: External ear normal. No mastoid erythema -Left Ear: External ear normal. No mastoid erythema -Mouth/Throat: The oropharynx is clear and moist. No trismus in the jaw. No dental abscesses or uvula swelling. No oropharyngeal exudate or tonsillar abscesses. EYES: Conjunctivae and EOM are normal.Right eye exhibits no discharge. Left eye exhibits no discharge. No scleral icterus. NECK: Normal range of motion. Neck supple. No JVD present. No tracheal deviation and normal range of motion present. CV: Tachycardia rate, regular rhythm, normal heart sounds and intact distal pulses. There is no peripheral edema. Palpable radial pulses bue. PULM/CHEST: Effort normal and breath sounds normal. No respiratory distress. No stridor. She has no wheezes. She has no rales. -Chest Wall: She exhibits no tenderness. ABD: The abdomen is soft. Bowel sounds are normal. She has no distension. No mass is present. There is no tenderness. There is no rebound, no guarding, no Hernandez's sign and no tenderness at McBurney's point. Rovsig negative MUSC/SKEL: Normal range of motion. There is no peripheral edema, tenderness or deformity. NEURO: Motor and sensation grossly intact. SKIN: Skin is warm and dry. She is not diaphoretic. PSYCH: She has a normal mood and affect. Behavior is normal. Judgment and thought content normal. Course Course 194: The patient was evaluated in room A12. A complete history and physical exam was performed Cardiac monitoring: An order was placed for continuous cardiac monitoring. The monitor shows a rate of 110 with sinus tachycardia rhythm interpreted by me Sepsis protocols were initiated. 2020: Patient remains tachycardic. White blood cell count 14.76. Lactic acid 2.5. Spoke with Dr. De La O on-call urology. He states that the patient most likely became bacteremic secondary to his recent biopsy. He states no need for CT imaging at this time and states that the patient should be treated with broad-spectrum antibiotics. 30 cc/kg bolus based off the patient's ideal body weight ordered for the patient as well as Zosyn. [facility]. Administered Medications Discontinued Medications Sodium Chloride (Nss 1000ml) 1,000 mls @ 999 mls/hr IV .Q1H1M ONE Stop: 11/09/22 20:25 Last Infusion: 11/09/22 21:10 Dose: 0 mls/hr Documented By: Admin: 11/09/22 20:00 Dose: 999 mls/hr Documented By: Sodium Chloride (Nss 1000ml) 2,000 mls @ 999 mls/hr IV .Q2H1M ONE Stop: 11/09/22 22:22 Last Infusion: 11/09/22 22:39 Dose: 0 mls/hr Documented By: Admin: 11/09/22 20:44 Dose: 999 mls/hr Documented By: SAB Sodium Chloride (Nss 1000ml) 500 mls @ 999 mls/hr IV .Q31M ONE Stop: 11/09/22 20:52 Last Infusion: 11/09/22 21:26 Dose: 0 mls/hr Documented By: Admin: 11/09/22 20:58 Dose: 999 mls/hr Documented By: SAB Piperacillin Sod/Tazobactam Sod (Zosyn) 4.5 gm in 120 mls @ 240 mls/hr IV NOW ONE Stop: 11/09/22 20:51 Last Infusion: 11/09/22 21:21 Dose: 0 mls/hr Documented By: Admin: 11/09/22 20:52 Dose: 240 mls/hr Documented By: SAB Ibuprofen (Ibuprofen 600 Mg Tab) 600 mg PO NOW STA Stop: 11/09/22 20:49 Last Admin: 11/09/22 20:52 Dose: 600 mg Documented By: SAB Medical Decision Making Medical Records Attestation: I reviewed the patient's medical records. External medical records were reviewed. The patient was seen by urology Dr. Rosa yesterday. Patient had a transrectal ultrasound and a transrectal biopsy of the patient's prostate was taken. Laboratory Data Attestation: I reviewed the patient's lab results. 11/09/22 19:50 11/09/22 19:50 Lab Results 11/09/22 11/09/22 11/09/22 Range/Units 19:50 19:50 19:50 WBC 14.76 H (4.8-10.8) K/ul RBC 4.01 L (4.70-6.10) M/uL Hgb 12.4 L (14.0-18.0) g/dl Hct 36.4 L (42.0-52.0) % MCV 90.8 (80.0-100.0) fL MCH 30.9 (25.0-34.0) pg MCHC 34.1 (32.0-36.0) g/dL RDW Std Deviation 41.9 (36.4-46.3) fL RDW Coeff of [place] 12.7 (11.5-14.5) % Plt Count 203 (130-400) K/uL MPV 10.4 (9.4-12.4) fL Immature Gran % (Auto) 0.5 % Neut % (Auto) 82.5 % Lymph % (Auto) 6.6 % [place] % (Auto) 8.8 % Eos % (Auto) 1.3 % Baso % (Auto) 0.3 % Neut # (Auto) 12.17 H (1.40-6.50) K/uL Lymph # (Auto) 0.98 L (1.2-3.4) K/uL [place] # (Auto) 1.30 H (0.11-0.59) K/uL Eos # (Auto) 0.19 (0-0.50) K/uL Baso # (Auto) 0.05 (0-0.2) K/uL Immature Gran # (Auto) 0.07 (0.01-0.20) K/uL PT 11.5 (9.0-12.0) Seconds INR 1.1 (0.9-1.1) APTT 26.6 (21.0-31.0) Seconds PTT Ratio 0.9 Sodium 135 L (136-145) mmol/L Potassium 4.2 (3.5-5.1) mmol/L Chloride 103 (98-107) mmol/L Carbon Dioxide 23 (21-32) mmol/L Anion Gap 9 (3-11) BUN 13 (6-23) mg/dl Creatinine 1.42 H (0.6-1.4) mg/dl Est Cr Clr Drug Dosing 63.7 ml/min Est GFR ( Amer) 59.6 ml/min Est GFR (Non-Af Amer) 51.5 ml/min BUN/Creatinine Ratio 9.2 L (10-20) Glucose 211 H (70-99(Fasting)) mg/dl POC Glucose (70-99) mg/dl Lactate (0.4-2.0) mmol/L Calcium 10.1 (8.6-10.3) mg/dl Magnesium 1.3 L (1.7-2.4) mg/dl Total Bilirubin 0.8 (0.2-1.0) mg/dl Direct Bilirubin 0.2 (0-0.2) mg/dl AST 23 (13-39) U/L ALT 28 (7-52) U/L Alkaline Phosphatase 50 (34-104) U/L Troponin I High Sens 8.8 (0-20) pg/ml Total Protein 7.7 (6.0-8.3) gm/dl Albumin 4.7 (3.4-5.0) gm/dl Procalcitonin (0-0.5) ng/ml Urine Color Urine Appearance (Clear) Urine pH (4.5-7.5) Ur Specific [place] (1.000-1.030) Urine Protein (Negative) Urine Glucose (UA) (Negative) Urine Ketones (Negative) Urine Blood (Negative) Urine Nitrite (Negative) Urine Bilirubin (Negative) Urine Urobilinogen (Negative) Ur Leukocyte Esterase (Negative) Urine WBC (Auto) (0-5) /hpf Urine RBC (Auto) (0-4) /hpf U Hyaline Cast (Auto) (0-5) /lpf U Epithel Cells (Auto) (0-5) /lpf Urine Bacteria (Auto) (Negative) 11/09/22 11/09/22 11/09/22 Range/Units 19:50 19:50 19:56 WBC (4.8-10.8) K/ul RBC (4.70-6.10) M/uL Hgb (14.0-18.0) g/dl Hct (42.0-52.0) % MCV (80.0-100.0) fL MCH (25.0-34.0) pg MCHC (32.0-36.0) g/dL RDW Std Deviation (36.4-46.3) fL RDW Coeff of [place] (11.5-14.5) % Plt Count (130-400) K/uL MPV (9.4-12.4) fL Immature Gran % (Auto) % Neut % (Auto) % Lymph % (Auto) % [place] % (Auto) % Eos % (Auto) % Baso % (Auto) % Neut # (Auto) (1.40-6.50) K/uL Lymph # (Auto) (1.2-3.4) K/uL [place] # (Auto) (0.11-0.59) K/uL Eos # (Auto) (0-0.50) K/uL Baso # (Auto) (0-0.2) K/uL Immature Gran # (Auto) (0.01-0.20) K/uL PT (9.0-12.0) Seconds INR (0.9-1.1) APTT (21.0-31.0) Seconds PTT Ratio Sodium (136-145) mmol/L Potassium (3.5-5.1) mmol/L Chloride (98-107) mmol/L Carbon Dioxide (21-32) mmol/L Anion Gap (3-11) BUN (6-23) mg/dl Creatinine (0.6-1.4) mg/dl Est Cr Clr Drug Dosing ml/min Est GFR ( Amer) ml/min Est GFR (Non-Af Amer) ml/min BUN/Creatinine Ratio (10-20) Glucose (70-99(Fasting)) mg/dl POC Glucose 224 H (70-99) mg/dl Lactate 2.5 H* (0.4-2.0) mmol/L Calcium (8.6-10.3) mg/dl Magnesium (1.7-2.4) mg/dl Total Bilirubin (0.2-1.0) mg/dl Direct Bilirubin (0-0.2) mg/dl AST (13-39) U/L ALT (7-52) U/L Alkaline Phosphatase (34-104) U/L Troponin I High Sens (0-20) pg/ml Total Protein (6.0-8.3) gm/dl Albumin (3.4-5.0) gm/dl Procalcitonin 0.28 (0-0.5) ng/ml Urine Color Urine Appearance (Clear) Urine pH (4.5-7.5) Ur Specific [place] (1.000-1.030) Urine Protein (Negative) Urine Glucose (UA) (Negative) Urine Ketones (Negative) Urine Blood (Negative) Urine Nitrite (Negative) Urine Bilirubin (Negative) Urine Urobilinogen (Negative) Ur Leukocyte Esterase (Negative) Urine WBC (Auto) (0-5) /hpf Urine RBC (Auto) (0-4) /hpf U Hyaline Cast (Auto) (0-5) /lpf U Epithel Cells (Auto) (0-5) /lpf Urine Bacteria (Auto) (Negative) 11/09/22 Range/Units 21:33 WBC (4.8-10.8) K/ul RBC (4.70-6.10) M/uL Hgb (14.0-18.0) g/dl Hct (42.0-52.0) % MCV (80.0-100.0) fL MCH (25.0-34.0) pg MCHC (32.0-36.0) g/dL RDW Std Deviation (36.4-46.3) fL RDW Coeff of [place] (11.5-14.5) % Plt Count (130-400) K/uL MPV (9.4-12.4) fL Immature Gran % (Auto) % Neut % (Auto) % Lymph % (Auto) % [place] % (Auto) % Eos % (Auto) % Baso % (Auto) % Neut # (Auto) (1.40-6.50) K/uL Lymph # (Auto) (1.2-3.4) K/uL [place] # (Auto) (0.11-0.59) K/uL Eos # (Auto) (0-0.50) K/uL Baso # (Auto) (0-0.2) K/uL Immature Gran # (Auto) (0.01-0.20) K/uL PT (9.0-12.0) Seconds INR (0.9-1.1) APTT (21.0-31.0) Seconds PTT Ratio Sodium (136-145) mmol/L Potassium (3.5-5.1) mmol/L Chloride (98-107) mmol/L Carbon Dioxide (21-32) mmol/L Anion Gap (3-11) BUN (6-23) mg/dl Creatinine (0.6-1.4) mg/dl Est Cr Clr Drug Dosing ml/min Est GFR ( Amer) ml/min Est GFR (Non-Af Amer) ml/min BUN/Creatinine Ratio (10-20) Glucose (70-99(Fasting)) mg/dl POC Glucose (70-99) mg/dl Lactate (0.4-2.0) mmol/L Calcium (8.6-10.3) mg/dl Magnesium (1.7-2.4) mg/dl Total Bilirubin (0.2-1.0) mg/dl Direct Bilirubin (0-0.2) mg/dl AST (13-39) U/L ALT (7-52) U/L Alkaline Phosphatase (34-104) U/L Troponin I High Sens (0-20) pg/ml Total Protein (6.0-8.3) gm/dl Albumin (3.4-5.0) gm/dl Procalcitonin (0-0.5) ng/ml Urine Color Yellow Urine Appearance Clear (Clear) Urine pH 6.0 (4.5-7.5) Ur Specific [place] 1.020 (1.000-1.030) Urine Protein Negative (Negative) Urine Glucose (UA) Negative (Negative) Urine Ketones Trace H (Negative) Urine Blood Trace H (Negative) Urine Nitrite Positive A (Negative) Urine Bilirubin Negative (Negative) Urine Urobilinogen Negative (Negative) Ur Leukocyte Esterase 2+ H (Negative) Urine WBC (Auto) 10-30 H (0-5) /hpf Urine RBC (Auto) 0-4 (0-4) /hpf U Hyaline Cast (Auto) >30 H (0-5) /lpf U Epithel Cells (Auto) 0-5 (0-5) /lpf Urine Bacteria (Auto) 4+ H (Negative) Imaging Data Attestation: I personally reviewed and interpreted this imaging study as follows: My Impression: Chest x-ray negative. Airway clear. No pneumothorax. No consolidation. No ca rdiomegaly or cephalization.. No free air under the diaphragm. No fractures of the skeletal structures. Radiologist's Impression: Chest X-Ray 11/09/22 19:25 SINGLE VIEW CHEST CLINICAL HISTORY: Sepsis. FINDINGS: 2 AP, portable, upright chest radiographs are compared to study dated 08/15/2022. The cardiomediastinal silhouette is unremarkable noting atherosclerotic calcification of the thoracic aorta. There is bibasilar scarring/atelectasis. No airspace consolidation or large pleural effusion is identified. No pneumothorax is seen. The bony thorax is grossly intact. IMPRESSION: No active disease in the chest. ACT 112: Negative or not required by law. Electronically signed by: Shaheen Nelson M.D. 11/09/2022 7:46 PM ECG Data Attestation: I personally reviewed and interpreted this ECG as follows: Rate (beats per minute): 121 Rhythm: + sinus tachycardia ECG Intervals/blocks: + Normal RI and + Normal QT-c ECG ST segments: + Normal ST segments Additional Comments: QRS 76 MDM Narrative 1944: The patient was evaluated in room A12. A complete history and physical exam was performed Cardiac monitoring: An order was placed for continuous cardiac monitoring. The monitor shows a rate of 110 with sinus tachycardia rhythm interpreted by me Sepsis protocols were initiated. 2020: Patient remains tachycardic. White blood cell count 14.76. Lactic acid 2.5. Spoke with Dr. De La O on-call urology. He states that the patient most likely became bacteremic secondary to his recent biopsy. He states no need for CT imaging at this time and states that the patient should be treated with broad-spectrum antibiotics. 30 cc/kg bolus based off the patient's ideal body weight ordered for the patient as well as Zosyn. [facility] Impression & Plan Sepsis Discharge Plan Visit Data Chief Complaint: Fever Stated Complaint: SHAKES,FEVER ED Provider: Willy Mccann Discharge Problem: Sepsis Patient Disposition: Admitted As Inpatient Discharge Instructions Interventions: ED Discharge Assessment Last Done: 11/09/22 23:06
[2022-11-09] MEDS: MAGNESIUM SULFATE / D5W 1 GM/100 ML BAG IV SCH (23:48)
[2022-11-10] MEDS: NICOTINE 21 MG/24 HR TDSY TD SCH ×2 (00:59→08:19)
[2022-11-10] MEDS: MAGNESIUM SULFATE / D5W 1 GM/100 ML BAG IV SCH ×3 (01:58→08:27)
[2022-11-10] MEDS: PIPERACILLIN/TAZOBACTAM 4.5 GM in DEXTROSE 5% 100 ML IV SCH ×2 (03:07→09:57)
--- NOTE | 2022-11-10 03:25 | History & Physical Report ---
Date of Service November 10, 2022 The patient was seen and examined on November 09, 2022 Assessment & Plan (1) Sepsis due to urinary tract infection: (2) Uncontrolled type 2 diabetes mellitus with neurologic complication, with long-term current use of insulin: (3) Dyslipidemia: (4) Severe obstructive sleep apnea: (5) Hypertension: (6) Hypomagnesemia: (7) CKD (chronic kidney disease), stage III: Plan Sepsis due to UTI/status post prostate biopsy yesterday- Follow urine culture and sensitivity Zosyn 4.5 g IV every 8 hours Status post 3.5 L normal saline in the ED Continue NSS at 80 mils per hour Hypomagnesemia- Magnesium 1.3 on admission Replace IV, and recheck laboratories in a.m. Diabetes mellitus- Hold metformin, standing orders for NovoLog at meals and Novolin N and Ozempic. Continue Lantus glargine 50 units subcu daily Placed on Accu-Cheks with NovoLog SSI CKD- Creatinine 1.42 with base around 1.38-1.4 IV fluids as noted above Recheck laboratories in a.m. Admission and Anticipated Discharge Date Admission Date: November 09, 2022 History of Present Illness Chief Complaint: The patient presents to the emergency department with complaint of fevers and chills, blood in urine having had a prostate biopsy done on 11/08/2022 Primary Care Provider: Cayetano Underwood MD The patient is a 67-year-old male with a past medical history including kidney stones, hiatal hernia, diabetes mellitus type 2, dyslipidemia, severe RAMILA, diabetic peripheral neuropathy, familial transthyretin amyloidosis, hypertension, obesity and hiatal hernia. Patient reports undergoing a prostate biopsy on 11/08/2022 by urology, and over the past 24 hours has had persistent fevers, chills, shaking tremors, fatigue and lethargic. Allergies Allergy/AdvReac Type Severity Reaction Status Date / Time No Known Allergies Allergy Unknown Verified 11/08/22 14:39 Home Medications Medication Instructions Recorded Confirmed Type cyanocobalamin (vitamin B-12) 500 1,000 mcg PO QAM 11/10/18 11/09/22 History mcg tablet aspirin 81 mg tablet,delayed 81 mg PO QPM 02/14/21 11/09/22 History release pen needle, diabetic 31 gauge x #500 ea 05/15/21 11/08/22 Rx 06/20" (BD Ultra-Fine Mini Pen Needle) cholecalciferol (vitamin D3) 50 100 mcg PO DAILY #30 caps 10/15/21 11/09/22 Rx mcg (2,000 unit) capsule lisinopril 20 mg tablet 20 mg PO QAM Hypertension #90 tabs 12/13/21 11/09/22 Rx amitriptyline 75 mg tablet 75 mg PO HS Diabetic Polyneuopathy 01/01/22 11/09/22 Rx 90 days #90 tabs semaglutide 2 mg/dose (8 mg/3 mL) 2 mg (0.75 mL) subcut Q7D 3 months 01/16/22 11/09/22 Rx subcutaneous pen injector (Ozempic) #9 mL Basaglar KwikPen U-100 Insulin 100 See Rx Instructions .Route 04/24/22 11/09/22 Rx unit/mL (3 mL) subcutaneous .COMPLEX #45 mL (insulin glargine) atorvastatin 40 mg tablet 40 mg PO QPM #90 tabs 05/14/22 11/09/22 Rx OneTouch Ultra Test (blood sugar #300 ea 06/03/22 11/09/22 Rx diagnostic) Novolin N FlexPen 100 unit/mL (3 25 unit (0.25 mL) subcut QPM #30 mL 06/20/22 11/09/22 Rx mL) subcutaneous insulin pen (insulin NPH isoph U-100 human) metformin 1,000 mg tablet 1,000 mg PO BID #180 tabs 06/20/22 11/09/22 Rx insulin aspart U-100 100 unit/mL See Rx Instructions subcut TID 06/24/22 11/09/22 Rx (3 mL) subcutaneous pen (Novolog Type 2 Diabetes #60 mL FlexPen U-100 Insulin aspart) oxybutynin chloride 5 mg 5 mg PO DAILY #30 tabs 08/22/22 11/09/22 Rx tablet,extended release 24 hr (Ditropan XL) tamsulosin 0.4 mg capsule 0.4 mg PO DAILY 20 days #30 caps 08/28/22 11/09/22 Rx pantoprazole 40 mg tablet,delayed 40 mg PO DAILY #90 tabs 09/12/22 11/09/22 Rx release Past Med/Surg History Medical History (Updated 11/10/22 @ 03:22 by Jonatan Damian MD) Carotid bruit No hemodynamically significant stenosis noted on 2012 carotid doppler; no carotid bruit noted on 08/05/22 at sleep medicine appt No bruits noted at PCP appt 2020 CKD (chronic kidney disease), stage III Diabetic neuropathy DM type 2 (diabetes mellitus, type 2) IDDM Esophagitis Hairy cell leukemia Dx 2017, 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 Jorge History of colonoscopy History of esophagogastroduodenoscopy (EGD) History of melanoma excision History of removal of Port-a-Cath (03/07/20) Port removal. Dr. Jorge 03/07/2020 History of tooth extraction Hx of cystoscopy 08/2022 [facility] tonsillectomy Status post lung surgery (~07/2017) right thoracoscopy with biopsy Family History Father Diabetes Grandfather (Paternal) Diabetes Denies family history of Ovarian cancer Prostate cancer Myocardial infarction Breast cancer Colorectal cancer Social History Smoking Status: Current every day smoker Tobacco Type: Cigarettes Age Started Using Tobacco: 18; packs per day: 1.5; Cigarettes Per Day: 1.5 packs; Second Hand Exposure: Yes (during childhood); Do You Dip or Chew Tobacco: No; Tobacco Cessation Education Requested by Patient: No Hx Alcohol Use: No Hx Substance Use: No Preferred Language: Divehi Communication Ability: Effective Visual Impairment: No Limitations Hearing Ability: Normal Fire Suppression Captain Required: No Beliefs That Will Affect Care: None marital status: Current Living Situation: Spouse Current Living Situation Comment: with current occupational status: retired 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 [employer] Other Information That Helps Us Care for You: No Feels Safe at Home: Yes Safety Concerns: Feels Safe At This Time Childhood Exposure to Second-Hand Smoke: Yes Dental Care, Regularly: No Physical Activity Frequency: Does not Exercise Physical Activity Frequency Comment: Walking Seatbelt Use: always Sunscreen Use: Yes Do you think of yourself as: straight/heterosexual Assistive Devices: CPAP Review of Systems Review of Systems: The patient denies chest pain, palpitations, shortness of breath, dyspnea on exertion, cough, lower extremity swelling, sore throat, nausea, vomiting, diarrhea , constipation, abdominal pain, pelvic pain, blood in stool, lightheadedness, dizziness, headache, memory loss, loss of consciousness, rash, abnormal bruising, imbalance, focal or generalized weakness, numbness or tingling in arms or legs, generalized arthralgias or myalgias, neck pain, or night sweats. The review of systems is otherwise negative other than for that already noted above, and at least 10 systems have been reviewed. Physical Exam Physical Exam: The patient is awake, alert and oriented 3, well developed and well nourished, normocephalic and atraumatic, lying in bed and in no acute distress. HEENT--PERRL, EOMI, mucous membranes and oropharynx dry. Neck--supple. No JVD. No bruits. Thyroid normal, trachea midline, no adenopathy. Heart--normal S1 and S2. No murmurs, rubs or gallops. Lungs--clear bilaterally, no respiratory distress, no accessory muscle use. Abdomen--normal bowel sounds and soft. Nontender. Nondistended, no hernias or masses, no organomegaly. Extremities--no cyanosis or clubbing. No edema. There are good distal pulses b/l. Dermatologic--normal skin turgor, normal color, no abnormal lymph nodes, no rash. Neurologic--cranial nerves II through XII grossly intact. Rheumatologic--normal range of motion. Psychiatric--normal affect. Results & Data Results & Data Vital Signs (Past 12 Hours) Vital Signs Temp Pulse Pulse Pulse Resp BP BP 11/09/22 23:25 98 H 11/09/22 23:14 11/09/22 23:14 36.7 C 109 H 18 118/65 11/10/22 00:32 103 H 24 11/09/22 23:00 103 H 25 H 107/59 L 11/09/22 22:50 100 H 29 H 95/50 L 11/09/22 22:49 11/09/22 22:00 112 H 29 H 127/71 11/09/22 21:45 113 H 33 H 11/09/22 21:30 117 H 24 129/66 11/09/22 22:51 38.2 C H 11/09/22 22:15 38.8 C H 11/09/22 22:00 39.3 C H 11/09/22 21:15 110 H 35 H 142/67 H 11/09/22 21:00 110 H 33 H 126/83 11/09/22 20:46 121 H 22 136/84 11/09/22 20:45 122 H 29 H 11/09/22 20:31 113 H 29 H 187/99 H 11/09/22 20:30 109 H 24 11/09/22 20:15 112 H 29 H 11/09/22 20:10 111 H 26 H 11/09/22 20:40 39.2 C H 119 H 22 187/99 H 11/09/22 20:10 111 H 11/09/22 20:04 37.3 C 11/09/22 20:03 116 H 26 H 144/64 H 11/09/22 20:01 116 H 28 H 11/09/22 19:15 37.7 C H 128 H 20 135/65 Pulse Ox O2 Del Method O2 Flow Rate 11/09/22 23:25 11/09/22 23:14 CPAP 11/09/22 23:14 93 Room Air 11/10/22 00:32 92 21 11/09/22 23:00 92 Room Air 11/09/22 22:50 89 L 11/09/22 22:49 89 L Room Air 11/09/22 22:00 89 L 11/09/22 21:45 90 11/09/22 21:30 11/09/22 22:51 11/09/22 22:15 11/09/22 22:00 11/09/22 21:15 95 Room Air 11/09/22 21:00 94 11/09/22 20:46 95 11/09/22 20:45 11/09/22 20:31 97 11/09/22 20:30 97 11/09/22 20:15 93 11/09/22 20:10 93 11/09/22 20:40 94 Room Air 11/09/22 20:10 11/09/22 20:04 08/05/23 20:03 93 Room Air 11/09/22 20:01 93 Room Air 11/09/22 19:15 94 Room Air Laboratory Results Laboratory Results WBC 14.76 K/ul (4.8-10.8) H 11/09/22 19:50 RBC 4.01 M/uL (4.70-6.10) L 11/09/22 19:50 Hgb 12.4 g/dl (14.0-18.0) L 11/09/22 19:50 Hct 36.4 % (42.0-52.0) L 11/09/22 19:50 MCV 90.8 fL (80.0-100.0) 11/09/22 19:50 MCH 30.9 pg (25.0-34.0) 11/09/22 19:50 MCHC 34.1 g/dL (32.0-36.0) 11/09/22 19:50 RDW Std Deviation 41.9 fL (36.4-46.3) 11/09/22 19:50 RDW Coeff of Boyd 12.7 % (11.5-14.5) 11/09/22 19:50 Plt Count 203 K/uL (130-400) 11/09/22 19:50 MPV 10.4 fL (9.4-12.4) 11/09/22 19:50 Immature Gran % (Auto) 0.5 % 11/09/22 19:50 Neut % (Auto) 82.5 % 11/09/22 19:50 Lymph % (Auto) 6.6 % 11/09/22 19:50 [place] % (Auto) 8.8 % 11/09/22 19:50 Eos % (Auto) 1.3 % 11/09/22 19:50 Baso % (Auto) 0.3 % 11/09/22 19:50 Neut # (Auto) 12.17 K/uL (1.40-6.50) H 11/09/22 19:50 Lymph # (Auto) 0.98 K/uL (1.2-3.4) L 11/09/22 19:50 [place] # (Auto) 1.30 K/uL (0.11-0.59) H 11/09/22 19:50 Eos # (Auto) 0.19 K/uL (0-0.50) 11/09/22 19:50 Baso # (Auto) 0.05 K/uL (0-0.2) 11/09/22 19:50 Immature Gran # (Auto) 0.07 K/uL (0.01-0.20) 11/09/22 19:50 PT 11.5 Seconds (9.0-12.0) 11/09/22 19:50 INR 1.1 (0.9-1.1) 11/09/22 19:50 APTT 26.6 Seconds (21.0-31.0) 11/09/22 19:50 PTT Ratio 0.9 11/09/22 19:50 Sodium 135 mmol/L (136-145) L 11/09/22 19:50 Potassium 4.2 mmol/L (3.5-5.1) 11/09/22 19:50 Chloride 103 mmol/L (98-107) 11/09/22 19:50 Carbon Dioxide 23 mmol/L (21-32) 11/09/22 19:50 Anion Gap 9 (3-11) 11/09/22 19:50 BUN 13 mg/dl (6-23) 11/09/22 19:50 Creatinine 1.42 mg/dl (0.6-1.4) H 11/09/22 19:50 Est Cr Clr Drug Dosing 63.7 ml/min 11/09/22 19:50 Est GFR ( Amer) 59.6 ml/min 11/09/22 19:50 Est GFR (Non-Af Amer) 51.5 ml/min 11/09/22 19:50 BUN/Creatinine Ratio 9.2 (10-20) L 11/09/22 19:50 Glucose 211 mg/dl (70-99(Fasting)) H 11/09/22 19:50 POC Glucose 126 mg/dl (70-99) H 11/09/22 23:28 Lactate 2.5 mmol/L (0.4-2.0) H* 11/09/22 22:45 Calcium 10.1 mg/dl (8.6-10.3) 11/09/22 19:50 Magnesium 1.3 mg/dl (1.7-2.4) L 11/09/22 19:50 Total Bilirubin 0.8 mg/dl (0.2-1.0) 11/09/22 19:50 Direct Bilirubin 0.2 mg/dl (0-0.2) 11/09/22 19:50 AST 23 U/L (13-39) 11/09/22 19:50 ALT 28 U/L (7-52) 11/09/22 19:50 Alkaline Phosphatase 50 U/L (34-104) 11/09/22 19:50 Troponin I High Sens 8.8 pg/ml (0-20) 11/09/22 19:50 Total Protein 7.7 gm/dl (6.0-8.3) 11/09/22 19:50 Albumin 4.7 gm/dl (3.4-5.0) 11/09/22 19:50 Procalcitonin 0.28 ng/ml (0-0.5) 11/09/22 19:50 Urine Color Yellow 11/09/22 21:33 Urine Appearance Clear (Clear) 11/09/22 21:33 Urine pH 6.0 (4.5-7.5) 11/09/22 21:33 Ur Specific Earle 1.020 (1.000-1.030) 11/09/22 21:33 Urine Protein Negative (Negative) 11/09/22 21:33 Urine Glucose (UA) Negative (Negative) 11/09/22 21:33 Urine Ketones Trace (Negative) H 11/09/22 21:33 Urine Blood Trace (Negative) H 11/09/22 21:33 Urine Nitrite Positive (Negative) A 11/09/22 21:33 Urine Bilirubin Negative (Negative) 11/09/22 21:33 Urine Urobilinogen Negative (Negative) 11/09/22 21:33 Ur Leukocyte Esterase 2+ (Negative) H 11/09/22 21:33 Urine WBC (Auto) 10-30 /hpf (0-5) H 11/09/22 21:33 Urine RBC (Auto) 0-4 /hpf (0-4) 11/09/22 21:33 U Hyaline Cast (Auto) >30 /lpf (0-5) H 11/09/22 21:33 U Epithel Cells (Auto) 0-5 /lpf (0-5) 11/09/22 21:33 Urine Bacteria (Auto) 4+ (Negative) H 11/09/22 21:33 Impressions Chest X-Ray 11/09/22 19:25 SINGLE VIEW CHEST CLINICAL HISTORY: Sepsis. FINDINGS: 2 AP, portable, upright chest radiographs are compared to study dated 08/15/2022. The cardiomediastinal silhouette is unremarkable noting atherosclerotic calcification of the thoracic aorta. There is bibasilar scarring/atelectasis. No airspace consolidation or large pleural effusion is identified. No pneumothorax is seen. The bony thorax is grossly intact. IMPRESSION: No active disease in the chest. ACT 112: Negative or not required by law. Electronically signed by: Shaheen Nelson M.D. 11/09/2022 7:46 PM Code Status & VTE Plan Code Status Full code VTE Prophylaxis Plan VTE Prophylaxis will be ordered: Yes PG Care Time/CCT Total # of Minutes Spent Total Time Spent with Patient: Total time spent is greater than 50% in coordination of care (as documented) at patient's floor/unit and/or counseling patient: Coding Level of Care Code 27210 INT INP/OBS CARE 3/75MIN Diagnoses Sepsis due to urinary tract infection A41.9; N39.0 Uncontrolled type 2 diabetes mellitus with neurologic complication, with long- term current use of insulin E11.49; E11.65; Z79.4 Dyslipidemia E78.5 Severe obstructive sleep apnea G47.33 Hypertension I10 Hypomagnesemia E83.42 CKD (chronic kidney disease), stage III N18.30
[2022-11-10] MEDS ORDERED: SODIUM CHLORIDE 0.9% 1000ML 500 ML IV ONE ×2 (04:41→12:15)
[2022-11-10 05:50] LABS: Basophils # (auto) 0.04 K/uL (0-0.2); Basophils % (auto) 0.2 %; Eosinophils # (auto) 0.09 K/uL (0-0.50); Eosinophils % (auto) 0.5 %; Hematocrit (blood only) 30.9 % (42.0-52.0); Hemoglobin 10.4 g/dl (14.0-18.0); Immature Granulocytes # (auto) 0.08 K/uL (0.01-0.20); Immature Granulocytes % (auto) 0.5 %; Lymphocytes # (auto) 0.75 K/uL (1.2-3.4); Lymphocytes % (auto) 4.6 %; Mean Corpuscular Hemoglobin 30.9 pg (25.0-34.0); Mean Corpuscular Hgb Conc 33.7 g/dL (32.0-36.0); Mean Corpuscular Volume 91.7 fL (80.0-100.0); Mean Platelet Volume 10.2 fL (9.4-12.4); Monocytes # (auto) 1.18 K/uL (0.11-0.59); Monocytes % (auto) 7.2 %; Neutrophils # (auto) 14.29 K/uL (1.40-6.50); Platelet Count 150 K/uL (130-400); RDW Standard Deviation 42.5 fL (36.4-46.3); Red Blood Count 3.37 M/uL (4.70-6.10); White Blood Count 16.43 K/ul (4.8-10.8)
[2022-11-10 05:53] LABS: A calco-baum cmplx NotReported Not Detected (NotDetected); Bact fragilis Not Reported Not Detected (NotDetected); C auris Not Reported Not Detected (NotDetected); CTX-M Resistant Gene Not Detected (NotDetected); Calbicans Not Reported Not Detected (NotDetected); Candida glabrata Not Reported Not Detected (NotDetected); Candida krusei Not Reported Not Detected (NotDetected); Cneoformans/gatti Not Reported Not Detected (NotDetected); Cparapsilosis Not Reported Not Detected (NotDetected); Ctropicalis Not Reported Not Detected (NotDetected); E cloacae compx Not Reported Not Detected (NotDetected); Efaecalis Not Reported Not Detected (NotDetected); Efaecium Not Reported Not Detected (NotDetected); Enterobacterales DETECTED (NotDetected); Enterobacterales Not Reported DETECTED (NotDetected); Escherichia coli Not Reported DETECTED (NotDetected); H influenzae Not Reported Not Detected (NotDetected); IMP Resistant Gene Not Detected (NotDetected); K aerogenes Not Reported Not Detected (NotDetected); KPC Resistant Gene Not Detected (NotDetected); Koxytoca Not Reported Not Detected (NotDetected); Kpneumoniae grp Not Reported Not Detected (NotDetected); Lmonocyt Not Reported Not Detected (NotDetected); N meningitidis Not Reported Not Detected (NotDetected); NDM Resistant Gene Not Detected (NotDetected); OXA 48 Like Resistant Gene Not Detected (NotDetected); P aeruginosa Not Reported Not Detected (NotDetected); Proteus spp Not Reported Not Detected (NotDetected); Salmonella spp Not Reported Not Detected (NotDetected); Smarcescens Not Reported Not Detected (NotDetected); Staph lugdunensis Not Reported Not Detected (NotDetected); Staph spp. Not Reported Not Detected (NotDetected); Staphaureus Not Reported Not Detected (NotDetected); Staphepi Not Reported Not Detected (NotDetected); Stenmaltophilia Not Reported Not Detected (NotDetected); Strep agal(GrpB) Not Reported Not Detected (NotDetected); Strep pneum Not Reported Not Detected (NotDetected); Strep pyog (GrpA) Not Reported Not Detected (NotDetected); Strep spp Not Reported Not Detected (NotDetected); VIM Resistant Gene Not Detected (NotDetected); mcr-1 Colistin Resistant Gene Not Detected (NotDetected)
[2022-11-10 06:11] LABS: Albumin Level 3.5 gm/dl (3.4-5.0); Calcium 8.1 mg/dl (8.6-10.3); Creatinine Clr Calc Pharmacy 58.8 ml/min; Est GFR (African American) 53.7 ml/min; Est GFR (Non-African American) 46.3 ml/min; Magnesium 1.4 mg/dl (1.7-2.4); Phosphorus 3.1 mg/dl (2.5-4.9)
--- NOTE | 2022-11-10 07:14 | Electrocardiogram Report ---
Test Reason : Blood Pressure : / mmHG Vent. Rate : 121 BPM Atrial Rate : 121 BPM P-R Int : 134 ms QRS Dur : 076 ms QT Int : 298 ms P-R-T Axes : 061 040 054 degrees QTc Int : 423 ms Sinus tachycardia Otherwise normal ECG When compared with ECG of 15-AUG-2022 09:14, Vent. rate has increased BY 41 BPM Confirmed by Allen Nielsen ([id number]) on 11/10/2022 7:14:05 AM Referred By: REFERRED SELF Confirmed By:Raudel Nielsen
--- NOTE | 2022-11-10 07:40 | Hospitalist Progress Note ---
Date of Service November 10, 2022 Assessment & Plan (1) Sepsis due to urinary tract infection: (2) Kidney stones: (3) CKD (chronic kidney disease), stage III: (4) Pulmonary edema: (5) Uncontrolled type 2 diabetes mellitus with neurologic complication, with long-term current use of insulin: (6) Dyslipidemia: (7) Severe obstructive sleep apnea: (8) Hypertension: (9) Hypomagnesemia: (10) Anemia: Plan #Sepsis due to UTI/status post prostate biopsy yesterday- Status post 3.5 L normal saline in the ED + NSS mIV + 500cc additional NS today (total input ~7L with output not documented) Kidney stones noted on renal US - discussed with urology - since in kidney, no further interventions at this time No prostate biopsy results yet UCx and BCx from 11/09/22 with GNR and [employer] suggesting E.coli without resistance genes Zosyn changed to Ceftriaxone Note lactic acidosis but takes metformin, will hold further IVF - see below Hold lisinopril given low blood pressure overnight #Pulmonary edema Poor lung health at baseline with severe RAMILA, s/p lung surgery, and tobacco use Last echo from July 2017: Mild LVH, LVEF 55-60%, moderate Aortic valve sclerosis without stenosis, small pericardial effusion Total input ~7L with with output not documented likely leading to dyspnea, increased O2 requirement, pulmonary edema Check echo Diurese with 40mg IV Lasix Requiring 6L O2 and tachycardic - transferred to PCU #Diabetes mellitus- Hold metformin, standing orders for NovoLog at meals and Novolin N and Ozempic. Continue Lantus glargine 50 units subcu daily Placed on Accu-Cheks with NovoLog SSI A1c pending #Hypomagnesemia- Magnesium 1.3 on admission Monitor and replete as indicated #CKD- Baseline Cr around 1.38-1.4 Mild increase 11/10 s/p IVF, continue to monitor Hold lisinopril given increase in Cr #HTN Hold home lisinopril given increase in Cr and low BP overnight #Anemia Likely hemodilution, will trend daily and consider further eval if continues to decrease Admission and Anticipated Discharge Date Admission Date: November 09, 2022 Subjective Admitted overnight with sepsis due to UTI in setting of recent prostate biopsy. On initial evaluation this morning, patient denies any fevers or chills, chest pain, shortness of breath, lightheadedness or dizziness, significant abdominal pain, nausea, urinary concerns. However this afternoon patient worsened with increased shortness of breath with cough though remained without chest pain, fevers or chills, or lightheadedness/dizziness Physical Exam Physical Exam: On initial evaluation around 0900: General: Well-appearing, NAD HEENT: Normal conjunctivae Neck: Supple, no cervical LAD Cardiovascular: RRR, no +systolic murmur Pulmonary: CTAB, no W/R/R with mild decreased aeration throughout Abdomen: Soft, NT/ND, no guarding Extremities: Moving all extremities, no pedal edema Integumentary: No suspicious rash or lesion on exposed skin Neurologic: AAOx3, no focal deficits Psychiatric: Appropriate mood/affect On repeat evaluation around 1430: General: Ill-appearing, moderate distress HEENT: Normal conjunctivae, nasal canula in place Cardiovascular: Tachycardic, regular rhythm, no +systolic murmur Pulmonary: Diminished breath sounds throughout, especially at bases, no wheezes or rales Neurologic: AAOx3, no focal deficits Psychiatric: Appropriate mood/affect Results & Data Results & Data Vital Signs (Past 12 Hours) Vital Signs Temp Pulse Pulse Pulse Resp BP BP 11/10/22 07:16 73 11/10/22 06:04 92/56 L 11/10/22 04:32 92/42 L 11/10/22 04:24 11/10/22 03:57 36.6 C 77 18 73/42 L 11/09/22 23:25 98 H 11/09/22 23:14 11/09/22 23:14 36.7 C 109 H 18 11/10/22 00:32 103 H 24 11/09/22 23:00 103 H 25 H 107/59 L 11/09/22 22:50 100 H 29 H 95/50 L 11/09/22 22:49 11/09/22 22:00 112 H 29 H 127/71 11/09/22 21:45 113 H 33 H 11/09/22 21:30 117 H 24 129/66 11/09/22 22:51 38.2 C H 11/09/22 22:15 38.8 C H 11/09/22 22:00 39.3 C H 11/09/22 21:15 110 H 35 H 142/67 H 11/09/22 21:00 110 H 33 H 126/83 11/09/22 20:46 121 H 22 136/84 11/09/22 20:45 122 H 29 H 11/09/22 20:31 113 H 29 H 187/99 H 11/09/22 20:30 109 H 24 11/09/22 20:15 112 H 29 H 11/09/22 20:10 111 H 26 H 11/09/22 20:40 39.2 C H 119 H 22 11/09/22 20:10 111 H 11/09/22 20:04 37.3 C 11/09/22 20:03 116 H 26 H 144/64 H 11/09/22 20:01 116 H 28 H BP Pulse Ox O2 Del Method O2 Flow Rate 11/10/22 07:16 11/10/22 06:04 11/10/22 04:32 11/10/22 04:24 92/59 L 11/10/22 03:57 91/58 L 94 CPAP 11/09/22 23:25 11/09/22 23:14 CPAP 11/09/22 23:14 118/65 93 Room Air 11/10/22 00:32 92 21 11/09/22 23:00 92 Room Air 11/09/22 22:50 89 L 11/09/22 22:49 89 L Room Air 11/09/22 22:00 89 L 11/09/22 21:45 90 11/09/22 21:30 11/09/22 22:51 11/09/22 22:15 11/09/22 22:00 11/09/22 21:15 95 Room Air 11/09/22 21:00 94 11/09/22 20:46 95 11/09/22 20:45 11/09/22 20:31 97 11/09/22 20:30 97 11/09/22 20:15 93 11/09/22 20:10 93 11/09/22 20:40 187/99 H 94 Room Air 11/09/22 20:10 11/09/22 20:04 11/09/22 20:03 93 Room Air 11/09/22 20:01 93 Room Air Laboratory Results Note this WBC increased, hemoglobin decreased to 10.4, creatinine increased to 1.55, lactate increased to 2.7-->3.3, calcium low at 8.1, magnesium low to 1.4-->2.1 Diagnostic Findings CXR 11/10: FINDINGS: No pneumothorax. No pleural effusions. The cardiac silhouette remains mildly enlarged. There is mild interstitial/vascular thickening, right greater than left. This suggests mild asymmetric pulmonary edema. IMPRESSION: Developing asymmetric pulmonary edema. PG Care Time/CCT Total # of Minutes Spent Total Time Spent with Patient: Total time spent is greater than 50% in coordination of care (as documented) at patient's floor/unit and/or counseling patient: Coding Level of Care Code 55069 SUB INP/OBS CARE 3/50MIN Diagnoses Sepsis due to urinary tract infection A41.9; N39.0 Kidney stones N20.0 CKD (chronic kidney disease), stage III N18.30 Pulmonary edema J81.1 Uncontrolled type 2 diabetes mellitus with neurologic complication, with long- term current use of insulin E11.49; E11.65; Z79.4 Dyslipidemia E78.5 Severe obstructive sleep apnea G47.33 Hypertension I10 Hypomagnesemia E83.42 Anemia D64.9
[2022-11-10] MEDS ORDERED: MAGNESIUM SULFATE / D5W 1 GM/100 ML BAG IV SCH (07:45)
[2022-11-10] MEDS: TAMSULOSIN HCL 0.4 MG CAP PO SCH (08:20)
[2022-11-10] MEDS: CYANOCOBALAMIN (B-12) 500 MCG TABLET PO SCH (08:20)
[2022-11-10] MEDS: PANTOprazole 40 MG TAB PO SCH (08:20)
[2022-11-10] MEDS: OXYBUTYNIN CHLORIDE XL 5 MG TABCR PO SCH (08:20)
[2022-11-10] MEDS: CHOLECALCIFEROL 1,000 UNITS 25 MCG TAB PO SCH (08:20)
[2022-11-10] MEDS: INSULIN ASPART PER UNIT CHARGE SC SCH ×4 (08:22→22:05)
[2022-11-10] MEDS: LANTUS PER UNIT CHARGE SQ SCH (08:22)
[2022-11-10] MEDS ORDERED: lisinopril 20 MG TAB PO SCH (09:00)
[2022-11-10] MEDS ORDERED: FUROSEMIDE 40 MG/4 ML VIAL IV ONE (14:56)
--- NOTE | 2022-11-10 15:07 | XRay Report ---
XR chest 1V portable HISTORY: increased O2 req, shortness of breath COMPARISON: Chest 11/09/2022. FINDINGS: No pneumothorax. No pleural effusions. The cardiac silhouette remains mildly enlarged. Ther e is mild interstitial/vascular thickening, right greater than left. This suggests mild asymmetric pu lmonary edema. IMPRESSION: Developing asymmetric pulmonary edema. ACT 112: Negative or not required by law. Electronically signed by: Flynn Putnam M.D. 11/10/2022 3:06 PM
[2022-11-10] MEDS ORDERED: ACETAMINOPHEN 1,000 MG/100 ML VIAL IV STA (16:23)
[2022-11-10] MEDS ORDERED: ACETAMINOPHEN 10MG/ML Custom 1,000 MG in EMPTY BAG 0 ML IV PRN (18:14)
[2022-11-10] MEDS: cefTRIAXone SODIUM 2,000 MG in DEXTROSE 5% 50 ML IV SCH (18:15)
[2022-11-10] MEDS: ASPIRIN 81 MG ECTAB PO SCH (22:04)
[2022-11-10] MEDS: ATORVASTATIN 40 MG TAB PO SCH (22:04)
[2022-11-10] MEDS: AMITRIPTYLINE HCL 25 MG TAB PO SCH (22:04)
[2022-11-10] MEDS: ACETAMINOPHEN 1000 MG/100 ML IV IV PRN (22:04)
[2022-11-11 05:07] LABS: Basophils # (auto) 0.04 K/uL (0-0.2); Basophils % (auto) 0.4 %; Eosinophils # (auto) 0.01 K/uL (0-0.50); Eosinophils % (auto) 0.1 %; Hematocrit (blood only) 31.7 % (42.0-52.0); Hemoglobin 11.1 g/dl (14.0-18.0); Immature Granulocytes # (auto) 0.11 K/uL (0.01-0.20); Immature Granulocytes % (auto) 1.1 %; Lymphocytes # (auto) 0.55 K/uL (1.2-3.4); Lymphocytes % (auto) 5.4 %; Mean Corpuscular Hemoglobin 31.2 pg (25.0-34.0); Mean Platelet Volume 10.4 fL (9.4-12.4); Monocytes # (auto) 0.62 K/uL (0.11-0.59); Monocytes % (auto) 6.1 %; Neutrophils # (auto) 8.91 K/uL (1.40-6.50); Neutrophils % (auto) 86.9 %; Platelet Count 123 K/uL (130-400); RDW Coefficient of Variation 13.2 % (11.5-14.5); RDW Standard Deviation 43.6 fL (36.4-46.3); Red Blood Count 3.56 M/uL (4.70-6.10); White Blood Count 10.24 K/ul (4.8-10.8)
[2022-11-11 05:25] LABS: Albumin Level 3.8 gm/dl (3.4-5.0); BUN Creatinine Ratio 9.7 (10-20); Calcium 9.2 mg/dl (8.6-10.3); Creatinine Clr Calc Pharmacy 59.1 ml/min; Est GFR (African American) 54.1 ml/min; Est GFR (Non-African American) 46.7 ml/min; Magnesium 1.6 mg/dl (1.7-2.4); Phosphorus 2.2 mg/dl (2.5-4.9)
[2022-11-11 08:30] LABS: Estimated Average Glucose 154 mg/dl
[2022-11-11] MEDS: TAMSULOSIN HCL 0.4 MG CAP PO SCH (09:03)
[2022-11-11] MEDS: CHOLECALCIFEROL 1,000 UNITS 25 MCG TAB PO SCH (09:03)
[2022-11-11] MEDS: PANTOprazole 40 MG TAB PO SCH (09:03)
[2022-11-11] MEDS: OXYBUTYNIN CHLORIDE XL 5 MG TABCR PO SCH (09:04)
[2022-11-11] MEDS: NICOTINE 21 MG/24 HR TDSY TD SCH (09:04)
[2022-11-11] MEDS: CYANOCOBALAMIN (B-12) 500 MCG TABLET PO SCH (09:04)
[2022-11-11] MEDS: INSULIN ASPART PER UNIT CHARGE SC SCH ×4 (09:08→20:51)
[2022-11-11] MEDS: ACETAMINOPHEN 1000 MG/100 ML IV IV PRN ×2 (09:08→18:03)
[2022-11-11] MEDS: LANTUS PER UNIT CHARGE SQ SCH (09:08)
[2022-11-11] MEDS: ENOXAPARIN INJ 40 MG/0.4 ML SYR SQ SCH (16:35)
--- NOTE | 2022-11-11 16:55 | Hospitalist Progress Note ---
Date of Service November 11, 2022 Assessment & Plan (1) Sepsis due to urinary tract infection: Plan: Present on admission. E. coli isolated in the urine and gram-negative rods in the blood which probably are E. coli. Final identification and sensitivities pending. He remains on intravenous Rocephin (2) Pulmonary edema: Plan: From excessive fluid resuscitation given in the ED. Parenteral Lasix diuresis ongoing. Monitor intake and output. Repeat portable chest x-ray tomorrowNovember 12. (3) Acute respiratory failure with hypoxia: Plan: Supplemental oxygen per nasal cannula to maintain saturation greater than 90%. Wean off as tolerated. Treat underlying pulmonary edema (4) Kidney stones: Plan: Stable. No need for any intervention at this point in time (5) CKD (chronic kidney disease), stage III: Plan: Stable. Monitor intake and output. Serial labs (6) Type 2 diabetes mellitus: Plan: ADA diet. Metformin has been resumed. Sliding scale coverage as needed (7) Dyslipidemia: Plan: Stable. Continue statin therapy (8) Severe obstructive sleep apnea: Plan: He stable. CPAP as needed (9) Hypertension: Plan: Blood pressure has risen significantly since admission. Lisinopril has been restarted (10) Hypomagnesemia: Plan: Parenteral replacement. Serial lab (11) Anemia: Plan: Chronic. No evidence of GI bleeding. Serial labs Plan Hopeful discharge to home later this week Admission and Anticipated Discharge Date Admission Date: November 09, 2022 Subjective Alert and oriented. is at the bedside. No acute distress. E. coli isolated in the urine and gram-negative rods in the blood which probably are E. coli. Final identification and sensitivities pending. He is now on Rocephin. He remains on oxygen. Continue parenteral Lasix diuresis for the pulmonary edema probably brought on from excessive IV fluids given in the ED. Cardiac echo pending. We will repeat portable chest x-ray tomorrow, November 12 Review of Systems Review of Systems: Constitutional-no fever or chills ENT-no blurred vision, no double vision, no epistaxis, no sore throat Respiratory-no cough, no wheezing. Shortness of breath at rest and with exertion Cardiac-no palpitations, no chest pain, no syncope GI-no nausea, vomiting, diarrhea, melena, hematochezia -no urinary retention, no urinary incontinence, no dysuria, no hematuria Musculoskeletal-no joint pain, no muscle tenderness Skin-no bruising, no rashes, no pruritus Neuro-no isolated weakness, no paresthesia Psych-no depression, no anxiety Physical Exam Physical Exam: General-alert and oriented x3, no fevers, no chills HEENT-head atraumatic and normocephalic, pupils equal and reactive to light, extraocular muscles intact Neck-no lymphadenopathy or thyromegaly, trachea midline Chest-bibasilar inspiratory rales. No wheezing. No dullness to percussion Cardiac-regular rate and rhythm, normal S1 and S2 Abdomen-normal bowel sounds, nontender, no hepatosplenomegaly Extremities-no cyanosis, clubbing, or edema Neuro-cranial nerves II through XII intact, motor and sensory function within normal limits, strength symmetrical with generalized weakness , no focal deficits Psych-normal affect, normal mood Results & Data Results & Data Vital Signs (Past 12 Hours) Vital Signs Temp Pulse Resp BP BP Pulse Ox O2 Del Method 11/11/22 14:45 37.8 C H 117 H 16 164/83 H 92 Room Air 11/11/22 11:16 36.6 C 83 16 139/68 95 Nasal Cannula 11/11/22 07:38 37.2 C 101 H 20 121/76 95 Nasal Cannula 11/11/22 06:33 39.1 C H O2 Flow Rate 11/11/22 14:45 11/11/22 11:16 3 11/11/22 07:38 3 11/11/22 06:33 Laboratory Results 11/11/22 04:44 11/11/22 04:44 PG Care Time/CCT Total # of Minutes Spent Total Time Spent with Patient: Total time spent is greater than 50% in coordination of care (as documented) at patient's floor/unit and/or counseling patient: Coding Level of Care Code 13799 SUB INP/OBS CARE 3/50MIN Diagnoses Sepsis due to urinary tract infection A41.9; N39.0 Pulmonary edema J81.1 Acute respiratory failure with hypoxia J96.01 Kidney stones N20.0 CKD (chronic kidney disease), stage III N18.30 Type 2 diabetes mellitus E11.9 Dyslipidemia E78.5 Severe obstructive sleep apnea G47.33 Hypertension I10 Hypomagnesemia E83.42 Anemia D64.9
[2022-11-11] MEDS ORDERED: SODIUM PHOSPHATE 3 MMOL/1 ML INFUSION IV STA (16:58)
[2022-11-11] MEDS ORDERED: SODIUM PHOSPHATE 15 MMOL in SODIUM CHLORIDE 0.9% 250 ML IV ONE (17:15)
[2022-11-11] MEDS: MAGNESIUM SULFATE / D5W 1 GM/100 ML BAG IV SCH ×2 (18:01→20:52)
[2022-11-11] MEDS: cefTRIAXone SODIUM 2,000 MG in DEXTROSE 5% 50 ML IV SCH (18:01)
[2022-11-11] MEDS: metFORMIN HCL 500 MG TAB PO SCH (18:02)
--- NOTE | 2022-11-11 19:06 | XCELERA ---
[id number]
[2022-11-11] MEDS: ATORVASTATIN 40 MG TAB PO SCH (20:52)
[2022-11-11] MEDS: ASPIRIN 81 MG ECTAB PO SCH (20:52)
[2022-11-11] MEDS: FUROSEMIDE 40 MG/4 ML VIAL IV SCH (20:53)
[2022-11-11] MEDS: AMITRIPTYLINE HCL 25 MG TAB PO SCH (20:53)
[2022-11-12] MEDS: ACETAMINOPHEN 325 MG TAB PO PRN ×4 (01:10→21:59)
[2022-11-12 04:50] LABS: Albumin Level 3.6 gm/dl (3.4-5.0); BUN Creatinine Ratio 13.4 (10-20); Basophils # (auto) 0.03 K/uL (0-0.2); Basophils % (auto) 0.3 %; Calcium 9.3 mg/dl (8.6-10.3); Creatinine Clr Calc Pharmacy 64.1 ml/min; Eosinophils # (auto) 0.13 K/uL (0-0.50); Eosinophils % (auto) 1.5 %; Est GFR (African American) 59.6 ml/min; Est GFR (Non-African American) 51.5 ml/min; Hematocrit (blood only) 30.5 % (42.0-52.0); Hemoglobin 10.5 g/dl (14.0-18.0); Immature Granulocytes # (auto) 0.08 K/uL (0.01-0.20); Immature Granulocytes % (auto) 0.9 %; Lymphocytes % (auto) 10.3 %; Magnesium 1.8 mg/dl (1.7-2.4); Mean Corpuscular Hemoglobin 30.3 pg (25.0-34.0); Mean Corpuscular Hgb Conc 34.4 g/dL (32.0-36.0); Mean Corpuscular Volume 88.2 fL (80.0-100.0); Mean Platelet Volume 10.8 fL (9.4-12.4); Monocytes # (auto) 0.84 K/uL (0.11-0.59); Monocytes % (auto) 9.6 %; Neutrophils % (auto) 77.4 %; Platelet Count 141 K/uL (130-400); Potassium 3.7 mmol/L (3.5-5.1); RDW Coefficient of Variation 13.2 % (11.5-14.5); RDW Standard Deviation 42.4 fL (36.4-46.3); Red Blood Count 3.46 M/uL (4.70-6.10); White Blood Count 8.78 K/ul (4.8-10.8)
[2022-11-12] MEDS: TAMSULOSIN HCL 0.4 MG CAP PO SCH (07:55)
[2022-11-12] MEDS: CYANOCOBALAMIN (B-12) 500 MCG TABLET PO SCH (07:56)
[2022-11-12] MEDS: PANTOprazole 40 MG TAB PO SCH (07:56)
[2022-11-12] MEDS: CHOLECALCIFEROL 1,000 UNITS 25 MCG TAB PO SCH (07:56)
[2022-11-12] MEDS: OXYBUTYNIN CHLORIDE XL 5 MG TABCR PO SCH (07:56)
[2022-11-12] MEDS: metFORMIN HCL 500 MG TAB PO SCH ×2 (07:57→16:36)
[2022-11-12] MEDS: NICOTINE 21 MG/24 HR TDSY TD SCH (07:58)
[2022-11-12] MEDS: ENOXAPARIN INJ 40 MG/0.4 ML SYR SQ SCH (07:59)
[2022-11-12] MEDS: FUROSEMIDE 40 MG/4 ML VIAL IV SCH ×2 (07:59→20:14)
[2022-11-12] MEDS: INSULIN ASPART PER UNIT CHARGE SC SCH ×4 (08:11→20:22)
[2022-11-12] MEDS: LANTUS PER UNIT CHARGE SQ SCH (08:11)
--- NOTE | 2022-11-12 08:43 | XRay Report ---
SINGLE VIEW CHEST CLINICAL HISTORY: Pulmonary edema. FINDINGS: An AP, portable, upright chest radiograph is compared to study dated 11/10/2022. Correlation is made with chest CT dated 04/16/2022. The examination is degraded by portable technique and apical l ordotic positioning. The heart is mildly enlarged noting atherosclerotic calcification of the thoraci c aorta. There is mild pulmonary vascular congestion. This has improved from previous. Emphysema and chronic interstitial thickening is unchanged. There is bibasilar scarring/atelectasis. No airspace co nsolidation or large pleural effusion is identified. No pneumothorax is seen. The bony thorax is lyndsey sly intact. IMPRESSION: Cardiomegaly and emphysema with mild pulmonary vascular congestion. This has improved fro m previous. ACT 112: Negative or not required by law. Electronically signed by: Shaheen Nelson M.D. 11/12/2022 8:41 AM
[2022-11-12] MEDS: lisinopril 20 MG TAB PO SCH (12:29)
--- NOTE | 2022-11-12 15:28 | Hospitalist Progress Note ---
Date of Service November 12, 2022 Assessment & Plan (1) Sepsis due to urinary tract infection: Plan: Present on admission. E. coli isolated in the urine and also in the blood. Sensitive to Rocephin. We will switch to oral antibiotic at discharge to complete a 2-week coursel (2) Pulmonary edema: Plan: From excessive fluid resuscitation given in the ED. Parenteral Lasix diuresis ongoing. Monitor intake and output. Chest x-ray repeated today, November 12, looks better. (3) Acute respiratory failure with hypoxia: Plan: Supplemental oxygen per nasal cannula to maintain saturation greater than 90%. Wean off as tolerated. Treat underlying pulmonary edema (4) Kidney stones: Plan: Stable. No need for any intervention at this point in time (5) CKD (chronic kidney disease), stage III: Plan: Stable. Monitor intake and output. Serial labs (6) Type 2 diabetes mellitus: Plan: ADA diet. Metformin has been resumed. Sliding scale coverage as needed (7) Dyslipidemia: Plan: Stable. Continue statin therapy (8) Severe obstructive sleep apnea: Plan: He stable. CPAP as needed (9) Hypertension: Plan: Blood pressure has risen significantly since admission. Lisinopril has been restarted. Now improved (10) Hypomagnesemia: Plan: Parenteral replacement. Serial lab. Corrected (11) Anemia: Plan: Chronic. No evidence of GI bleeding. Serial labs Plan Hopeful discharge to home later this week. Hopefully in the next day or 2 Admission and Anticipated Discharge Date Admission Date: November 09, 2022 Subjective Alert and oriented. No distress. Continued brisk diuresis with IV Lasix. He is only requiring 2 L of oxygen at this time. Hopefully this can be weaned off soon. Chest x-ray done today, November 12, looks better. OT and PT assessments requested. He remains on intravenous Rocephin. E. coli isolated in the blood and urine. It appears the sepsis is due to the UTI. Cardiac echo reveals skip l ejection fraction with moderate LVH, diastolic dysfunction, mild to moderate aortic valve stenosis which will require periodic outpatient evaluation. Hopefully home later this week in 1 to 2 days Review of Systems Review of Systems: Constitutional-no fever or chills ENT-no blurred vision, no double vision, no epistaxis, no sore throat Respiratory-no cough, no wheezing. Shortness of breath at rest and with exertion Cardiac-no palpitations, no chest pain, no syncope GI-no nausea, vomiting, diarrhea, melena, hematochezia -no urinary retention, no urinary incontinence, no dysuria, no hematuria Musculoskeletal-no joint pain, no muscle tenderness Skin-no bruising, no rashes, no pruritus Neuro-no isolated weakness, no paresthesia Psych-no depression, no anxiety Physical Exam Physical Exam: General-alert and oriented x3, no fevers, no chills HEENT-head atraumatic and normocephalic, pupils equal and reactive to light, extraocular muscles intact Neck-no lymphadenopathy or thyromegaly, trachea midline Chest-bibasilar inspiratory rales have improved. No wheezing. No dullness to percussion Cardiac-regular rate and rhythm, normal S1 and S2 Abdomen-normal bowel sounds, nontender, no hepatosplenomegaly Extremities-no cyanosis, clubbing, or edema Neuro-cranial nerves II through XII intact, motor and sensory function within normal limits, strength symmetrical with generalized weakness , no focal deficits Psych-normal affect, normal mood Results & Data Results & Data Vital Signs (Past 12 Hours) Vital Signs Temp Pulse Resp BP Pulse Ox O2 Del Method O2 Del Method 11/12/22 12:00 38.1 C H 11/12/22 08:00 Nasal Cannula 11/12/22 08:00 Nasal Cannula 11/12/22 08:00 36.8 C 11/12/22 06:01 36.7 C 78 15 96 11/12/22 06:01 157/66 H 11/12/22 06:00 36.7 C 77 16 97 11/12/22 05:01 36.8 C 82 19 90 11/12/22 05:01 120/63 11/12/22 04:00 37.0 C 85 18 96 11/12/22 04:00 88/52 L 11/12/22 04:00 36.9 C O2 Flow Rate O2 Flow Rate 11/12/22 12:00 11/12/22 08:00 2 11/12/22 08:00 2 11/12/22 08:00 11/12/22 06:01 11/12/22 06:01 11/12/22 06:00 11/12/22 05:01 11/12/22 05:01 11/12/22 04:00 11/12/22 04:00 11/12/22 04:00 Laboratory Results 11/12/22 04:16 11/12/22 04:16 PG Care Time/CCT Total # of Minutes Spent Total Time Spent with Patient: Total time spent is greater than 50% in coordination of care (as documented) at patient's floor/unit and/or counseling patient: Coding Level of Care Code 87179 SUB INP/OBS CARE 3/50MIN Diagnoses Sepsis due to urinary tract infection A41.9; N39.0 Pulmonary edema J81.1 Acute respiratory failure with hypoxia J96.01 Kidney stones N20.0 CKD (chronic kidney disease), stage III N18.30 Type 2 diabetes mellitus E11.9 Dyslipidemia E78.5 Severe obstructive sleep apnea G47.33 Hypertension I10 Hypomagnesemia E83.42 Anemia D64.9
[2022-11-12] MEDS: cefTRIAXone SODIUM 2,000 MG in DEXTROSE 5% 50 ML IV SCH (16:44)
[2022-11-12] MEDS: AMITRIPTYLINE HCL 25 MG TAB PO SCH (20:13)
[2022-11-12] MEDS: ATORVASTATIN 40 MG TAB PO SCH (20:13)
[2022-11-12] MEDS: ASPIRIN 81 MG ECTAB PO SCH (20:13)
[2022-11-13 05:27] LABS: Basophils # (auto) 0.05 K/uL (0-0.2); Basophils % (auto) 0.5 %; Eosinophils # (auto) 0.36 K/uL (0-0.50); Eosinophils % (auto) 3.6 %; Hemoglobin 10.7 g/dl (14.0-18.0); Immature Granulocytes # (auto) 0.09 K/uL (0.01-0.20); Immature Granulocytes % (auto) 0.9 %; Lymphocytes # (auto) 1.46 K/uL (1.2-3.4); Lymphocytes % (auto) 14.6 %; Mean Corpuscular Hemoglobin 30.1 pg (25.0-34.0); Mean Corpuscular Hgb Conc 33.4 g/dL (32.0-36.0); Mean Corpuscular Volume 89.9 fL (80.0-100.0); Mean Platelet Volume 10.5 fL (9.4-12.4); Monocytes # (auto) 1.31 K/uL (0.11-0.59); Monocytes % (auto) 13.1 %; Neutrophils # (auto) 6.74 K/uL (1.40-6.50); Neutrophils % (auto) 67.3 %; Platelet Count 170 K/uL (130-400); RDW Coefficient of Variation 13.1 % (11.5-14.5); RDW Standard Deviation 43.3 fL (36.4-46.3); Red Blood Count 3.56 M/uL (4.70-6.10); White Blood Count 10.01 K/ul (4.8-10.8)
[2022-11-13 05:29] LABS: BUN Creatinine Ratio 16.7 (10-20); Calcium 9.7 mg/dl (8.6-10.3); Creatinine Clr Calc Pharmacy 61.7 ml/min; Est GFR (African American) 55.8 ml/min; Est GFR (Non-African American) 48.2 ml/min; Potassium 3.5 mmol/L (3.5-5.1)
[2022-11-13] MEDS: metFORMIN HCL 500 MG TAB PO SCH ×2 (08:13→16:33)
[2022-11-13] MEDS: INSULIN ASPART PER UNIT CHARGE SC SCH ×4 (08:13→21:36)
[2022-11-13] MEDS: ENOXAPARIN INJ 40 MG/0.4 ML SYR SQ SCH (08:14)
[2022-11-13] MEDS: CYANOCOBALAMIN (B-12) 500 MCG TABLET PO SCH (08:14)
[2022-11-13] MEDS: CHOLECALCIFEROL 1,000 UNITS 25 MCG TAB PO SCH (08:14)
[2022-11-13] MEDS: NICOTINE 21 MG/24 HR TDSY TD SCH (08:15)
[2022-11-13] MEDS: lisinopril 20 MG TAB PO SCH (08:15)
[2022-11-13] MEDS: OXYBUTYNIN CHLORIDE XL 5 MG TABCR PO SCH (08:15)
[2022-11-13] MEDS: PANTOprazole 40 MG TAB PO SCH (08:16)
[2022-11-13] MEDS: FUROSEMIDE 40 MG/4 ML VIAL IV SCH ×2 (08:16→20:45)
[2022-11-13] MEDS: TAMSULOSIN HCL 0.4 MG CAP PO SCH (08:16)
[2022-11-13] MEDS: LANTUS PER UNIT CHARGE SQ SCH (08:18)
[2022-11-13] MEDS: POTASSIUM CHLORIDE CRTAB 20 MEQ TABCR PO SCH ×2 (10:42→20:44)
[2022-11-13] MEDS: ACETAMINOPHEN 325 MG TAB PO PRN ×2 (11:31→21:37)
--- NOTE | 2022-11-13 13:54 | Hospitalist Progress Note ---
Date of Service November 13, 2022 Assessment & Plan (1) Sepsis due to urinary tract infection: Plan: Present on admission. E. coli isolated in the urine and also in the blood. Sensitive to Rocephin. We will switch to oral antibiotic at discharge to complete a 2-week course (2) Pulmonary edema: Plan: From excessive fluid resuscitation given in the ED. Parenteral Lasix diuresis ongoing. Monitor intake and output. Repeat chest x-ray again tomorrow, November 14 (3) Acute respiratory failure with hypoxia: Plan: Supplemental oxygen per nasal cannula to maintain saturation greater than 90%. Wean off as tolerated. Treat underlying pulmonary edema. Improving (4) Kidney stones: Plan: Stable. No need for any intervention at this point in time (5) CKD (chronic kidney disease), stage III: Plan: Stable. Monitor intake and output. Serial labs (6) Type 2 diabetes mellitus: Plan: ADA diet. Metformin has been resumed. Sliding scale coverage as needed (7) Dyslipidemia: Plan: Stable. Continue statin therapy (8) Severe obstructive sleep apnea: Plan: He stable. CPAP as needed (9) Hypertension: Plan: Blood pressure has risen significantly since admission. Lisinopril has been restarted. Now improved (10) Hypomagnesemia: Plan: Parenteral replacement. Serial lab. Corrected (11) Anemia: Plan: Chronic. No evidence of GI bleeding. Serial labs Plan Hopeful discharge to home later this week. Possibly tomorrow, November 14 Admission and Anticipated Discharge Date Admission Date: November 09, 2022 Subjective Alert and oriented. No complaints. He continues to improve. Continued brisk diuresis with intravenous Lasix. Will repeat chest x-ray again tomorrow, November 14. Oral potassium replacement initiated. Creatinine stable at 1.5. Chest x- ray done yesterday, November 12, looked better. Will repeat chest x-ray again tomorrow. I suspect the oxygen will soon be weaned off. Hopefully home soon. He is ambulating independently Review of Systems Review of Systems: Constitutional-no fever or chills ENT-no blurred vision, no double vision, no epistaxis, no sore throat Respiratory-no cough, no wheezing. Shortness of breath at rest and with exertion Cardiac-no palpitations, no chest pain, no syncope GI-no nausea, vomiting, diarrhea, melena, hematochezia -no urinary retention, no urinary incontinence, no dysuria, no hematuria Musculoskeletal-no joint pain, no muscle tenderness Skin-no bruising, no rashes, no pruritus Neuro-no isolated weakness, no paresthesia Psych-no depression, no anxiety Physical Exam Physical Exam: General-alert and oriented x3, no fevers, no chills HEENT-head atraumatic and normocephalic, pupils equal and reactive to light, extraocular muscles intact Neck-no lymphadenopathy or thyromegaly, trachea midline Chest-bibasilar inspiratory rales have improved. No wheezing. No dullness to percussion Cardiac-regular rate and rhythm, normal S1 and S2 Abdomen-normal bowel sounds, nontender, no hepatosplenomegaly Extremities-no cyanosis, clubbing, or edema Neuro-cranial nerves II through XII intact, motor and sensory function within normal limits, strength symmetrical with generalized weakness , no focal deficits Psych-normal affect, normal mood Results & Data Results & Data Vital Signs (Past 12 Hours) Vital Signs Temp Pulse Pulse Pulse Resp BP BP 11/13/22 13:01 11/13/22 12:00 108 H 27 H 11/13/22 11:26 111/75 11/13/22 11:26 104 H 15 11/13/22 11:34 37.8 C H 100 H 20 11/13/22 10:00 93 H 22 11/13/22 09:00 95 H 21 11/13/22 08:00 101 H 21 11/13/22 07:00 74 21 11/13/22 08:00 11/13/22 08:00 37.6 C H 11/13/22 08:00 11/13/22 08:00 11/13/22 08:00 79 11/13/22 04:00 37.1 C 77 14 95/53 L 11/13/22 02:44 79 16 BP Pulse Ox Pulse Ox Pulse Ox O2 Del Method O2 Del Method O2 Flow Rate 11/13/22 13:01 94 92 11/13/22 12:00 96 11/13/22 11:26 11/13/22 11:26 96 11/13/22 11:34 111/75 93 Nasal Cannula 4 11/13/22 10:00 93 11/13/22 09:00 85 L 11/13/22 08:00 94 11/13/22 07:00 93 11/13/22 08:00 112/66 11/13/22 08:00 11/13/22 08:00 Nasal Cannula 2 11/13/22 08:00 Nasal Cannula 11/13/22 08:00 11/13/22 04:00 94 CPAP 2 11/13/22 02:44 88 L 2 O2 Flow Rate O2 Flow Rate O2 Flow Rate 11/13/22 13:01 4 4 11/13/22 12:00 11/13/22 11:26 11/13/22 11:26 11/13/22 11:34 11/13/22 10:00 11/13/22 09:00 11/13/22 08:00 11/13/22 07:00 11/13/22 08:00 11/13/22 08:00 11/13/22 08:00 11/13/22 08:00 2 11/13/22 08:00 11/13/22 04:00 11/13/22 02:44 Laboratory Results 11/13/22 04:56 11/13/22 04:56 PG Care Time/CCT Total # of Minutes Spent Total Time Spent with Patient: Total time spent is greater than 50% in coordination of care (as documented) at patient's floor/unit and/or counseling patient: Coding Level of Care Code 48402 SUB INP/OBS CARE 3/50MIN Diagnoses Sepsis due to urinary tract infection A41.9; N39.0 Pulmonary edema J81.1 Acute respiratory failure with hypoxia J96.01 Kidney stones N20.0 CKD (chronic kidney disease), stage III N18.30 Type 2 diabetes mellitus E11.9 Dyslipidemia E78.5 Severe obstructive sleep apnea G47.33 Hypertension I10 Hypomagnesemia E83.42 Anemia D64.9
[2022-11-13] MEDS: cefTRIAXone SODIUM 2,000 MG in DEXTROSE 5% 50 ML IV SCH (17:21)
[2022-11-13] MEDS: ASPIRIN 81 MG ECTAB PO SCH (20:45)
[2022-11-13] MEDS: ATORVASTATIN 40 MG TAB PO SCH (20:45)
[2022-11-13] MEDS: AMITRIPTYLINE HCL 25 MG TAB PO SCH (20:45)
[2022-11-14 06:07] LABS: BUN Creatinine Ratio 20.5 (10-20); Calcium 9.8 mg/dl (8.6-10.3); Creatinine Clr Calc Pharmacy 60.3 ml/min; Est GFR (African American) 55.4 ml/min; Est GFR (Non-African American) 47.8 ml/min; Potassium 3.8 mmol/L (3.5-5.1)
[2022-11-14 06:15] LABS: Basophils # (auto) 0.07 K/uL (0-0.2); Basophils % (auto) 0.8 %; Eosinophils % (auto) 4.6 %; Hematocrit (blood only) 32.2 % (42.0-52.0); Hemoglobin 10.8 g/dl (14.0-18.0); Immature Granulocytes # (auto) 0.17 K/uL (0.01-0.20); Immature Granulocytes % (auto) 1.9 %; Lymphocytes # (auto) 1.79 K/uL (1.2-3.4); Lymphocytes % (auto) 20.4 %; Mean Corpuscular Hemoglobin 30.3 pg (25.0-34.0); Mean Corpuscular Hgb Conc 33.5 g/dL (32.0-36.0); Mean Corpuscular Volume 90.2 fL (80.0-100.0); Mean Platelet Volume 10.2 fL (9.4-12.4); Monocytes % (auto) 13.7 %; Neutrophils # (auto) 5.14 K/uL (1.40-6.50); Neutrophils % (auto) 58.6 %; Platelet Count 207 K/uL (130-400); RDW Coefficient of Variation 13.1 % (11.5-14.5); RDW Standard Deviation 43.4 fL (36.4-46.3); Red Blood Count 3.57 M/uL (4.70-6.10); White Blood Count 8.77 K/ul (4.8-10.8)
--- NOTE | 2022-11-14 07:57 | XRay Report ---
SINGLE VIEW CHEST CLINICAL HISTORY: Pulmonary edema. FINDINGS: An AP, portable, upright chest radiograph is compared to study dated 11/12/2022 and correlate d with chest CT dated 04/16/2022. The examination is degraded by portable technique and apical lordoti c positioning. The heart is mildly enlarged noting atherosclerotic calcification of the thoracic aort a. Emphysema and chronic interstitial thickening is similar to previous. There is mild pulmonary vasc ular congestion. Scarring/atelectasis is noted at the lung bases. No airspace consolidation or large pleural effusion is identified. No pneumothorax is seen. The skeletal structures are osteopenic. The bony thorax is grossly intact. IMPRESSION: Cardiomegaly and emphysema with mild pulmonary vascular congestion. This is similar to pr evious. ACT 112: Negative or not required by law. Electronically signed by: Shaheen Nelson M.D. 11/14/2022 7:54 AM
[2022-11-14] MEDS: LANTUS PER UNIT CHARGE SQ SCH (07:59)
[2022-11-14] MEDS: INSULIN ASPART PER UNIT CHARGE SC SCH ×2 (08:00→12:10)
[2022-11-14] MEDS: POTASSIUM CHLORIDE CRTAB 20 MEQ TABCR PO SCH (08:02)
[2022-11-14] MEDS: ENOXAPARIN INJ 40 MG/0.4 ML SYR SQ SCH (08:02)
[2022-11-14] MEDS: CHOLECALCIFEROL 1,000 UNITS 25 MCG TAB PO SCH (08:02)
[2022-11-14] MEDS: OXYBUTYNIN CHLORIDE XL 5 MG TABCR PO SCH (08:02)
[2022-11-14] MEDS: TAMSULOSIN HCL 0.4 MG CAP PO SCH (08:02)
[2022-11-14] MEDS: lisinopril 20 MG TAB PO SCH (08:02)
[2022-11-14] MEDS: metFORMIN HCL 500 MG TAB PO SCH (08:02)
[2022-11-14] MEDS: FUROSEMIDE 40 MG/4 ML VIAL IV SCH (08:02)
[2022-11-14] MEDS: CYANOCOBALAMIN (B-12) 500 MCG TABLET PO SCH (08:02)
[2022-11-14] MEDS: PANTOprazole 40 MG TAB PO SCH (08:02)
[2022-11-14] MEDS: NICOTINE 21 MG/24 HR TDSY TD SCH (08:03)
--- NOTE | 2022-11-14 12:27 | Discharge Summary ---
Date of Service November 14, 2022 Admission HPI Per Admitting Provider The patient is a 67-year-old male with a past medical history including kidney stones, hiatal hernia, diabetes mellitus type 2, dyslipidemia, severe RAMILA, diabetic peripheral neuropathy, familial transthyretin amyloidosis, hypertension, obesity and hiatal hernia. Patient reports undergoing a prostate biopsy on 11/08/2022 by urology, and over the past 24 hours has had persistent fevers, chills, shaking tremors, fatigue and lethargic. Principal Diagnosis Sepsis with bacteremia, E. coli UTI and bacteremia, fluid overload with pulmonary edema, acute hypoxic respiratory failure Discharge Exam General-alert and oriented x3, no fevers, no chills HEENT-head atraumatic and normocephalic, pupils equal and reactive to light, extraocular muscles intact Neck-no lymphadenopathy or thyromegaly, trachea midline Chest-bibasilar inspiratory rales have improved. No wheezing. No dullness to percussion Cardiac-regular rate and rhythm, normal S1 and S2 Abdomen-normal bowel sounds, nontender, no hepatosplenomegaly Extremities-no cyanosis, clubbing, or edema Neuro-cranial nerves II through XII intact, motor and sensory function within normal limits, strength symmetrical with generalized weakness , no focal deficits Psych-normal affect, normal mood Discharge Data Allergies Allergy/AdvReac Type Severity Reaction Status Date / Time No Known Allergies Allergy Unknown Verified 11/08/22 14:39 Consultations 11/09/22 20:52 ED Decision to Admit Stat Hospital Course (1) Sepsis due to urinary tract infection: Present on admission. E. coli isolated in the urine and also in the blood. Sensitive to Rocephin. Switch to cephalexin at discharge to complete a 2-week course (2) Pulmonary edema: From excessive fluid resuscitation given in the ED. Parenteral Lasix diuresis has helped considerably. Chest x-ray today looks clear but he still is requiring supplemental oxygen per nasal cannula which eventually will be weaned off. I do not think he will need any further diuretic therapy at discharge. (3) Acute respiratory failure with hypoxia: Supplemental oxygen per nasal cannula to maintain saturation greater than 90%. Wean off as tolerated. Treat underlying pulmonary edema. Improving. He will be discharged on oxygen at 2 L/min which can be discontinued at a later date when no longer needed (4) Kidney stones: Stable. No need for any intervention at this point in time (5) CKD (chronic kidney disease), stage III: Stable. Monitor intake and output. Serial labs (6) Type 2 diabetes mellitus: ADA diet. Metformin has been resumed. Sliding scale coverage as needed (7) Dyslipidemia: Stable. Continue statin therapy (8) Severe obstructive sleep apnea: stable. CPAP as needed (9) Hypertension: Blood pressure has risen significantly since admission. Lisinopril has been restarted. Now improved (10) Hypomagnesemia: Parenteral replacement. Serial lab. Corrected (11) Anemia: Chronic. No evidence of GI bleeding. Serial labs Plan Home today with oxygen, November 14. Continue cephalexin for 10 more days Total Time Total Time Spent Total Time Spent (In Minutes): 45-minute Discharge Plan Discharge Items Patient Disposition: Home - Self-Care Reason For Visit: SEPSIS DUE TO UTI Discharge Diagnosis: Sepsis, bacteremia, E. coli UTI, fluid overload, acute pulmonary edema, acute hypoxic respiratory failure Activity: Resume your previous activity Activity Comment: Wear oxygen continuously at 2 L/min. Your primary care provider will deter Non-emergency contact: Primary Care Provider Call non-emergency contact if: your symptoms worsen Follow-up/Referrals: Cayetano Underwood MD [Primary Care Provider] - Diet: Carb Consistent or DM2 and Heart Healthy Addtl Attending Provider Instructions: Wear oxygen continuously at 2 L/min. Take cephalexin for 10 more days Pending Studies at Discharge: No Stand-Alone Forms: My [facility] [place], Smoking Cessation Medications and DC Order Prescriptions: New cephalexin 500 mg capsule 500 mg PO TID 10 Days Qty: 30 0RF Continued (DME) pen needle, diabetic [BD Ultra-Fine Mini Pen Needle] 31 gauge x 3/16" needle See Dose Instructions .ROUTE .MEDSUPPLY Qty: 500 1RF Rx Instructions: use 5 needle daily cholecalciferol (vitamin D3) 50 mcg (2,000 unit) capsule 100 mcg PO DAILY Qty: 30 0RF lisinopril 20 mg tablet 20 mg PO QAM Qty: 90 3RF Ozempic 2 mg/dose (8 mg/3 mL) pen injector 2 mg subcut Q7D 90 Days Qty: 9 3RF Hold Instructions: out of stock insulin glargine [Basaglar KwikPen U-100 Insulin] 100 unit/mL (3 mL) insulin pen See Rx Instructions .ROUTE .COMPLEX Qty: 45 3RF Dose Instruction: INJECT 50 UNITS SUBCUTANEOUSLY DAILY FOR TYPE 2 DIABETES Rx Instructions: INJECT 50 UNITS SUBCUTANEOUSLY DAILY FOR TYPE 2 DIABETES (DME) OneTouch Ultra Test Strip See Rx Instructions .Route Qty: 300 3RF Rx Instructions: test blood sugar 3 xday metformin 1,000 mg tablet 1,000 mg PO BID Qty: 180 3RF Novolin N FlexPen 100 unit/mL (3 mL) insulin pen 25 unit subcut QPM Qty: 30 3RF pantoprazole 40 mg tablet,delayed release (DR/EC) 40 mg PO DAILY Qty: 90 1RF cyanocobalamin (vitamin B-12) 500 mcg tablet 1,000 mcg PO QAM tamsulosin 0.4 mg capsule 0.4 mg PO DAILY 20 Days Qty: 30 2RF amitriptyline 75 mg tablet 75 mg PO HS 90 Days Qty: 90 3RF Rx Instructions: 75 mg PO DAILY AT BEDTIME; atorvastatin 40 mg tablet 40 mg PO QPM Qty: 90 3RF insulin aspart U-100 [Novolog FlexPen U-100 Insulin] 100 unit/mL (3 mL) insulin pen See Rx Instructions SQ TID Qty: 60 3RF Rx Instructions: 10 units with breakfast; 15 units with lunch, 20 units with dinner, subcutaneously three times a day; TDD up to 60 units aspirin 81 mg Tablet,Delayed Release (Dr/Ec) 81 mg PO QPM oxybutynin chloride [Ditropan XL] 5 mg tablet extended release 24hr 5 mg PO DAILY Qty: 30 0RF Discharge Orders: Discharge Order (Routine); Ordered 11/14/22 Ordered By: Umang Rodriguez/Other Patient Handouts: Managing Type 2 Diabetes Admission Data Admit Date/Time: 11/09/22 22:14 Attending Provider: Umang Michelle Admit Provider: Jonatan Damian Primary Care Provider: Cayetano Underwood V. Other Providers: Jonatan Damian Coding Level of Care Code 57168 INP/OBS DISCH >30 MIN Diagnoses Sepsis due to urinary tract infection A41.9; N39.0 Pulmonary edema J81.1 Acute respiratory failure with hypoxia J96.01 Kidney stones N20.0 CKD (chronic kidney disease), stage III N18.30 Type 2 diabetes mellitus E11.9 Dyslipidemia E78.5 Severe obstructive sleep apnea G47.33 Hypertension I10 Hypomagnesemia E83.42 Anemia D64.9
--- NOTE | 2022-11-18 13:55 | Coding Query ---
CODING QUERY FOR UNCONTROLLED DIABETES To promote full compliance with coding requirements relating to patient care, provider participation is requested in all cases of senior c developer uncertainty. Please assist us with the question(s) below: Coding Question: The term uncontrolled Diabetes was used throughout the record. To be able to code this diagnosis properly, could you please clarify the diagnosis below: ( ) Uncontrolled Diabetes meaning hypoglycemia ( x ) Uncontrolled Diabetes meaning hyperglycemia ( ) Other (please specify) Principal Diagnosis: "that condition established after study, to be chiefly responsible for occasioning the admission of the patient to the hospital for care." Co-Existing Principal Diagnosis: "when two or more diagnoses equally meet the criteria for principal diagnosis as determined by the circumstances of admission, diagnostic work up, and/or therapy provided, and the Alphabetic Index, Tabular List, or another coding guideline does not provide sequencing direction, any one of the diagnoses may be sequenced first." "When the physician has documented what appears to be a current diagnosis in the body of the record, but has not included the diagnosis in the final diagnostic statement, the physician should be asked whether the diagnosis should be added." (Source Coding [facility] 2 QTR90. p3-4) RAMÓN
== END 2022-11-14 13:54 | disposition home or self-care (01) | DRG 862 ==
LOC: ED 19:10 → SUATTDRO 22:14 → 2N 22:14 → 1E 11-10 15:31 → 2S 11-14 06:34